=== PATIENT | female | born 1950 | race Caucasian/White ===

== ENCOUNTER 2019-03-11 10:42 | Outpatient (RCR) | payer MEDICARE, SELFPAY | END 2019-04-22 15:10 | disposition home or self-care (01) | LOC: CHSSENLIFE 10:42 | PROVIDERS: PCP Family Medicine; Visit Provider Psychiatry & Neurology Psychiatry | DX: F33.41 Major depressive disorder, recurrent, in partial remission (principal) | CPT/HCPCS: 90792; 90853; 99213; G0463 ==

== ENCOUNTER 2019-06-23 15:44 | Outpatient (RCR) | payer MEDICARE, SELFPAY | END 2019-09-21 23:59 | disposition home or self-care (01) | LOC: CHSSENLIFE 15:44 | PROVIDERS: Visit Provider Psychiatry & Neurology Psychiatry | DX: F33.1 Major depressive disorder, recurrent, moderate (principal); F01.50 Vascular dementia, unspecified severity, without behavioral disturbance, psychotic disturbance, mood disturbance, and anxiety | CPT/HCPCS: 90792; 90834; 90837; 90853; 99213; G0463 ==

== ENCOUNTER 2019-07-04 21:21 | Emergency (ER) | payer MEDICARE, SELFPAY ==
--- NOTE | ~2019-07-04 | CT_ITS ---
EXAMINATION: CT brain wo con DATE: 07/04/2019 22:44 INDICATION: Slurred speech, dizziness, paresis. History of cerebrovascular accident. TECHNIQUE: Computed tomography (CT) of the head was performed without intravenous contrast. The mA wa s adjusted according to patient size. Iterative reconstruction technique was employed. Exam dose: 60 5.33 mGy-cm total exam DLP. COMPARISON: 02/27/2019 CT brain FINDINGS: Again noted is an old cerebrovascular accident with involvement of the right frontal, tempo ral and parietal lobes and right basal ganglia in the middle cerebral artery distribution. CT is not sensitive for detection of hyperacute ischemic infarct. Otherwise no intracranial mass lesi on or hemorrhage or cerebrovascular accident, midline shift or mass effect is detected. There are bilateral vertebral artery and carotid siphon internal carotid artery calcifications. There is nonspecific diminished attenuation cerebral white matter, likely related to chronic small vessel ischemic changes. No subdural or epidural hematoma is evident. No mastoid effusions are noted. The included paranasal sinuses are unremarkable. No fracture or bone destruction of the cranial vault. IMPRESSION: Chronic right-sided cerebrovascular infarct in right middle cerebral artery territory; n o acute intracranial finding Cerebral atherosclerosis and chronic small vessel ischemic changes of the cerebral white matter Reviewed, dictated and finalized at [facility]. Reviewed, dictated and finalized at [facility]. IMPRESSION: Chronic right-sided cerebrovascular infarct in right middle cerebr al artery territory; no acute intracranial finding Cerebral atherosclerosis and chronic small vessel ischemic changes of the cereb ral white matter
--- NOTE | ~2019-07-04 | CT_ITS ---
EXAMINATION: CTA chest PE protocol DATE: 07/04/2019 23:24 INDICATION: Chest pain. Positive d-dimer. TECHNIQUE: Computed tomography angiography (CTA) of the chest was performed with 100 mL Omnipaque-350 intravenous contrast timed to evaluate the pulmonary arteries. Coronal maximum intensity projection 3D-reconstructions were created by the technologist. Automated exposure control and iterative reconst ruction technique were employed. Exam dose: 694.50 mGy-cm total exam DLP. COMPARISON: 07/06/2018 CT chest abdomen pelvis 09/16/2017 CT pulmonary scan FINDINGS: There is technically fair contrast opacification of the pulmonary arteries. Examination is limited by motion. There is no apparent pulmonary embolus to the larger segmental pulmonary arterial level. The peripheral vasculature is not optimally evaluated for pulmonary embolism. There is aortic, great vessel and coronary artery calcification. No thoracic or proximal abdominal ao rtic aneurysm or dissection. No hilar or mediastinal mass lesion or lymphadenopathy. Thyroid goiter is noted. There is a small sliding hiatal hernia. Respiratory motion compromises evaluation of the lungs but no infiltrate or consolidation is evident. Included skeletal structures are unremarkable. IMPRESSION: No evidence of pulmonary embolism to these larger segmental pulmonary arterial level Reviewed, dictated and finalized at [facility]. Reviewed, dictated and finalized at [facility]. IMPRESSION: No evidence of pulmonary embolism to these larger segmental pulmon daphne arterial level
--- NOTE | ~2019-07-04 | XR_ITS ---
EXAMINATION: XR chest 2V DATE: 07/04/2019 22:45 INDICATION: Chest pain and weakness TECHNIQUE: frontal and lateral views of the chest were obtained. COMPARISON: Chest radiograph and CT dated 07/06/2018 FINDINGS: The lungs remain clear with no focal airspace opacities, pulmonary edema, pleural effusion or pneumot horax. The cardiomediastinal silhouette is normal. Mild thoracic spondylosis. IMPRESSION: 1. No acute cardiopulmonary disease. Reviewed, dictated and finalized at [facility].
[2019-07-04 21:30] VITALS: BP 127/83; PULSE 70; RESP 24; TEMP 37.1; O2SAT 97
--- NOTE | 2019-07-04 21:34 | ECG_ITS ---
Measurements Intervals [place] Rate: 63 P: 31 [place]: 221 QRS: -38 QRSD: 109 T: 66 QT: 417 QTc: 428 Interpretive Statements SINUS RHYTHM WITH FIRST DEGREE AV BLOCK VENTRICULAR PREMATURE COMPLEX LEFT AXIS DEVIATION BASELINE ARTIFACT- I, II, III, AVR, AVL, AVF ABNORMAL ECG Electronically Signed On 07-05-2019 7:29:55 CDT by Ha Lerner D.O.
--- NOTE | 2019-07-04 21:39 | ED.CHESTPAIN ---
HPI - Chest Pain General Chief Complaint: Neuro Symptoms/Deficit Stated Complaint: ambulance Time Seen by Provider: 07/04/19 21:24 Source: patient Mode of arrival: ambulatory Limitations: no limitations History of Present Illness HPI narrative: 68-year-old woman with a history of CVA, COPD, and smoking comes in today complaining of an episode of chest pain, weakness, and feeling hot while sitting on the toilet this evening. She states her symptoms have resolved. Daughter states that she was having slurred speech at the time and sort of fell to her left without losing consciousness or falling to the floor. She denies previous similar symptoms except to say that she did have a stroke 4 years ago that affected her left side. Only remaining deficit is some numbness in her left pinky and ring fingers. She has had no recent chest pain, shortness of breath, cough, cold symptoms, fever, travel or sick exposures. She states she took a regular size aspirin today like she does every day. MD complaint: chest pain Onset (ago): hour(s) (1) Timing of current episode: episodic and now resolved Prior episodes: No Onset: other (While on the toilet having BM) Pain location: substernal Pain radiation: none Severity: moderate Quality: other (pressure) Relieving factors: nothing Exacerbating factors: nothing Treatment prior to arrival: none Risk Factors Coronary artery disease risk factors: smoking history, hyperlipidemia and hypertension Related Data On Oral Contraceptives: No Home Medications Medication Instructions Recorded Confirmed furosemide 20 mg PO DAILY 02/27/19 07/04/19 meloxicam 7.5 mg PO HS 02/27/19 07/04/19 oxybutynin chloride 10 mg PO DAILY 02/27/19 07/04/19 paroxetine HCl 10 mg PO HS 02/27/19 07/04/19 aspirin [Michael Aspirin] 325 mg PO DAILY 07/04/19 07/04/19 atorvastatin 40 mg PO HS 07/04/19 07/04/19 calcium citrate-vitamin D3 1 tablet PO DAILY 07/04/19 07/04/19 [Calcium Citrate + D] cyanocobalamin (vitamin B-12) 1,000 mcg PO DAILY 07/04/19 07/04/19 [Vitamin B-12] duloxetine 60 mg PO DAILY 07/04/19 07/04/19 garlic extract 600 mg PO ONCE 07/04/19 07/04/19 lisinopril 20 mg PO DAILY 07/04/19 07/04/19 metoprolol succinate 25 mg PO DAILY 07/04/19 07/04/19 omeprazole 20 mg PO DAILY 07/04/19 07/04/19 oxcarbazepine 900 mg PO BID 07/04/19 07/04/19 Allergies Allergy/AdvReac Type Severity Reaction Status Date / Time adhesive Allergy Intermediate BLISTERS Verified 11/15/18 12:35 ON SKIN diazepam Allergy Unknown Verified 01/27/15 10:38 Review of Systems Constitutional: Constitutional: Denies chills, Denies fatigue, Denies fever(s) and Reports weakness Eyes: Eyes: Denies change in vision and Denies photophobia ENT: Denies dysphagia, Denies nasal congestion and Denies sore throat Cardiovascular: Cardiovascular: Reports as per HPI, Reports chest pain and Denies radiating jaw, neck or arm pain Respiratory: Respiratory: Denies cough, Denies dyspnea and Denies wheezing Gastrointestinal: Gastrointestinal: Denies abdominal pain, Denies diarrhea, Denies nausea and Denies vomiting Genitourinary: Genitourinary: Denies hematuria, Denies nocturia and Denies dysuria Integumentary/Breasts: Skin/Breast: Denies pruritus, Denies erythema and Denies rash Neurologic: Denies vertigo, Denies dizziness and Denies syncope Psychiatric: Psychiatric: Denies anxiety and Denies depression Endocrine: Endocrine: Denies polydipsia and Denies polyuria Hematologic/Lymphatic: Hematologic/Lymphatic: Denies easy bleeding and Denies easy bruising Allergic/Immunologic: Allergic/Immunologic: Denies lip swelling and Denies wheezing [facility] Past Medical History Medical History (Updated 07/04/19 @ 23:56 by Hayden Cooper MD) COPD (chronic obstructive pulmonary disease) Dyslipidemia GERD (gastroesophageal reflux disease) H/O: CVA (cerebrovascular accident) Surgical History Surgical History
[2019-07-04 22:06] LABS: Basophils Absolute Auto 0.04 K/mm3 (0.00-0.10); Basophils Percent Auto 0.5 % (0.0-1.0); Eosinophils Absolute Auto 0.12 K/mm3 (0.02-0.50); Eosinophils Percent Auto 1.6 % (1.0-6.0); Hematocrit 35.4 % (35.0-42.0); Hemoglobin 11.2 g/dL (11.7-13.8); Immature Granulocyte Absolute 0.03 K/mm3 (0.00-0.00); Immature Granulocyte Percent A 0.4 % (0.0-0.0); Lymphocytes Absolute Auto 2.15 K/mm3 (1.10-4.50); Lymphocytes Percent Auto 28.6 % (18.0-42.0); Mean Corpuscular HGB Conc 31.6 g/dL (32.0-36.0); Mean Corpuscular Hemoglobin 27.1 pg (27.0-31.0); Mean Corpuscular Volume 85.5 fL (78.0-102.0); Mean Platelet Volume 9.3 fl (9.2-11.8); Monocytes Absolute Auto 0.48 K/mm3 (0.10-0.90); Monocytes Percent Auto 6.4 % (2.0-11.0); Neutrophils Absolute Auto 4.7 K/mm3 (1.7-7.2); Neutrophils Percent Auto 62.5 % (50.0-70.0); Platelet Count Result 273 K/mm3 (150-420); Red Blood Count 4.14 M/mm3 (4.20-5.40); Red Cell Distribution Width 15.4 % (11.6-14.4); White Blood Count 7.5 K/mm3 (4.8-10.8)
[2019-07-04 22:11] LABS: Add Urine Microscopic? YES; Appearance Urine Sl Cloudy (Clear); Bilirubin Urine Negative (Negative); Blood Urine Negative (Negative); Color Urine Yellow (Yellow); Glucose Urine UA Negative (Negative); Ketones Urine Trace (Negative); Leukocyte Esterase Ur Negative LEU/UL (Negative); Nitrate Urine Positive (Negative); Protein Urine Trace (Negative); Specific Grav Ur >= 1.030 (1.010-1.020); Urobilinogen Urine 0.2 mg/dL (0.2-1.0); pH Urine 5.5 (5.0-8.0)
[2019-07-04 22:16] LABS: CRP 0.4 mg/dL (0.0-0.9)
[2019-07-04 22:18] LABS: Occult Blood Negative (Negative)
--- NOTE | 2019-07-04 22:18 | PC.NURSE ---
PT UP TO USE COMMODE AGAIN, PT STATES SHE HAS PASSED A LOT OF STOOL SINCE THIS EVENT.
[2019-07-04 22:19] LABS: Bacteria Urine 3+ /hpf; Mucus Urine None seen /lpf; RBC Urine None seen /hpf (0-2); Squamous Epithelial Cell Urine Moderate /hpf (Few); WBC Urine None seen /hpf (0-3)
[2019-07-04 22:20] LABS: Alanine Aminotransferase 15 U/L (14-59); Albumin Level 3.2 g/dL (3.4-5.0); Alkaline Phosphatase 125 U/L (46-116); Anion Gap 14.2 mmol/L (7-16); Aspartate Amino Transferase 14 U/L (15-37); Bilirubin,Total 0.1 mg/dL (0.00-1.00); Blood Urea Nitrogen 23 mg/dL (7-18); Carbon Dioxide 28 mmol/L (21-32); Chloride 101 mmol/L (98-108); Estimated Glomerular Filt Rate 41; Glucose 136 mg/dL (70-99); Osmolality Calculated 295 mOsm/kg (285-295); Potassium 3.2 mmol/L (3.5-5.1); Sodium 140 mmol/L (136-145); Total Protein 6.6 g/dL (6.4-8.2)
[2019-07-04 22:23] LABS: Partial Thromboplastin Time 22.6 SEC (22.3-31.6)
[2019-07-04 22:25] LABS: Lactic Acid 1.7 mmol/L (0.4-2.0); Troponin I 0.03 ng/mL (0.00-0.056)
[2019-07-04 22:33] LABS: D Dimer 12.88 mg/L (0.19-0.50)
[2019-07-04 23:37] VITALS: BP 178/72; PULSE 73; O2SAT 99
[2019-07-05] MEDS: POTASSIUM CHLORIDE 20 MEQ PACKET (FOR LIQUID) PO (00:02)
--- NOTE | 2019-07-05 00:25 | PC.NURSE ---
no complaint of chest pain per patient, im ready to go home .
[2019-07-05 00:30] VITALS: BP 180/77; PULSE 73; RESP 18; TEMP 36.6; O2SAT 97
== END 2019-07-05 00:51 | disposition home or self-care (01) ==
PROVIDERS: Emergency Provider Emergency Medicine
DX: N39.0 Urinary tract infection, site not specified (principal); R07.9 Chest pain, unspecified; J44.9 Chronic obstructive pulmonary disease, unspecified; E78.5 Hyperlipidemia, unspecified; K21.9 Gastro-esophageal reflux disease without esophagitis; Z86.73 Personal history of transient ischemic attack (TIA), and cerebral infarction without residual deficits
CPT/HCPCS: 36415; 70450; 71046; 71275; 80053; 81001; 82272; 83605; 84484; 85025; 85380; 85610; 85730; 86140; 87040; 87077; 87086; 87088; 87186; 93005; 96365; 99284; A9270; J0696; Q9965

== ENCOUNTER 2019-09-16 13:48 | Outpatient (RCR) | payer MEDICARE, SELFPAY | END 2019-10-28 14:09 | disposition home or self-care (01) | LOC: CHSSENLIFE 13:48 | PROVIDERS: PCP Family Medicine; Visit Provider Psychiatry & Neurology Psychiatry | DX: F33.1 Major depressive disorder, recurrent, moderate (principal); F01.50 Vascular dementia, unspecified severity, without behavioral disturbance, psychotic disturbance, mood disturbance, and anxiety | CPT/HCPCS: 90853; 99213; G0463 ==

== ENCOUNTER 2019-11-15 23:18 | Emergency (ER) | payer MEDICARE, SELFPAY ==
--- NOTE | ~2019-11-15 | XR_ITS ---
EXAMINATION: XR chest 1V portable EXAM DATE: 11/16/2019 00:49 INDICATION: Syncope, vomiting. TECHNIQUE: Portable AP frontal chest x-ray was obtained. Comparison is made to prior examination from 07/04/2019. FINDINGS: The lungs are clear. There are no pleural effusions. Cardiac silhouette is prominent but magnified on this AP technique. There is no pneumothorax suspected. The bones and soft tissues are unremarkable. IMPRESSION: No acute cardiopulmonary findings. Reviewed, dictated and finalized at [facility].
--- NOTE | ~2019-11-15 | CT_ITS ---
EXAMINATION: CT brain & sinus wo con DATE: 11/15/2019 23:35 INDICATION: Syncopal episode TECHNIQUE: Computed tomography (CT) of the head was performed without intravenous contrast. Sagittal and coronal reconstructions were performed. The mA was adjusted according to patient size. Iterative reconstruction technique was employed. The dose-length product was 681.00 mGy-cm. COMPARISON: head CT dated 07/04/2019 FINDINGS: Again seen are old infarcts in the right frontal, parietal and occipital lobes, also involving the ri ght basal ganglia. No acute intracranial hemorrhage, acute infarction or abnormal extra axial fluid c ollection. No interval change in mild expected dilation of the anterior body of the right lateral marguerite tricle. No mass/mass effect. The orbits, paranasal sinuses and mastoid air cells are normal. Intracra nial calcified cerebral atherosclerosis is noted. IMPRESSION: 1. No acute intracranial process. 2. Old infarcts involving the right frontal, parietal and occipital lobes and right basal ganglia. Reviewed, dictated and finalized at [facility]. IMPRESSION: 1. No acute intracranial process. 2. Old infarcts involving the right frontal, parietal and occipital lobes and r ight basal ganglia.
[2019-11-15 23:18] VITALS: BP 72/36; PULSE 76; RESP 20; TEMP 36.8; O2SAT 96
[2019-11-15 23:30] VITALS: BP 86/54; PULSE 75; RESP 20; O2SAT 98
--- NOTE | 2019-11-15 23:33 | ED.NEUROSD ---
HPI - Neuro Symptoms/Deficit General Chief Complaint: Suspected CVA Stated Complaint: Syncope episode Time Seen by Provider: 11/15/19 23:34 History of Present Illness HPI Narrative: 68-year-old female patient is brought to the emergency department by EMS from her residence with complaints of a syncopal episode. According to the daughter the patient had been doing fine until she went into the bathroom because she felt like she was going to have a bowel movement. The patient called the doctor in [place] to help her to get up and had 1-2 small emesis and was very lightheaded and was in and out of consciousness. There was no injury sustained at the time. The EMS was called. EMS noted some facial drooping as well as placed distally on the left side. The patient was taken straight to the CT scan for CVA protocol. The patient is fully awake and is able to provide the history states that she felt lightheaded as she was sitting on the toilet. She denies having had any headache or chest pain. She denies having abdominal pain. She does remember the paramedics picking her up. The patient has had a similar episode in the past according to her daughter and has had history of TIAs. in the past. Per daughter the patient has had frequent falls at home in the recent past. Related Data Home Medications Medication Instructions Recorded Confirmed furosemide 20 mg PO DAILY 02/27/19 07/04/19 meloxicam 7.5 mg PO HS 02/27/19 07/04/19 oxybutynin chloride 10 mg PO DAILY 02/27/19 07/04/19 paroxetine HCl 10 mg PO HS 02/27/19 07/04/19 aspirin [Michael Aspirin] 325 mg PO DAILY 07/04/19 07/04/19 atorvastatin 40 mg PO HS 07/04/19 07/04/19 calcium citrate-vitamin D3 1 tablet PO DAILY 07/04/19 07/04/19 [Calcium Citrate + D] cyanocobalamin (vitamin B-12) 1,000 mcg PO DAILY 07/04/19 07/04/19 [Vitamin B-12] duloxetine 60 mg PO DAILY 07/04/19 07/04/19 garlic extract 600 mg PO ONCE 07/04/19 07/04/19 lisinopril 20 mg PO DAILY 07/04/19 07/04/19 metoprolol succinate 25 mg PO DAILY 07/04/19 07/04/19 omeprazole 20 mg PO DAILY 07/04/19 07/04/19 oxcarbazepine 900 mg PO BID 07/04/19 07/04/19 Allergies Allergy/AdvReac Type Severity Reaction Status Date / Time adhesive Allergy Intermediate BLISTERS Verified 11/15/18 12:35 ON SKIN diazepam Allergy Unknown Verified 01/27/15 10:38 Review of Systems Review of Systems: All systems reviewed & are unremarkable except as noted in HPI and below Constitutional: Constitutional: Reports no additional constitutional complaints, Denies chills, Denies fatigue, Denies fever(s) and Denies weakness Eyes: Eyes: Reports no additional eye complaints ENT: Denies dysphagia, Reports dizziness, Denies nasal congestion and Denies sore throat Cardiovascular: Cardiovascular: Denies chest pain, Denies rapid heart rate and Denies slow heart rate Respiratory: Respiratory: Reports no additional respiratory complaints, Denies cough and Denies dyspnea Gastrointestinal: Gastrointestinal: Denies abdominal pain, Denies nausea and Reports vomiting Genitourinary: Genitourinary: Reports no additional female genitourinary complaints Musculoskeletal: Musculoskeletal: Reports no additional musculoskeletal complaints Integumentary/Breasts: Skin/Breast: Reports system reviewed and no additional complaints, except as docu Neurologic: Reports system reviewed and no additional complaints, except as documented, Reports dizziness and Reports syncope PMFSH Past Medical History Medical History COPD (chronic obstructive pulmonary disease) Dyslipidemia GERD (gastroesophageal reflux disease) H/O: CVA (cerebrovascular accident) Surgical History Surgical History H/O arthroscopic knee surgery H/O partial nephrectomy left H/O: hysterectomy Hx of tonsillectomy Hx of ventral hernia repair Lipoma of back Family History Family History (Reviewed
--- NOTE | 2019-11-15 23:41 | ECG_ITS ---
Measurements Intervals [place] Rate: 68 P: 38 [place]: 191 QRS: -50 QRSD: 102 T: 56 QT: 410 QTc: 437 Interpretive Statements SINUS RHYTHM LEFT AXIS DEVIATION INCOMPLETE RIGHT BUNDLE BRANCH BLOCK BORDERLINE ST ABNORMALITY- HIGH LATERAL LEADS BASELINE ARTIFACT- I, II, III, AVR, AVL, AVF, V1 BORDERLINE ECG Electronically Signed On 11-16-2019 6:55:05 CDT by Ha Lerner D.O.
[2019-11-15 23:47] VITALS: BP 86/54; PULSE 76; RESP 20; TEMP 36.4; O2SAT 97
[2019-11-15 23:55] LABS: Basophils Absolute Auto 0.05 K/mm3 (0.00-0.10); Basophils Percent Auto 0.5 % (0.0-1.0); Eosinophils Absolute Auto 0.14 K/mm3 (0.02-0.50); Eosinophils Percent Auto 1.3 % (1.0-6.0); Hematocrit 40.4 % (35.0-42.0); Hemoglobin 12.8 g/dL (11.7-13.8); Immature Granulocyte Absolute 0.05 K/mm3 (0.00-0.00); Immature Granulocyte Percent A 0.5 % (0.0-0.0); Lymphocytes Absolute Auto 2.47 K/mm3 (1.10-4.50); Lymphocytes Percent Auto 22.8 % (18.0-42.0); Mean Corpuscular HGB Conc 31.7 g/dL (32.0-36.0); Mean Corpuscular Hemoglobin 26.4 pg (27.0-31.0); Mean Corpuscular Volume 83.3 fL (78.0-102.0); Monocytes Absolute Auto 0.58 K/mm3 (0.10-0.90); Monocytes Percent Auto 5.4 % (2.0-11.0); Neutrophils Absolute Auto 7.5 K/mm3 (1.7-7.2); Neutrophils Percent Auto 69.5 % (50.0-70.0); Platelet Count Result 339 K/mm3 (150-420); Red Blood Count 4.85 M/mm3 (4.20-5.40); Red Cell Distribution Width 15.7 % (11.6-14.4); White Blood Count 10.8 K/mm3 (4.8-10.8)
[2019-11-16] VITALS (7 sets, daily range): BP systolic 90–162; BP diastolic 54–90; PULSE 68–80; RESP 20–24; TEMP 36–37.7; O2SAT 94–97
[2019-11-16 00:08] LABS: Prothrombin Time 10.5 Seconds (9.64-11.0)
[2019-11-16 00:19] LABS: Alanine Aminotransferase 19 U/L (14-59); Albumin Level 3.6 g/dL (3.4-5.0); Alkaline Phosphatase 129 U/L (46-116); Anion Gap 12 mmol/L (8-16); Aspartate Amino Transferase 13 U/L (15-37); Bilirubin,Total 0.3 mg/dL (0.00-1.00); Blood Urea Nitrogen 20 mg/dL (7-18); Calcium 9.1 mg/dL (8.5-10.1); Carbon Dioxide 27 mmol/L (21-32); Chloride 97 mmol/L (98-108); Creatine Kinase 57 U/L (26-192); Estimated Glomerular Filt Rate 36; Glucose 159 mg/dL (70-99); Magnesium 1.9 mg/dL (1.8-2.4); Osmolality Calculated 287 mOsm/kg (285-295); Potassium 3.1 mmol/L (3.5-5.1); Sodium 136 mmol/L (136-145); Total Protein 7.2 g/dL (6.4-8.2)
[2019-11-16 00:21] LABS: Troponin I < 0.02 ng/mL (0.00-0.056)
[2019-11-16 00:40] LABS: Add Urine Microscopic? YES; Appearance Urine Clear (Clear); Bilirubin Urine 1+ (Negative); Blood Urine Negative (Negative); Color Urine Yellow (Yellow); Glucose Urine UA Negative (Negative); Ketones Urine 1+ (Negative); Leukocyte Esterase Ur Negative (Negative); Nitrate Urine Positive (Negative); Protein Urine Trace (Negative); Specific Grav Ur 1.025 (1.010-1.020); Urobilinogen Urine 0.2 mg/dL (0.2-1.0); pH Urine 5.5 (5.0-8.0)
--- NOTE | 2019-11-16 00:45 | PC.NURSE ---
IV in left wrist and right AC both infiltrated. New IV started on right upper chest
[2019-11-16] MEDS: SODIUM CHLORIDE 0.9% IV 1,000 ML 1000 ML (00:48)
[2019-11-16 00:49] LABS: Bacteria Urine 3+ /hpf; RBC Urine 0-2 /hpf (0-2); Squamous Epithelial Cell Urine Rare /hpf (Few); WBC Urine 0-3 /hpf (0-3)
--- NOTE | 2019-11-16 01:35 | PC.NURSE ---
LISA hernandez from [facility] speaking with dr mack awaiting return call.
--- NOTE | 2019-11-16 02:20 | ED.NEUROSD ---
HPI - Neuro Symptoms/Deficit General Chief Complaint: Suspected CVA Stated Complaint: Syncope episode Time Seen by Provider: 11/15/19 23:34 Related Data Home Medications Medication Instructions Recorded Confirmed furosemide 20 mg PO DAILY 02/27/19 07/04/19 meloxicam 7.5 mg PO HS 02/27/19 07/04/19 oxybutynin chloride 10 mg PO DAILY 02/27/19 07/04/19 paroxetine HCl 10 mg PO HS 02/27/19 07/04/19 aspirin [Michael Aspirin] 325 mg PO DAILY 07/04/19 07/04/19 atorvastatin 40 mg PO HS 07/04/19 07/04/19 calcium citrate-vitamin D3 1 tablet PO DAILY 07/04/19 07/04/19 [Calcium Citrate + D] cyanocobalamin (vitamin B-12) 1,000 mcg PO DAILY 07/04/19 07/04/19 [Vitamin B-12] duloxetine 60 mg PO DAILY 07/04/19 07/04/19 garlic extract 600 mg PO ONCE 07/04/19 07/04/19 lisinopril 20 mg PO DAILY 07/04/19 07/04/19 metoprolol succinate 25 mg PO DAILY 07/04/19 07/04/19 omeprazole 20 mg PO DAILY 07/04/19 07/04/19 oxcarbazepine 900 mg PO BID 07/04/19 07/04/19 Allergies Allergy/AdvReac Type Severity Reaction Status Date / Time adhesive Allergy Intermediate BLISTERS Verified 11/15/18 12:35 ON SKIN diazepam Allergy Unknown Verified 01/27/15 10:38 [facility] Past Medical History Medical History COPD (chronic obstructive pulmonary disease) Dyslipidemia GERD (gastroesophageal reflux disease) H/O: CVA (cerebrovascular accident) Surgical History Surgical History H/O arthroscopic knee surgery H/O partial nephrectomy left H/O: hysterectomy Hx of tonsillectomy Hx of ventral hernia repair Lipoma of back Family History Family History Father Family history of malignant neoplasm Family history of coronary artery disease Family history of renal failure Sibling Family history of kidney stones Family history of diabetes mellitus in first degree relative Family history of coronary artery disease Family history of lupus erythematosus Mother Patient's mother is Acute myocardial infarction Social History Social History Smoking status: Smoker, status unknown Alcohol intake: current Course Vital Signs Vital signs: Vital Signs Temperature 36.8 C 11/15/19 23:18 Pulse Rate 76 11/15/19 23:18 Respiratory Rate 20 11/15/19 23:18 Blood Pressure 72/36 L 11/15/19 23:18 Pulse Oximetry 96 11/15/19 23:18 Temperature 36.8 C 11/15/19 23:18 Pulse Rate 76 11/15/19 23:18 Respiratory Rate 20 11/15/19 23:18 Blood Pressure 72/36 L 11/15/19 23:18 Pulse Oximetry 96 11/15/19 23:18 MDM - Neuro Symptoms/Deficit Lab Data Result diagrams: 11/15/19 23:51 11/15/19 23:51 Labs: Lab Results 11/15/19 11/15/19 11/15/19 Range/Units 23:41 23:51 23:51 WBC 10.8 (4.8-10.8) K/mm3 RBC 4.85 (4.20-5.40) M/mm3 Hgb 12.8 (11.7-13.8) g/dL Hct 40.4 (35.0-42.0) % MCV 83.3 (78.0-102.0) fL MCH 26.4 L (27.0-31.0) pg MCHC 31.7 L (32.0-36.0) g/dL RDW 15.7 H (11.6-14.4) % Plt Count 339 (150-420) K/mm3 MPV 9.0 L (9.2-11.8) fl Immature Gran % (Auto) 0.5 H (0.0-0.0) % Neut % (Auto) 69.5 (50.0-70.0) % Lymph % (Auto) 22.8 (18.0-42.0) % [place] % (Auto) 5.4 (2.0-11.0) % Eos % (Auto) 1.3 (1.0-6.0) % Baso % (Auto) 0.5 (0.0-1.0) % Lymph # (Auto) 2.47 (1.10-4.50) K/mm3 [place] # (Auto) 0.58 (0.10-0.90) K/mm3 Eos # (Auto) 0.14 (0.02-0.50) K/mm3 Baso # (Auto) 0.05 (0.00-0.10) K/mm3 Abs Immat Gran (auto) 0.05 H (0.00-0.00) K/mm3 Absolute Neuts (auto) 7.5 H (1.7-7.2) K/mm3 Absolute Nucleated RBC 0.00 (0.00-0.00) K/mm3 Nucleated RBC % 0.0 (0-0.0) % PT 10.5 (9.64-11.0) Seconds INR 1.0 Sodium (136-145) mmol/L Potassium (3.5-5.1) mmol/L Chloride (98-108) mmol/L
--- NOTE | 2019-11-16 02:38 | PC.NURSE ---
Jigar arrived from ER and placed in room 206.
[2019-11-16] MEDS: SODIUM CHLORIDE 0.9% IV 1,000 ML 150 ML IV CONT (02:59)
--- NOTE | 2019-11-16 03:00 | PC.NURSE ---
Patient to room 206 as ER hold. Patient's daughter accompanied patient. A&Ox3. Patient color pink. Skin w/d. Respirations even and unlabored. #20 IV in right upper chest. Patient's bowles catheter patent and draining small amount of straw colored urine. Patient denies pain/SOB/complaints @ this time. Encouraged daughter to go home and rest and explained that nurse would be done with admission process shortly and then patient would be encouraged to rest also. Call light in reach.
--- NOTE | 2019-11-16 03:30 | PC.NURSE ---
0140 multiple episodes of incontinent stool. skin care given and brief applied. ortho static blood pressures obtained per staff at [facility]. standing 63/27 hr 56 became nauseous, lethargic, pale ,diaphortic,dizzy and had stool on the floor. pt stated i need to sit down now sitting 90/56 64 starting to feel better lying 111/54 64 sapo2 97% room air reported to dr mack,, skin care given.
--- NOTE | 2019-11-16 03:41 | PC.NURSE ---
0205 pt accepted to [facility] [place] daughters request. pt has neuro doctors at that facility. no beds available at this time. pt to go to room 206 for er hold services until bed availability. report to raghav ryder.
--- NOTE | 2019-11-16 04:00 | PC.NURSE ---
Patient appears to be sleeping by the rise and fall of her chest. Respirations even and unlabored. No distress noted. IV fluids infusing without difficulty to site in right upper chest. Sawant catheter patent and draining straw colored urine. Call light in reach.
--- NOTE | 2019-11-16 05:00 | PC.NURSE ---
Patient appears to be sleeping by the rise and fall of her chest. Respirations even and unlabored. No distress noted. IV fluids infusing without difficulty to site in right upper chest. Sawant catheter patent and emptied of straw colored urine. Call light in reach.
--- NOTE | 2019-11-16 07:26 | ED.NEUROSD ---
HPI - Neuro Symptoms/Deficit General Chief Complaint: Suspected CVA Stated Complaint: Syncope episode Time Seen by Provider: 11/15/19 23:34 Related Data Home Medications Medication Instructions Recorded Confirmed furosemide 20 mg PO DAILY 02/27/19 11/16/19 meloxicam 7.5 mg PO HS 02/27/19 11/16/19 oxybutynin chloride 10 mg PO DAILY 02/27/19 11/16/19 paroxetine HCl 10 mg PO HS 02/27/19 11/16/19 aspirin [Michael Aspirin] 325 mg PO DAILY 07/04/19 11/16/19 atorvastatin 40 mg PO HS 07/04/19 11/16/19 calcium citrate-vitamin D3 1 tablet PO DAILY 07/04/19 11/16/19 [Calcium Citrate + D] cyanocobalamin (vitamin B-12) 1,000 mcg PO DAILY 07/04/19 11/16/19 [Vitamin B-12] duloxetine 60 mg PO DAILY 07/04/19 11/16/19 garlic extract 600 mg PO ONCE 07/04/19 11/16/19 lisinopril 20 mg PO DAILY 07/04/19 11/16/19 metoprolol succinate 25 mg PO DAILY 07/04/19 11/16/19 omeprazole 20 mg PO DAILY 07/04/19 11/16/19 oxcarbazepine 900 mg PO BID 07/04/19 11/16/19 Allergies Allergy/AdvReac Type Severity Reaction Status Date / Time adhesive Allergy Intermediate BLISTERS Verified 11/15/18 12:35 ON SKIN diazepam Allergy Unknown Verified 01/27/15 10:38 [facility] Past Medical History Medical History COPD (chronic obstructive pulmonary disease) Dyslipidemia GERD (gastroesophageal reflux disease) H/O: CVA (cerebrovascular accident) Surgical History Surgical History H/O arthroscopic knee surgery H/O partial nephrectomy left H/O: hysterectomy Hx of tonsillectomy Hx of ventral hernia repair Lipoma of back Family History Family History Father Family history of malignant neoplasm Family history of coronary artery disease Family history of renal failure Sibling Family history of kidney stones Family history of diabetes mellitus in first degree relative Family history of coronary artery disease Family history of lupus erythematosus Mother Patient's mother is Acute myocardial infarction Social History Social History Smoking status: Smoker, status unknown Alcohol intake: current Course Vital Signs Vital signs: Vital Signs Temperature 36.8 C 11/15/19 23:18 Pulse Rate 76 11/15/19 23:18 Respiratory Rate 20 11/15/19 23:18 Blood Pressure 72/36 L 11/15/19 23:18 Pulse Oximetry 96 11/15/19 23:18 Temperature 36.0 C L 11/16/19 02:45 Pulse Rate 70 11/16/19 02:45 Respiratory Rate 20 11/16/19 02:45 Blood Pressure 141/68 H 11/16/19 02:45 Pulse Oximetry 94 11/16/19 02:45 MDM - Neuro Symptoms/Deficit Lab Data Result diagrams: 11/15/19 23:51 11/15/19 23:51 Labs: Lab Results 11/15/19 11/15/19 11/15/19 Range/Units 23:41 23:51 23:51 WBC 10.8 (4.8-10.8) K/mm3 RBC 4.85 (4.20-5.40) M/mm3 Hgb 12.8 (11.7-13.8) g/dL Hct 40.4 (35.0-42.0) % MCV 83.3 (78.0-102.0) fL MCH 26.4 L (27.0-31.0) pg MCHC 31.7 L (32.0-36.0) g/dL RDW 15.7 H (11.6-14.4) % Plt Count 339 (150-420) K/mm3 MPV 9.0 L (9.2-11.8) fl Immature Gran % (Auto) 0.5 H (0.0-0.0) % Neut % (Auto) 69.5 (50.0-70.0) % Lymph % (Auto) 22.8 (18.0-42.0) % [place] % (Auto) 5.4 (2.0-11.0) % Eos % (Auto) 1.3 (1.0-6.0) % Baso % (Auto) 0.5 (0.0-1.0) % Lymph # (Auto) 2.47 (1.10-4.50) K/mm3 [place] # (Auto) 0.58 (0.10-0.90) K/mm3 Eos # (Auto) 0.14 (0.02-0.50) K/mm3 Baso # (Auto) 0.05 (0.00-0.10) K/mm3 Abs Immat Gran (auto) 0.05 H (0.00-0.00) K/mm3 Absolute Neuts (auto) 7.5 H (1.7-7.2) K/mm3 Absolute Nucleated RBC 0.00 (0.00-0.00) K/mm3 Nucleated RBC % 0.0 (0-0.0) % PT 10.5 (9.64-11.0) Seconds INR 1.0 Sodium (136-145) mmol/L Potassium (3.5-5.1) mmol/L Chloride (98-108) mmol
[2019-11-16] MEDS: CYANOCOBALAMIN 1,000 MCG TABLET 1000 MCG PO (10:29)
[2019-11-16] MEDS: ASPIRIN 325 MG ENTERIC TABLET PO (10:29)
[2019-11-16] MEDS: DULoxetine HCL 20 MG CAPSULE.DR 60 MG PO (10:29)
[2019-11-16] MEDS: CALCIUM/VITAMIN D 250 MG TABLET 1 TABLET PO (10:30)
[2019-11-16] MEDS: PANTOPRAZOLE 40 MG TABLET PO (10:30)
[2019-11-16] MEDS: OXcarbazepine 300 MG TABLET 900 MG PO (10:30)
--- NOTE | 2019-11-16 10:33 | PC.NURSE ---
called [facility] in [place] to check on bed status. Spoke with Eli. No beds at this time. Will call back again this afternoon.
--- NOTE | 2019-11-16 10:48 | PC.NURSE ---
Sawant catheter removed, fluids stopped per Dr. Lamb. Patient's ortho static vitals neg this AM. Patient up to commode and recliner with gait belt, wheeled walker. Call light in reach.
--- NOTE | 2019-11-16 10:51 | PC.NURSE ---
Naheed MOORE RN and Dr. Lamb updated on bed status at [facility]
[2019-11-16] MEDS: ACETAMINOPHEN 325 MG TABLET 650 MG PO (11:28)
--- NOTE | 2019-11-16 13:40 | PC.NURSE ---
Patient ambulated from recliner to bed. Call light in reach
--- NOTE | 2019-11-16 17:47 | PC.NURSE ---
Report called to Carol carpenter [facility]
--- NOTE | 2019-11-16 19:43 | PC.NURSE ---
Patient left for transfer to [facility] with [facility] ambulance. Patient belongings taken home by daughter.
== END 2019-11-16 19:39 | disposition short-term general hospital (02) ==
LOC: CHSED 11-16 07:35 → CHS2ND 11-16 07:39
PROVIDERS: Emergency Provider Emergency Medicine
DX: I95.1 Orthostatic hypotension (principal); G45.9 Transient cerebral ischemic attack, unspecified; J44.9 Chronic obstructive pulmonary disease, unspecified; E78.5 Hyperlipidemia, unspecified; K21.9 Gastro-esophageal reflux disease without esophagitis
CPT/HCPCS: 36415; 70450; 70486; 71045; 80053; 81001; 82550; 82553; 83735; 84484; 85025; 85610; 93005; 96361; 96365; 99285; A9270; J0696; J7030

== ENCOUNTER 2019-12-04 21:28 | Emergency (ER) | payer MEDICARE, SELFPAY ==
[2019-12-04 21:43] VITALS: BP 141/75; PULSE 80; RESP 20; TEMP 36.3; O2SAT 97
--- NOTE | 2019-12-04 21:56 | ED.GENADULT ---
HPI - General Adult General Chief complaint: Fall Stated complaint: fell out of bed hit left side cut behind ear Related Data Home Medications Medication Instructions Recorded Confirmed furosemide 20 mg PO DAILY 02/27/19 11/16/19 meloxicam 7.5 mg PO HS 02/27/19 11/16/19 oxybutynin chloride 10 mg PO DAILY 02/27/19 11/16/19 paroxetine HCl 10 mg PO HS 02/27/19 11/16/19 aspirin [Michael Aspirin] 325 mg PO DAILY 07/04/19 11/16/19 atorvastatin 40 mg PO HS 07/04/19 11/16/19 calcium citrate-vitamin D3 1 tablet PO DAILY 07/04/19 11/16/19 [Calcium Citrate + D] cyanocobalamin (vitamin B-12) 1,000 mcg PO DAILY 07/04/19 11/16/19 [Vitamin B-12] duloxetine 60 mg PO DAILY 07/04/19 11/16/19 garlic extract 600 mg PO ONCE 07/04/19 11/16/19 lisinopril 20 mg PO DAILY 07/04/19 11/16/19 metoprolol succinate 25 mg PO DAILY 07/04/19 11/16/19 omeprazole 20 mg PO DAILY 07/04/19 11/16/19 oxcarbazepine 900 mg PO BID 07/04/19 11/16/19 Allergies Allergy/AdvReac Type Severity Reaction Status Date / Time adhesive Allergy Intermediate BLISTERS Verified 11/15/18 12:35 ON SKIN diazepam Allergy Unknown Verified 01/27/15 10:38 [facility] Past Medical History Medical History (Updated 12/04/19 @ 21:58 by Jacobo Rodriguez DO) COPD (chronic obstructive pulmonary disease) Dyslipidemia GERD (gastroesophageal reflux disease) H/O: CVA (cerebrovascular accident) Surgical History Surgical History H/O arthroscopic knee surgery H/O partial nephrectomy left H/O: hysterectomy Hx of tonsillectomy Hx of ventral hernia repair Lipoma of back Family History Family History Father Family history of malignant neoplasm Family history of coronary artery disease Family history of renal failure Sibling Family history of kidney stones Family history of diabetes mellitus in first degree relative Family history of coronary artery disease Family history of lupus erythematosus Mother Patient's mother is Acute myocardial infarction Social History Social History Smoking status: Smoker, status unknown Alcohol intake: current Gender identity (if verbalized by the patient): Male Course Vital Signs Vital signs: Vital Signs Temperature 97.3 F L 12/04/19 21:43 Pulse Rate 80 12/04/19 21:43 Respiratory Rate 20 12/04/19 21:43 Blood Pressure 141/75 H 12/04/19 21:43 Pulse Oximetry 97 12/04/19 21:43 Temperature 97.3 F L 12/04/19 21:43 Pulse Rate 80 12/04/19 21:43 Respiratory Rate 20 12/04/19 21:43 Blood Pressure 141/75 H 12/04/19 21:43 Pulse Oximetry 97 12/04/19 21:43 Medical Decision Making Vital Signs Vital Signs: Vital Signs Temperature 97.3 F L 12/04/19 21:43 Pulse Rate 80 12/04/19 21:43 Respiratory Rate 20 12/04/19 21:43 Blood Pressure 141/75 H 12/04/19 21:43 Pulse Oximetry 97 12/04/19 21:43 Temperature 97.3 F L 12/04/19 21:43 Pulse Rate 80 12/04/19 21:43 Respiratory Rate 20 12/04/19 21:43 Blood Pressure 141/75 H 12/04/19 21:43 Pulse Oximetry 97 12/04/19 21:43 Discharge Plan Discharge Clinical Impression: Laceration Patient Disposition: Home, Self-Care Condition: Stable Instructions: Skin Adhesive Care (ED) Additional Instructions: Please return for any new, concerning, or worsening symptoms. Prescriptions: No Action meloxicam 7.5 mg tablet 7.5 mg PO HS RF: 0 paroxetine HCl 20 mg tablet 10 mg PO HS RF: 0 furosemide 20 mg tablet 20 mg PO DAILY RF: 0 oxybutynin chloride 5 mg tablet 10 mg PO DAILY RF: 0 atorvastatin 40 mg Tablet 40 mg PO HS RF: 0 aspirin [Michael Aspirin] 325 mg Tablet 325 mg PO DAILY RF: 0 lisinopril 20 mg Tablet 20 mg PO DAILY RF: 0 cyanocobalamin (vitamin B-12) [Vitamin B-12] 1,000 mcg Tablet 1,000 mcg PO TRINI
[2019-12-04 22:07] VITALS: RESP 16
--- NOTE | 2019-12-04 23:17 | ED.GENADULT ---
HPI - General Adult General Chief complaint: Fall Stated complaint: fell out of bed hit left side cut behind ear Source: patient and family Mode of arrival: ambulatory Limitations: no limitations History of Present Illness HPI narrative: Rachel is a 69 year old woman with a PMH of COPD, dyslipidemia, GERD and previous CVA that presented to the ED with a laceration behind her left ear. She was rolling out of bed when she hit the side of her head on her night stand. No LOC, headache or loss of consciousness. Related Data Home Medications Medication Instructions Recorded Confirmed furosemide 20 mg PO DAILY 02/27/19 11/16/19 meloxicam 7.5 mg PO HS 02/27/19 11/16/19 oxybutynin chloride 10 mg PO DAILY 02/27/19 11/16/19 paroxetine HCl 10 mg PO HS 02/27/19 11/16/19 aspirin [Michael Aspirin] 325 mg PO DAILY 07/04/19 11/16/19 atorvastatin 40 mg PO HS 07/04/19 11/16/19 calcium citrate-vitamin D3 1 tablet PO DAILY 07/04/19 11/16/19 [Calcium Citrate + D] cyanocobalamin (vitamin B-12) 1,000 mcg PO DAILY 07/04/19 11/16/19 [Vitamin B-12] duloxetine 60 mg PO DAILY 07/04/19 11/16/19 garlic extract 600 mg PO ONCE 07/04/19 11/16/19 lisinopril 20 mg PO DAILY 07/04/19 11/16/19 metoprolol succinate 25 mg PO DAILY 07/04/19 11/16/19 omeprazole 20 mg PO DAILY 07/04/19 11/16/19 oxcarbazepine 900 mg PO BID 07/04/19 11/16/19 Allergies Allergy/AdvReac Type Severity Reaction Status Date / Time adhesive Allergy Intermediate BLISTERS Verified 11/15/18 12:35 ON SKIN diazepam Allergy Unknown Verified 01/27/15 10:38 Review of Systems Constitutional: Constitutional: Reports no additional constitutional complaints Eyes: Eyes: Reports no additional eye complaints ENT: Reports system reviewed and no additional complaints, except as documented Cardiovascular: Cardiovascular: Reports no additional cardiovascular complaints Respiratory: Respiratory: Reports no additional respiratory complaints Gastrointestinal: Gastrointestinal: Reports no additional gastrointestinal complaints Genitourinary: Genitourinary: Reports no additional female genitourinary complaints Musculoskeletal: Musculoskeletal: Reports no additional musculoskeletal complaints Integumentary/Breasts: Skin/Breast: Reports as per HPI Neurologic: Reports system reviewed and no additional complaints, except as documented Psychiatric: Psychiatric: Reports no additional psychiatric complaints Endocrine: Endocrine: Reports no additional endocrine complaints Hematologic/Lymphatic: Hematologic/Lymphatic: Reports no additional hematologic/lymphatic complaints Allergic/Immunologic: Allergic/Immunologic: Reports no additional allergic/immunologic complaints PMFSH Past Medical History Medical History COPD (chronic obstructive pulmonary disease) Dyslipidemia GERD (gastroesophageal reflux disease) H/O: CVA (cerebrovascular accident) Surgical History Surgical History H/O arthroscopic knee surgery H/O partial nephrectomy left H/O: hysterectomy Hx of tonsillectomy Hx of ventral hernia repair Lipoma of back Family History Family History Father Family history of malignant neoplasm Family history of coronary artery disease Family history of renal failure Sibling Family history of kidney stones Family history of diabetes mellitus in first degree relative Family history of coronary artery disease Family history of lupus erythematosus Mother Patient's mother is Acute myocardial infarction Social History Social History Smoking status: Smoker, status unknown Alcohol intake: current Gender identity (if verbalized by the patient): Male Exam Const: General: no acute distress and alert Orientation/consciousness: patient nae
== END 2019-12-04 22:08 | disposition home or self-care (01) ==
PROVIDERS: Emergency Provider Family Medicine; PCP Family Medicine
DX: S01.81XA Laceration without foreign body of other part of head, initial encounter (principal); W06.XXXA Fall from bed, initial encounter
CPT/HCPCS: 12011; 99282

== ENCOUNTER 2020-01-05 12:52 | Outpatient (RCR) | payer MEDICARE, SELFPAY ==
--- NOTE | 2020-01-05 13:40 | PTOPEVAL ---
Thank you for referring Rachel Cook to [facility].? The patient is scheduled to be seen for therapy? ___3_x/week for 12 visits. Please review, sign, date and return this plan of care KESHIA. I agree with and certify that the following plan of care is medically necessary. Referring Physician Date Admitting Provider: Attending Provider: PHYSICIAN NOT ON STAFF Referring Provider: *PT Outpatient Evaluation Start: 01/05/20 13:00 Freq: Status: Active Protocol: Document 01/05/20 13:00 JAG (Rec: 01/05/20 13:39 JAG [id number]) Therapy Assessment Status Assessment Status Assessment Status Evaluation Outpatient Past Medical History Neurological History Hx Cerebrovascular Accident (CVA) Yes Hx Seizures Yes Hx Transient Ischemic Attacks (TIA) Yes Cardiovascular History Hx Congestive Heart Failure Yes Hx Hypercholesterolemia Yes Hx Hypertension Yes Respiratory History Hx Bronchitis Yes Gastrointestinal History Hx Gastroesophageal Reflux Disease Yes Musculoskeletal History Hx Orthopedic Surgery Yes: KNEE, WRIST Hx Other Musculoskeletal Disorders Yes HEENT History Hx Tonsillectomy Yes Reproductive History Hx Post Menopausal Yes Psychosocial History Hx Anxiety Yes Hx Depression Yes Evaluation Information Problem Diagnosis frequent falls Onset 12/22/19 Subjective Information Pt. reports that she fell Query Text:As Reported By Patient/ about 2 weeks ago last. She Family reports that she has had numerous falls over the past 6 months. She states that she does use a cane. She states that most falls occur in the home. She is uncertain as to why she falls. She reports that she does have episodes of leg weakness and has trouble getting to a standing position . She reports that her daughter and son-in-law are currently living with her, but she is home alone for most of the day. She reports she remains sedentary for the most part when home alone. She reports that she continues to drive locally, but has family help with tasks such as grocery shopping. She reports
--- NOTE | 2020-01-12 14:12 | PCPTNOTE ---
patient called and cancelled appt for today. ALISA
== END 2020-02-08 23:59 | disposition home or self-care (01) ==
LOC: CHSPT 12:52
DX: R26.81 Unsteadiness on feet (principal); W19.XXXA Unspecified fall, initial encounter
CPT/HCPCS: 97110; 97112; 97116; 97161; 97530

== ENCOUNTER 2020-10-01 18:31 | Inpatient (IN) | payer MEDICARE, SELFPAY ==
--- NOTE | ~2020-10-01 | CT_ITS ---
EXAMINATION: CT abdomen pelvis wo con DATE: 10/01/2020 20:14 INDICATION: Nausea and vomiting TECHNIQUE: Computed tomography (CT) of the abdomen and pelvis was performed without intravenous contr ast. Automated exposure control and iterative reconstruction technique were employed. The dose-length product was 1271.41 mGy-cm. COMPARISON: 11/15/2018 FINDINGS: Lung bases are clear. Heart size is normal. Atherosclerotic coronary artery calcification. No pericar dial or pleural effusion. Small sliding-type hiatal hernia. Mild wall thickening in the distal esopha traci with mild haziness to the immediately surrounding fat suggestive of esophagitis which could be re lated to reflux/recurrent vomiting. Unchanged 2 cm hypodense lesion in the right hepatic lobe most li sultana a cyst or hemangioma. Gallbladder, spleen, pancreas, bilateral adrenal glands and right kidney a re normal. Postoperative changes at the lower pole of the left kidney likely related to prior partial nephrectomy for reported renal cell carcinoma. Again seen is diffuse wall thickening of the colon wh ich in the proximal colon appears related exclusively due to fatty infiltration but which in the more distal colon beginning at the splenic flexure appears to represent a combination of fat and edema wi th mild haziness to the pericolonic fat consistent with likely acute on chronic colitis. No pneumatos is. Small bowel is normal. No obstruction. Sawant catheter in the decompressed bladder. The uterus is not identified and has likely been surgically resected. Very small amount of ascites and the liver and in the deep pelvis. No abscess or free intraperitoneal gas. No pathologically enlarged abdomina l or pelvic lymphadenopathy. Mild thoracic and moderate lumbar spondylosis. Chondrocalcinosis and mil d to moderate osteoarthritis at the bilateral hips. IMPRESSION: 1. Likely acute on chronic distal colitis which could be infectious, inflammatory or ischemic in etio logy. 2. Small sliding-type hiatal hernia and mild wall thickening and surrounding inflammatory stranding a t the distal esophagus suggesting esophagitis related to reflux or recurrent vomiting. 3. Very small amount of likely reactive ascites. Reviewed, dictated and finalized at location A. IMPRESSION: 1. Likely acute on chronic distal colitis which could be infectious, inflammato ry or ischemic in etiology. 2. Small sliding-type hiatal hernia and mild wall thickening and surrounding in flammatory stranding at the distal esophagus suggesting esophagitis related to reflux or recurrent vomiting. 3. Very small amount of likely reactive ascites.
--- NOTE | ~2020-10-01 | CT_ITS ---
EXAMINATION: CT brain wo con DATE: 10/01/2020 20:13 INDICATION: Altered mental status TECHNIQUE: Computed tomography (CT) of the head was performed without intravenous contrast. Sagittal and coronal reconstructions were performed. The mA was adjusted according to patient size. Iterative reconstruction technique was employed. The dose-length product was 605.33 mGy-cm. COMPARISON: head CT dated 11/15/2019 FINDINGS: Again seen are old infarcts in the right frontal, parietal and occipital lobes, also involving the ri ght basal ganglia. No acute intracranial hemorrhage, acute infarction or abnormal extra axial fluid c ollection. No interval change in mild ex vacuo dilation of the anterior body of the right lateral marguerite tricle. No mass/mass effect. The orbits, paranasal sinuses and left mastoid air cells are normal. Hyp opneumatized right mastoid. Intracranial calcified cerebral atherosclerosis is noted. IMPRESSION: 1. No acute intracranial process. 2. Old infarcts involving the right frontal, parietal and occipital lobes and right basal ganglia. Reviewed, dictated and finalized at location A. IMPRESSION: 1. No acute intracranial process. 2. Old infarcts involving the right frontal, parietal and occipital lobes and r ight basal ganglia.
--- NOTE | ~2020-10-01 | XR_ITS ---
EXAMINATION: XR chest 1V portable DATE: 10/01/2020 20:13 INDICATION: Altered mental status TECHNIQUE: frontal view of the chest was obtained. COMPARISON: Chest radiograph dated 11/16/2019 FINDINGS: The lungs remain clear with no focal airspace opacities, pulmonary edema, pleural effusion or pneumot horax. The cardiomediastinal silhouette is normal. Visualized bones and soft tissues are unremarkable . IMPRESSION: 1. No acute cardiopulmonary disease. Reviewed, dictated and finalized at location A.
[2020-10-01 18:30] VITALS: BP 77/48; PULSE 65; RESP 17; TEMP 36.9; O2SAT 99
--- NOTE | 2020-10-01 18:45 | ECG_ITS ---
Measurements Intervals [place] Rate: 59 P: -73 WI: 152 QRS: -67 QRSD: 88 T: 79 QT: 429 QTc: 427 Interpretive Statements SINUS BRADYCARDIA LEFT AXIS DEVIATION LEFT ATRIAL ENLARGEMENT POOR R WAVE PROGRESSION, ANTERIOR LEADS BORDERLINE ECG Electronically Signed On 10-02-2020 6:23:24 CDT by Ha Lerner D.O.
[2020-10-01 19:11] VITALS: BP 70/58
[2020-10-01] MEDS: SODIUM CHLORIDE 0.9% IV 1,000 ML 999 ML IV CONT (19:11)
[2020-10-01 19:17] LABS: Hematocrit 49.2 % (35.0-42.0); Hemoglobin 15.5 g/dL (11.7-13.8); Mean Corpuscular HGB Conc 31.5 g/dL (32.0-36.0); Mean Corpuscular Hemoglobin 26.3 pg (27.0-31.0); Mean Corpuscular Volume 83.4 fL (78.0-102.0); Mean Platelet Volume 9.3 fl (9.2-11.8); Platelet Count Result 476 K/mm3 (150-420); Red Cell Distribution Width 17.2 % (11.6-14.4)
[2020-10-01 19:18] VITALS: BP 92/27; PULSE 65
[2020-10-01] MEDS: NOREPINEPHRINE 8 MG/D5W 250 ML 8 MG/250 ML BAG 9.38 MG IV CONT (19:18)
[2020-10-01 19:22] LABS: White Blood Count 20.9 K/mm3 (4.8-10.8)
[2020-10-01 19:34] LABS: Alanine Aminotransferase 29 U/L (14-59); Albumin Level 3.7 g/dL (3.4-5.0); Alkaline Phosphatase 127 U/L (46-116); Anion Gap 18 mmol/L (8-16); Aspartate Amino Transferase 21 U/L (15-37); Bilirubin,Total 0.4 mg/dL (0.00-1.00); Blood Urea Nitrogen 19 mg/dL (7-18); Calcium 9.4 mg/dL (8.5-10.1); Carbon Dioxide 23 mmol/L (21-32); Chloride 97 mmol/L (98-108); Estimated Glomerular Filt Rate 26; Glucose 171 mg/dL (70-99); Osmolality Calculated 292 mOsm/kg (285-295); SARS-CoV-2 Ag Negative (Negative); Sodium 138 mmol/L (136-145); Total Protein 7.8 g/dL (6.4-8.2); Troponin I 24.3 ng/L (0.00-60.4)
[2020-10-01 19:36] LABS: Lactic Acid Reflex 4.3 mmol/L (0.4-2.0)
[2020-10-01 20:30] VITALS: BP 151/60; PULSE 70
[2020-10-01] MEDS: SODIUM CHLORIDE 0.9% IV 500 ML 999 ML IV CONT (20:32)
--- NOTE | 2020-10-01 21:00 | ED.WEAKNESS ---
HPI - Weakness General Chief complaint: Weakness Stated complaint: ambulance Time Seen by Provider: 10/01/20 18:33 Source: patient, EMS and RN notes reviewed Mode of arrival: EMS Limitations: no limitations History of Present Illness HPI Narrative: Also nausea, vomiting and loose stools. MD Complaint: generalized weakness and lack of energy Onset (ago): hour(s) (6) Duration: progressively worsening Severity: moderate Severity scale (1-10): 6 Relieving factors: none Exacerbating factors: none Associated symptoms: loss of appetite and nausea/vomiting Related Data Home Medications Medication Instructions Recorded Confirmed furosemide 20 mg PO DAILY 02/27/19 10/01/20 oxybutynin chloride 10 mg PO HS 02/27/19 10/01/20 paroxetine HCl 10 mg PO HS 02/27/19 10/01/20 aspirin [Michael Aspirin] 325 mg PO DAILY 07/04/19 10/01/20 atorvastatin 40 mg PO HS 07/04/19 10/01/20 calcium citrate-vitamin D3 1 tablet PO DAILY 07/04/19 10/01/20 [Calcium Citrate + D] cyanocobalamin (vitamin B-12) 1,000 mcg PO DAILY 07/04/19 10/01/20 [Vitamin B-12] duloxetine 60 mg PO DAILY 07/04/19 10/01/20 garlic extract 600 mg PO ONCE 07/04/19 10/01/20 lisinopril 20 mg PO DAILY 07/04/19 10/01/20 metoprolol succinate 25 mg PO DAILY 07/04/19 10/01/20 oxcarbazepine 900 mg PO BID 07/04/19 10/01/20 clopidogrel 75 mg PO DAILY 10/01/20 10/01/20 magnesium oxide 500 mg PO DAILY 10/01/20 10/01/20 tramadol 50 mg PO HS PRN 10/01/20 10/01/20 Allergies Allergy/AdvReac Type Severity Reaction Status Date / Time adhesive Allergy Intermediate BLISTERS Verified 11/15/18 12:35 ON SKIN diazepam Allergy Unknown Verified 01/27/15 10:38 Review of Systems Review of Systems: All systems reviewed & are unremarkable except as noted in HPI and below Constitutional: Constitutional: Reports as per HPI and Reports no additional constitutional complaints Eyes: Eyes: Reports as per HPI and Reports no additional eye complaints ENT: Reports system reviewed and no additional complaints, except as documented and Reports as per HPI Cardiovascular: Cardiovascular: Reports as per HPI and Reports no additional cardiovascular complaints Respiratory: Respiratory: Reports as per HPI and Reports no additional respiratory complaints Gastrointestinal: Gastrointestinal: Reports as per HPI and Reports no additional gastrointestinal complaints Genitourinary: Genitourinary: Reports no additional female genitourinary complaints and Reports as per HPI Musculoskeletal: Musculoskeletal: Reports no additional musculoskeletal complaints and Reports as per HPI Integumentary/Breasts: Skin/Breast: Reports system reviewed and no additional complaints, except as docu and Reports as per HPI Neurologic: Reports system reviewed and no additional complaints, except as documented and Reports as per HPI Psychiatric: Psychiatric: Reports no additional psychiatric complaints and Reports as per HPI Endocrine: Endocrine: Reports no additional endocrine complaints and Reports as per HPI Hematologic/Lymphatic: Hematologic/Lymphatic: Reports no additional hematologic/lymphatic complaints and Reports as per HPI Allergic/Immunologic: Allergic/Immunologic: Reports no additional allergic/immunologic complaints and Reports as per HPI PMFSH Past Medical History Medical History (Updated 10/01/20 @ 21:39 by Lillian Church MD) COPD (chronic obstructive pulmonary disease) Dyslipidemia GERD (gastroesophageal reflux disease) H/O: CVA (cerebrovascular accident) Surgical History Surgical History H/O arthroscopic knee surgery H/O partial nephrectomy left H/O: hysterectomy Hx of tonsillectomy Hx of ventral hernia repair Lipoma of back Family History Family History Father Family history of malignant neoplasm Family history of coronary artery disease Family history of renal failure Sibling Famil
[2020-10-01] MEDS: POTASSIUM CHLORIDE 20 MEQ TABLET 40 MEQ PO (21:24)
[2020-10-01 21:58] LABS: Basophils Absolute Manual 0.41 K/mm3 (0-0.1); Basophils Percent Manual 2 % (0-1); Eosinophils Absolute Manual 0.41 K/mm3 (0.02-0.5); Eosinophils Percent Manual 2 % (1-6); Lymphocytes Percent Manual 12 % (18-44); Monocytes Absolute Manual 1.04 K/mm3 (0.1-0.90); Monocytes Percent Manual 5 % (3-9); Neutrophils Percent Manual 79 % (46-73); Platelet Estimate Adequate (Adequate); Total Cells Counted 100
[2020-10-01 22:01] LABS: Creatine Kinase 56 U/L (26-192)
[2020-10-01 22:11] LABS: Reflex Lactic Acid Yes or No Add Lactic
[2020-10-01] MEDS: MORPHINE SULFATE (*CRX) 2 MG/ML INJ IV PUSH (22:54)
[2020-10-01 23:19] LABS: Lactic Acid 2.6 mmol/L (0.4-2.0)
[2020-10-01 23:39] VITALS: BP 156/86; PULSE 77; RESP 20; TEMP 36.8; O2SAT 96
[2020-10-02] VITALS (9 sets, daily range): BP systolic 120–148; BP diastolic 46–60; PULSE 68–95; RESP 16–20; TEMP 37–37.9; O2SAT 95–98; BMI 37.7
[2020-10-02] MEDS: OXYBUTYNIN CHLORIDE 5 MG TABLET 10 MG PO ×2 (00:08→21:10)
[2020-10-02] MEDS: SODIUM CHLORIDE 0.9% IV 1,000 ML 125 ML IV CONT (00:11)
--- NOTE | 2020-10-02 00:56 | PC.NURSE ---
Pt presented to ER this evening. Pt stated she felt like she needed to have a BM.Pt went into her BR Vomited a little bit, felt weak. Pt called her daughter & son in law. They put pt back into bed. Pt stated she thenBM had a very lg incontinent. Pt stated when family attempted to get pt out of bed, she passed out.
[2020-10-02] MEDS: ONDANSETRON INJ 4 MG/2 ML VIAL IV PUSH (03:25)
--- NOTE | 2020-10-02 04:59 | PC.NURSE ---
150ml dk tara urine obtained for urinary catheter.
--- NOTE | 2020-10-02 05:19 | PC.NURSE ---
Pt insisted to be put up in a chair. Safety explained. Up with gait belt, assist of two. Needed objects in reach. Dr tom,
[2020-10-02] MEDS: ACETAMINOPHEN 325 MG TABLET 650 MG PO (05:45)
--- NOTE | 2020-10-02 05:58 | PC.NURSE ---
Back into bed, gait belt, assist of two. t did very poorly. Layed back in center of bed. Pt encouraged to sit up in bed, assisted with legs back into bed. Bed alarm on.
[2020-10-02 08:14] LABS: Glucose Point of Care 140 mg/dl (65-105)
[2020-10-02 09:00] LABS: Hematocrit 33.9 % (35.0-42.0); Hemoglobin 10.8 g/dL (11.7-13.8); Mean Corpuscular HGB Conc 31.9 g/dL (32.0-36.0); Mean Corpuscular Hemoglobin 26.3 pg (27.0-31.0); Mean Corpuscular Volume 82.5 fL (78.0-102.0); Mean Platelet Volume 9.4 fl (9.2-11.8); Platelet Count Result 304 K/mm3 (150-420); Red Blood Count 4.11 M/mm3 (4.20-5.40); Red Cell Distribution Width 17.2 % (11.6-14.4); White Blood Count 13.1 K/mm3 (4.8-10.8)
[2020-10-02 09:19] LABS: Alanine Aminotransferase 10 U/L (14-59); Albumin Level 2.8 g/dL (3.4-5.0); Alkaline Phosphatase 77 U/L (46-116); Anion Gap 14 mmol/L (8-16); Aspartate Amino Transferase 12 U/L (15-37); Bilirubin,Total 0.3 mg/dL (0.00-1.00); Blood Urea Nitrogen 29 mg/dL (7-18); Calcium 8.3 mg/dL (8.5-10.1); Carbon Dioxide 22 mmol/L (21-32); Chloride 104 mmol/L (98-108); Estimated CRCL calculation 29 ml/min; Estimated Glomerular Filt Rate 24; Glucose 129 mg/dL (70-99); Osmolality Calculated 297 mOsm/kg (285-295); Potassium 3.9 mmol/L (3.5-5.1); Sodium 140 mmol/L (136-145); Total Protein 5.9 g/dL (6.4-8.2)
[2020-10-02] MEDS: MAGNESIUM OXIDE 400 MG TABLET PO (09:30)
[2020-10-02] MEDS: CLOPIDOGREL BISULFATE 75 MG TABLET PO (09:30)
[2020-10-02] MEDS: METOPROLOL SUCCINATE EXT REL 25 MG TABCR PO (09:31)
[2020-10-02] MEDS: lisinopriL 20 MG TABLET PO (09:31)
[2020-10-02 09:37] LABS: Lactic Acid Reflex 1.4 mmol/L (0.4-2.0)
[2020-10-02] MEDS: metroNIDAZOLE 500 MG/ISO 100ML 500 MG/100 ML BAG 100 MG IVPB ×2 (11:39→19:40)
--- NOTE | 2020-10-02 11:52 | PM.IMHP ---
H&P: HPI History of Present Illness Date/Time: 10/02/20 11:52 this is a 69-year-old female that presented to emergency department status post abdominal pain and syncopal episode. Patient has a past medical history of COPD dyslipidemia, GERD, and history of CVA. According to patient she was at a picnic with her family yesterday when she started experiencing abdominal cramping she then proceeded to the restroom to have a bowel movement and became dizzy afterwards she asked her family to put her in the bed while in the bed she had a bowel movement that she describes as liquid. Her daughter then attempted to clean her up and put her in a wheelchair patient notes that while being transported to the restroom to get a shower she had a syncopal episode. Per patient had gotten placement for in case she needed to do CPR only thing she remembers afterwards is being on the floor. She was then transported to our ED department. On admission patient is blood pressure 77/48, 99%, 77, 65, 98.4, WBCs 20.9, hemoglobin 15.5, hematocrit 49.2, platelets 476, sodium 138, potassium 3.0, anion gap 18, BUN 19, creatinine 1.89, blood sugar 140, lactic acid 4.3, liver function test within normal limit, CK 56, troponin, Covid negative, chest x-ray unremarkable, CT of the abdomen indicates likely acute or chronic distal colitis which may be infectious or inflammatory, blood culture pending, EKG sinus bradycardia with a heart rate of 59 patient being admitted for sepsis, colitis, [place], hypokalemia and colitis. The patient denies SOB, CP, palpitation, extremity numbness, lightheadedness, dizziness, constipation, chills, or fever. Patient continues to have diarrhea with left-sided abdominal pain she denies any hematemesis melena or hematochezia. Chief Complaint: Nausea vomiting diarrhea, abdominal pain, syncopal episode Review of Systems Review of Systems: A 14 organ system Review of Systems was performed and pertinent positives included in the HPI, otherwise remaining ROS is negative. [facility] Past Medical History Medical History (Updated 10/02/20 @ 13:07 by JENNIFER Weiss) COPD (chronic obstructive pulmonary disease) Dyslipidemia GERD (gastroesophageal reflux disease) H/O: CVA (cerebrovascular accident) Surgical History Surgical History H/O arthroscopic knee surgery H/O partial nephrectomy left H/O: hysterectomy Hx of tonsillectomy Hx of ventral hernia repair Lipoma of back Family History Family History Father Family history of malignant neoplasm Family history of coronary artery disease Family history of renal failure Sibling Family history of kidney stones Family history of diabetes mellitus in first degree relative Family history of coronary artery disease Family history of lupus erythematosus Mother Patient's mother is Acute myocardial infarction Social History Social History Smoking packs per day: 1 Smoking cigarettes per day: 20.0 Smoking status: Current every day smoker Tobacco type: cigarettes Second hand tobacco smoke exposure: Yes Alcohol intake: former Substance use: never Substance use type: does not use Gender identity (if verbalized by the patient): Female Spiritual care concerns: No Meds Home Medications and Allergies Home Medications Medication Instructions Recorded Confirmed Type furosemide 20 mg PO DAILY 02/27/19 10/01/20 History oxybutynin chloride 10 mg PO HS 02/27/19 10/01/20 History paroxetine HCl 10 mg PO HS 02/27/19 10/01/20 History aspirin [Michael Aspirin] 325 mg PO DAILY 07/04/19 10/01/20 History atorvastatin 40 mg PO HS 07/04/19 10/01/20 History calcium citrate-vitamin D3 1 tablet PO DAILY 07/04/19 10/01/20 History [Calcium Citrate + D] cyanocobalamin (vitamin B-12) 1,000 mcg PO DAILY 07/04/19 10/01/20
[2020-10-02] MEDS: HYDROcodone/acetaminophen (*CRX) 7.5-325 MG TABLET 1 TAB PO ×2 (14:20→18:51)
[2020-10-02 15:04] LABS: Occult Blood Positive (Negative)
[2020-10-02 17:31] LABS: Hematocrit 32.1 % (35.0-42.0); Hemoglobin 10.1 g/dL (11.7-13.8)
[2020-10-02] MEDS: PANTOPRAZOLE SODIUM IV 40 MG VIAL IV PUSH (18:11)
[2020-10-02] MEDS: traZODone HCL 50 MG TABLET PO (21:10)
[2020-10-03] VITALS (7 sets, daily range): BP systolic 149–181; BP diastolic 56–71; PULSE 58–95; RESP 14–20; TEMP 36.2–37.6; O2SAT 96–98
[2020-10-03] MEDS: metroNIDAZOLE 500 MG/ISO 100ML 500 MG/100 ML BAG 100 MG IVPB ×3 (02:05→18:10)
--- NOTE | 2020-10-03 02:11 | PC.NURSE ---
Patient informed development writer that her right leg was itching around the stat lock for the catheter. No redness noted. Project Assistant removed stat lock. explosive ordnance disposal manager notified.
[2020-10-03] MEDS: HYDROcodone/acetaminophen (*CRX) 7.5-325 MG TABLET 1 TAB PO ×4 (02:48→20:56)
--- NOTE | 2020-10-03 03:20 | PC.NURSE ---
Patient asked for a razor and washcloth. Stated she was unable to sleep because her leg hairs were bothering her. Given supplies and patient able to sit up in bed and bring legs up and shave own legs. Patient unable to complete own iveth-care.
[2020-10-03 05:20] LABS: Hematocrit 29.4 % (35.0-42.0); Hemoglobin 9.3 g/dL (11.7-13.8); Mean Corpuscular HGB Conc 31.6 g/dL (32.0-36.0); Mean Corpuscular Hemoglobin 26.3 pg (27.0-31.0); Mean Corpuscular Volume 83.1 fL (78.0-102.0); Mean Platelet Volume 9.5 fl (9.2-11.8); Platelet Count Result 247 K/mm3 (150-420); Red Blood Count 3.54 M/mm3 (4.20-5.40); Red Cell Distribution Width 17.4 % (11.6-14.4); White Blood Count 8.4 K/mm3 (4.8-10.8)
[2020-10-03 05:36] LABS: Alanine Aminotransferase 21 U/L (14-59); Albumin Level 2.6 g/dL (3.4-5.0); Alkaline Phosphatase 66 U/L (46-116); Anion Gap 13 mmol/L (8-16); Aspartate Amino Transferase 20 U/L (15-37); Bilirubin,Total 0.2 mg/dL (0.00-1.00); Blood Urea Nitrogen 20 mg/dL (7-18); Calcium 8.2 mg/dL (8.5-10.1); Carbon Dioxide 23 mmol/L (21-32); Chloride 106 mmol/L (98-108); Estimated CRCL calculation 43 ml/min; Estimated Glomerular Filt Rate 40; Glucose 110 mg/dL (70-99); Magnesium 1.3 mg/dL (1.8-2.4); Osmolality Calculated 297 mOsm/kg (285-295); Potassium 3.3 mmol/L (3.5-5.1); Sodium 142 mmol/L (136-145); Total Protein 5.8 g/dL (6.4-8.2)
[2020-10-03] MEDS: PANTOPRAZOLE SODIUM IV 40 MG VIAL IV PUSH ×2 (08:34→17:26)
[2020-10-03] MEDS: lisinopriL 20 MG TABLET PO (08:34)
[2020-10-03] MEDS: MAGNESIUM OXIDE 400 MG TABLET PO (08:34)
[2020-10-03] MEDS: CLOPIDOGREL BISULFATE 75 MG TABLET PO (08:35)
[2020-10-03] MEDS: METOPROLOL SUCCINATE EXT REL 25 MG TABCR PO (08:35)
[2020-10-03] MEDS: SODIUM CHLORIDE 0.9% IV 1,000 ML 125 ML IV CONT ×2 (08:37→09:00)
--- NOTE | 2020-10-03 09:41 | P.PNIM_ITS ---
Progress Note: A&P Assessment and Plan (1) Sepsis: Qualifiers: Sepsis acute organ dysfunction status: without acute organ dysfunction Sepsis type: sepsis due to unspecified organism Qualified Code(s): A41.9 - Sepsis, unspecified organism <Mulugeta Rutherford FIRE CONTROL OFFICER-C - Last Filed: 10/03/20 12:24> Code(s): A41.9 - Sepsis, unspecified organism <Mulugeta Rutherford, FIRE CONTROL OFFICER-C - Last Filed: 10/03/20 12:24> Status: Acute <Mulugeta Rutherford, FIRE CONTROL OFFICER-C - Last Filed: 10/03/20 12:24> Assessment and Plan: * As evidence of febrile, hypotensive, leukocytosis and elevated lactic acid * Possibly secondary to colitis * Continue IV hydration * Patient received Norepinephrine in the ED * Continue Zosyn and Flagyl * WBCs 20.9>13.1 * Lactic acid 4.3>2.6>1.4 * Imaging indicate colitis * Hemoglobin on admission 15.5 [id number] will monitor for hemorrhage every 6 hours H&H 10/13/2020 SBC 8.4, H/H 9.3/29.4, Afebrile, continue Zosyn and Flagyl, VSS <Mulugeta Rutherford, FIRE CONTROL OFFICER-C - Last Filed: 10/03/20 12:24> (2) Dehydration: Code(s): E86.0 - Dehydration <Mulugeta Rutherford, FIRE CONTROL OFFICER-C - Last Filed: 10/03/20 12:24> Status: Acute <Mulugeta Rutherford FIRE CONTROL OFFICER-C - Last Filed: 10/03/20 12:24> Assessment and Plan: * Continue IV hydration 10/13/2020 overall I&O positive 3600 ml, taking PO fluids well. <Mulugeta Rutherford, FIRE CONTROL OFFICER-C - Last Filed: 10/03/20 12:24> (3) Colitis: Code(s): K52.9 - Noninfective gastroenteritis and colitis, unspecified <Mulugeta Rutherford, FIRE CONTROL OFFICER-C - Last Filed: 10/03/20 12:24> Status: Acute <Mulugeta Rutherford, FIRE CONTROL OFFICER-C - Last Filed: 10/03/20 12:24> Assessment and Plan: * Continue Zosyn and Flagyl * WBCs 20.9>13.1 * Lactic acid 4.3>2.6>1.4 * Imaging indicate colitis * Stool panel pending 10/13/2020 still has LLQ and RLQ pain and tenderness, continue Ab, WBC 8.4 <Mulugeta Cabreramaria g, FIRE CONTROL OFFICER-C - Last Filed: 10/03/20 12:24> (4) Dyslipidemia: Code(s): E78.5 - Hyperlipidemia, unspecified <Mulugeta Cabreramaria g FIRE CONTROL OFFICER-C - Last Filed: 10/03/20 12:24> Status: Acute <Mulugeta Cabreramaria g, FIRE CONTROL OFFICER-C - Last Filed: 10/03/20 12:24> Assessment and Plan: * Continue statins <Mulugeta Cabreramaria g FIRE CONTROL OFFICER-C - Last Filed: 10/03/20 12:24> (5) GERD (gastroesophageal reflux disease): Code(s): K21.9 - Gastro-esophageal reflux disease without esophagitis <Uzair HernandezSiddharth Rutherford FIRE CONTROL OFFICER-C - Last Filed: 10/03/20 12:24> Status: Acute <Mulugeta Cabreramaria g FIRE CONTROL OFFICER-C - Last Filed: 10/03/20 12:24> Assessment and Plan: * Continue pantoprazole <Mulugeta Cabreramaria g FIRE CONTROL OFFICER-C - Last Filed: 12:24> (6) COPD (chronic obstructive pulmonary disease): Code(s): J44.9 - Chronic obstructive pulmonary disease, unspecified <Mulugeta Rousseau Sangeeta FIRE CONTROL OFFICER-C - Last Filed: 10/03/20 12:24> Status: Acute <Mulugeta Cabreramaria g FIRE CONTROL OFFICER-C - Last Filed: 10/03/20 12:24> Assessment and Plan: * Stable * Started as needed albuterol <Mulugeta HernandezSiddharth Rutherford FIRE CONTROL OFFICER-C - Last Filed: 10/03/20 12:24> (7) H/O: CVA (cerebrovascular accident): Code(s): Z86.73 - Personal history of transient ischemic attack (TIA), and cerebral infarction without residual deficits <Mulugeta HernandezSiddharth Rutherford FIRE CONTROL OFFICER-C - Last Filed: 10/03/20 12:24> Status: Acute <AMAN Esquivel - Last Filed: 10/03/20 12:24> Assessment and Plan: * Patient sees a neurologist at [facility] she will need to follow-up with <AMAN Esquivel - Last Filed: 10/03/20 12:24> (8) Syncopal episodes: Code(s): R55 - Syncop
--- NOTE | 2020-10-03 09:41 | PM.IMPN ---
Progress Note: A&P Assessment and Plan (1) Sepsis: Qualifiers: Sepsis acute organ dysfunction status: without acute organ dysfunction Sepsis type: sepsis due to unspecified organism Qualified Code(s): A41.9 - Sepsis, unspecified organism <Mulugeta Rutherford TOOLROOM CLERK-C - Last Filed: 10/03/20 12:24> Code(s): A41.9 - Sepsis, unspecified organism <Mulugeta Rutherford TOOLROOM CLERK-C - Last Filed: 10/03/20 12:24> Status: Acute <Mulugeta Rutherford, TOOLROOM CLERK-C - Last Filed: 10/03/20 12:24> Assessment and Plan: As evidence of febrile, hypotensive, leukocytosis and elevated lactic acid Possibly secondary to colitis Continue IV hydration Patient received Norepinephrine in the ED Continue Zosyn and Flagyl WBCs 20.9>13.1 Lactic acid 4.3>2.6>1.4 Imaging indicate colitis Hemoglobin on admission 15.5 [id number] will monitor for hemorrhage every 6 hours H&H 10/13/2020 SBC 8.4, H/H 9.3/29.4, Afebrile, continue Zosyn and Flagyl, VSS <Mulugeta Rutherford, TOOLROOM CLERK-C - Last Filed: 10/03/20 12:24> (2) Dehydration: Code(s): E86.0 - Dehydration <Mulugeta Rutherford, TOOLROOM CLERK-C - Last Filed: 10/03/20 12:24> Status: Acute <Mulugeta Rutherford TOOLROOM CLERK-C - Last Filed: 10/03/20 12:24> Assessment and Plan: Continue IV hydration 10/13/2020 overall I&O positive 3600 ml, taking PO fluids well. <Mulugeta Rutherford, TOOLROOM CLERK-C - Last Filed: 10/03/20 12:24> (3) Colitis: Code(s): K52.9 - Noninfective gastroenteritis and colitis, unspecified <Mulugeta Rutherford, TOOLROOM CLERK-C - Last Filed: 10/03/20 12:24> Status: Acute <Mulugeta Rutherford, TOOLROOM CLERK-C - Last Filed: 10/03/20 12:24> Assessment and Plan: Continue Zosyn and Flagyl WBCs 20.9>13.1 Lactic acid 4.3>2.6>1.4 Imaging indicate colitis Stool panel pending 10/13/2020 still has LLQ and RLQ pain and tenderness, continue Ab, WBC 8.4 <Mulugeta Rutherford TOOLROOM CLERK-C - Last Filed: 10/03/20 12:24> (4) Dyslipidemia: Code(s): E78.5 - Hyperlipidemia, unspecified <Mulugeta Rutherford TOOLROOM CLERK-C - Last Filed: 10/03/20 12:24> Status: Acute <Mulugeta Rutherford TOOLROOM CLERK-C - Last Filed: 10/03/20 12:24> Assessment and Plan: Continue statins <Mulugeta Rutherford TOOLROOM CLERK-C - Last Filed: 10/03/20 12:24> (5) GERD (gastroesophageal reflux disease): Code(s): K21.9 - Gastro-esophageal reflux disease without esophagitis <Mulugeta Rutherford TOOLROOM CLERK-C - Last Filed: 10/03/20 12:24> Status: Acute <Mulugeta Rutherford TOOLROOM CLERK-C - Last Filed: 10/03/20 12:24> Assessment and Plan: Continue pantoprazole <Mulugeta Rutherford TOOLROOM CLERK-C - Last Filed: 10/03/20 12:24> (6) COPD (chronic obstructive pulmonary disease): Code(s): J44.9 - Chronic obstructive pulmonary disease, unspecified <Mulugeta Rutherford TOOLROOM CLERK-C - Last Filed: 10/03/20 12:24> Status: Acute <Mulugeta Rutherford TOOLROOM CLERK-C - Last Filed: 10/03/20 12:24> Assessment and Plan: Stable Started as needed albuterol <Mulugeta Rutherford TOOLROOM CLERK-C - Last Filed: 10/03/20 12:24> (7) H/O: CVA (cerebrovascular accident): Code(s): Z86.73 - Personal history of transient ischemic attack (TIA), and cerebral infarction without residual deficits <Mulugeta Rutherford TOOLROOM CLERK-C - Last Filed: 10/03/20 12:24> Status: Acute <Mulugeta Rutherford TOOLROOM CLERK-C - Last Filed: 10/03/20 12:24> Assessment and Plan: Patient sees a neurologist at [facility] she will need to follow-up with <AMAN Esquivel - Last Filed: 10/03/20 12:24> (8) Syncopal episodes: Code(s): R55 - Syncope and collapse <AMAN Esquivel - Last Filed: 10/03/20 12:24> Status: Acute <AMAN Esquivel - Last Filed: 10/03/20 12:24> Assessment and Plan: One-time episode Patient does see a neurologist at [facility] for her history of CVA Possibly secondary to dehydration 10/13/2020 no report of dizziness, syncopal episodes, VSS <Mulugeta Hernandez
[2020-10-03] MEDS: POTASSIUM CHLORIDE 20 MEQ TABLET 40 MEQ PO (11:01)
[2020-10-03] MEDS: MAGNESIUM SULF 4 GM/WATER100ML 4 GM/100 ML BAG IVPB (11:02)
[2020-10-03 16:32] LABS: Glucose Point of Care 128 mg/dl (65-105)
[2020-10-03] MEDS: OXYBUTYNIN CHLORIDE 5 MG TABLET 10 MG PO (20:57)
[2020-10-04] VITALS: BP 160/58; PULSE 73; PULSE 75; RESP 20; TEMP 36.9; O2SAT 97
[2020-10-04] MEDS: metroNIDAZOLE 500 MG/ISO 100ML 500 MG/100 ML BAG 100 MG IVPB (02:28)
[2020-10-04 04:00] VITALS: PULSE 88
[2020-10-04 05:13] LABS: Hematocrit 30.1 % (35.0-42.0); Hemoglobin 9.6 g/dL (11.7-13.8); Mean Corpuscular HGB Conc 31.9 g/dL (32.0-36.0); Mean Corpuscular Volume 84.8 fL (78.0-102.0); Mean Platelet Volume 8.8 fl (9.2-11.8); Platelet Count Result 255 K/mm3 (150-420); Red Blood Count 3.55 M/mm3 (4.20-5.40); Red Cell Distribution Width 17.6 % (11.6-14.4); White Blood Count 8.5 K/mm3 (4.8-10.8)
[2020-10-04 05:25] LABS: Anion Gap 9 mmol/L (8-16); Blood Urea Nitrogen 10 mg/dL (7-18); Calcium 8.6 mg/dL (8.5-10.1); Carbon Dioxide 28 mmol/L (21-32); Chloride 107 mmol/L (98-108); Estimated CRCL calculation 57 ml/min; Estimated Glomerular Filt Rate 55; Glucose 105 mg/dL (70-99); Magnesium 1.6 mg/dL (1.8-2.4); Osmolality Calculated 297 mOsm/kg (285-295); Potassium 3.8 mmol/L (3.5-5.1); Sodium 144 mmol/L (136-145)
[2020-10-04 08:00] VITALS: BP 173/69; PULSE 77; RESP 16; TEMP 37.1; O2SAT 98
[2020-10-04] MEDS: PANTOPRAZOLE SODIUM IV 40 MG VIAL IV PUSH (08:46)
[2020-10-04] MEDS: MAGNESIUM SULF 2 GM/WATER 50ML 2 GM/50 ML BAG IVPB (08:46)
[2020-10-04 08:54] VITALS: PULSE 90
[2020-10-04] MEDS: METOPROLOL SUCCINATE EXT REL 25 MG TABCR PO (08:54)
[2020-10-04] MEDS: lisinopriL 20 MG TABLET PO (08:55)
[2020-10-04] MEDS: CLOPIDOGREL BISULFATE 75 MG TABLET PO (08:55)
[2020-10-04] MEDS: MAGNESIUM OXIDE 400 MG TABLET PO (08:55)
--- NOTE | 2020-10-04 10:47 | P.DS_ITS ---
DS: Admitting Diagnosis Admitting Diagnosis Colitis, [place], Hypokalemia, Syncope <Mulugeta CabreraMACI cummins-C - Last Filed: 10/04/20 10:58> DS: Discharge Diagnosis Discharge Diagnosis (1) Sepsis: Qualifiers: Sepsis acute organ dysfunction status: without acute organ dysfunction Sepsis type: sepsis due to unspecified organism Qualified Code(s): A41.9 - Sepsis, unspecified organism <Mulugeta CabreraMACI cummins-C - Last Filed: 10/04/20 10:58> Code(s): A41.9 - Sepsis, unspecified organism <Mulugeta CabreraMACI cummins-C - Last Filed: 10/04/20 10:58> Status: Acute <Mulugeta RutherfordMACI-C - Last Filed: 10/04/20 10:58> Assessment and Plan: * As evidence of febrile, hypotensive, leukocytosis and elevated lactic acid * Possibly secondary to colitis * Continue IV hydration * Patient received Norepinephrine in the ED * Continue Zosyn and Flagyl * WBCs 20.9>13.1 * Lactic acid 4.3>2.6>1.4 * Imaging indicate colitis * Hemoglobin on admission 15.5 [id number] will monitor for hemorrhage every 6 hours H&H 10/03/2020 WBC 8.4, H/H 9.3/29.4, Afebrile, continue Zosyn and Flagyl, VSS 10/04/2020 WBC 8.5, H/H 9.6/30.1, Afebrile, will DC home with Augmentin and Flagyl, VSS <Mulugeta HernandezSiddharth RickMACI cummins-C - Last Filed: 10/04/20 10:58> (2) Dehydration: Code(s): E86.0 - Dehydration <Mulugeta HernandezSiddharth Rutherford APN-C - Last Filed: 10/04/20 10:58> Status: Acute <Mulugeta CabreraMACI cummins-C - Last Filed: 10/04/20 10:58> Assessment and Plan: * Continue IV hydration 10/03/2020 overall I&O positive 3600 ml, taking PO fluids well. 10/04/2020 Taking PO fluids well, no abdominal issues <Mulugeta HernandezSiddharth Rutherford APN-C - Last Filed: 10/04/20 10:58> (3) Colitis: Code(s): K52.9 - Noninfective gastroenteritis and colitis, unspecified <Mulugeta Rutherford, GRADALL OPERATOR-C - Last Filed: 10/04/20 10:58> Status: Acute <Mulugeta Rutherford GRADALL OPERATOR-C - Last Filed: 10/04/20 10:58> Assessment and Plan: * Continue Zosyn and Flagyl * WBCs 20.9>13.1 * Lactic acid 4.3>2.6>1.4 * Imaging indicate colitis * Stool panel pending 10/03/2020 still has LLQ and RLQ pain and tenderness, continue Ab, WBC 8.4 10/04/2020 no abdominal pain today, tolerating food and fluids well. <Mulugeta Rutherford, GRADALL OPERATOR-C - Last Filed: 10/04/20 10:58> (4) Dyslipidemia: Code(s): E78.5 - Hyperlipidemia, unspecified <Mulugeta Rutherford, GRADALL OPERATOR-C - Last Filed: 10/04/20 10:58> Status: Acute <Mulugeta Rutherford, GRADALL OPERATOR-C - Last Filed: 10/04/20 10:58> Assessment and Plan: * Continue statins <Mulugeta Rutherford, GRADALL OPERATOR-C - Last Filed: 10/04/20 10:58> (5) GERD (gastroesophageal reflux disease): Code(s): K21.9 - Gastro-esophageal reflux disease without esophagitis <Mulugeta Rutherford, GRADALL OPERATOR-C - Last Filed: 10/04/20 10:58> Status: Acute <Mulugeta Rutherford, GRADALL OPERATOR-C - Last Filed: 10/04/20 10:58> Assessment and Plan: * Continue pantoprazole <Mulugeta Rutherford, GRADALL OPERATOR-C - Last Filed: 10/04/20 10:58> (6) COPD (chronic obstructive pulmonary disease): Code(s): J44.9 - Chronic obstructive pulmonary disease, unspecified <Mulugeta Rutherford, GRADALL OPERATOR-C - Last Filed: 10/04/20 10:58> Status: Acute <Mulugeta Rutherford, GRADALL OPERATOR-C - Last Filed: 10/04/20 10:58> Assessment and Plan: * Stable * Started as needed albuterol <Mulugeta Rutherford APN-Cruzito - Last Filed: 10/04/20 10:58> (7) H/O: CVA (cerebrovascular accident): Code(s): Z86.73 - Personal history of transient ischemic attack (TIA), and cerebral infarction without residual deficits <Ronnie
--- NOTE | 2020-10-04 10:47 | PM.DS ---
DS: Admitting Diagnosis Admitting Diagnosis Colitis, [place], Hypokalemia, Syncope <Mulugeta HernandezSiddharth Rutherford APN-C - Last Filed: 10/04/20 10:58> DS: Discharge Diagnosis Discharge Diagnosis (1) Sepsis: Qualifiers: Sepsis acute organ dysfunction status: without acute organ dysfunction Sepsis type: sepsis due to unspecified organism Qualified Code(s): A41.9 - Sepsis, unspecified organism <Mulugeta HernandezSiddharth Rutherford APN-C - Last Filed: 10/04/20 10:58> Code(s): A41.9 - Sepsis, unspecified organism <Mulugeta HernandezSiddharth Rutherford APN-C - Last Filed: 10/04/20 10:58> Status: Acute <Mulugeta HernandezSiddharth Rutherford APN-C - Last Filed: 10/04/20 10:58> Assessment and Plan: As evidence of febrile, hypotensive, leukocytosis and elevated lactic acid Possibly secondary to colitis Continue IV hydration Patient received Norepinephrine in the ED Continue Zosyn and Flagyl WBCs 20.9>13.1 Lactic acid 4.3>2.6>1.4 Imaging indicate colitis Hemoglobin on admission 15.5 [id number] will monitor for hemorrhage every 6 hours H&H 10/03/2020 WBC 8.4, H/H 9.3/29.4, Afebrile, continue Zosyn and Flagyl, VSS 10/04/2020 WBC 8.5, H/H 9.6/30.1, Afebrile, will DC home with Augmentin and Flagyl, VSS <Mulugeta HernandezSiddharth Rutherford APN-C - Last Filed: 10/04/20 10:58> (2) Dehydration: Code(s): E86.0 - Dehydration <Mulugeta HernandezSiddharth Rutherford APN-C - Last Filed: 10/04/20 10:58> Status: Acute <Mulugeta HernandezSiddharth Rutherford APN-C - Last Filed: 10/04/20 10:58> Assessment and Plan: Continue IV hydration 10/03/2020 overall I&O positive 3600 ml, taking PO fluids well. 10/04/2020 Taking PO fluids well, no abdominal issues <Mulugeta MarySiddharth Rutherford APN-C - Last Filed: 10/04/20 10:58> (3) Colitis: Code(s): K52.9 - Noninfective gastroenteritis and colitis, unspecified <Mulugeta Rutherford PRODUCTION CLERK-C - Last Filed: 10/04/20 10:58> Status: Acute <Mulugeta Rutherford PRODUCTION CLERK-C - Last Filed: 10/04/20 10:58> Assessment and Plan: Continue Zosyn and Flagyl WBCs 20.9>13.1 Lactic acid 4.3>2.6>1.4 Imaging indicate colitis Stool panel pending 10/03/2020 still has LLQ and RLQ pain and tenderness, continue Ab, WBC 8.4 10/04/2020 no abdominal pain today, tolerating food and fluids well. <Mulugeta Rutherford PRODUCTION CLERK-C - Last Filed: 10/04/20 10:58> (4) Dyslipidemia: Code(s): E78.5 - Hyperlipidemia, unspecified <Mulugeta Rutherford PRODUCTION CLERK-C - Last Filed: 10/04/20 10:58> Status: Acute <Mulugeta Rutherford PRODUCTION CLERK-C - Last Filed: 10/04/20 10:58> Assessment and Plan: Continue statins <Mulugeta Rutherford PRODUCTION CLERK-C - Last Filed: 10/04/20 10:58> (5) GERD (gastroesophageal reflux disease): Code(s): K21.9 - Gastro-esophageal reflux disease without esophagitis <Mulugeta Rutherford PRODUCTION CLERK-C - Last Filed: 10/04/20 10:58> Status: Acute <Mulugeta Rutherford PRODUCTION CLERK-C - Last Filed: 10/04/20 10:58> Assessment and Plan: Continue pantoprazole <Mulugeta Rutherford PRODUCTION CLERK-C - Last Filed: 10/04/20 10:58> (6) COPD (chronic obstructive pulmonary disease): Code(s): J44.9 - Chronic obstructive pulmonary disease, unspecified <Mulugeta Rutherford PRODUCTION CLERK-C - Last Filed: 10/04/20 10:58> Status: Acute <Mulugeta Rutherford PRODUCTION CLERK-C - Last Filed: 10/04/20 10:58> Assessment and Plan: Stable Started as needed albuterol <Mulugeta Hernandez. Vogt, PRODUCTION CLERK-C - Last Filed: 10/04/20 10:58> (7) H/O: CVA (cerebrovascular accident): Code(s): Z86.73 - Personal history of transient ischemic attack (TIA), and cerebral infarction without residual deficits <AMAN Esquivel - Last Filed: 10/04/20 10:58> Status: Acute <AMAN Esquivel - Last Filed: 10/04/20 10:58> Assessment and Plan: Patient sees a neurologist at [facility] she will need to follow-up with <AMAN Esquivel - Last Filed: 10/04/20 10:58> (8) Syncopal episodes: Code(s): R55 - Syncope and collapse <Mulugeta Hernandez
--- NOTE | 2020-10-04 11:39 | PC.NURSE ---
Pt discharged home instable condition. Discharge instructions given to pt. Pt verbalized understanding. Clothing and personal items returned. RN assisted pt to family car via .
[2020-10-12 11:54] LABS: Glucose Point of Care 161 mg/dl (65-105)
== END 2020-10-04 11:25 | disposition home or self-care (01) | DRG 872 ==
LOC: CHSED 18:50 → CHS2ND 21:39
PROVIDERS: Nurse Practitioner; Nurse Practitioner Family; Admitting Provider Emergency Medicine; Emergency Provider Emergency Medicine; PCP Family Medicine; Visit Provider Emergency Medicine
DX: A41.9 Sepsis, unspecified organism (principal); N17.9 Acute kidney failure, unspecified; K52.9 Noninfective gastroenteritis and colitis, unspecified; E86.0 Dehydration; E87.6 Hypokalemia; J44.9 Chronic obstructive pulmonary disease, unspecified; E78.5 Hyperlipidemia, unspecified; R55 Syncope and collapse; Z79.82 Long term (current) use of aspirin; K21.9 Gastro-esophageal reflux disease without esophagitis; Z86.73 Personal history of transient ischemic attack (TIA), and cerebral infarction without residual deficits; Z90.710 Acquired absence of both cervix and uterus; Z20.822 Contact with and (suspected) exposure to COVID-19
CPT/HCPCS: 36415; 70450; 71045; 74176; 80048; 80053; 82550; 82948; 83605; 83735; 84484; 85014; 85018; 85025; 85027; 87040; 87045; 87046; 87177; 87209; 87269; 87272; 87324; 87426; 87427; 89055; 93005; 96361; 96365; 96368; 97161; 97530; 99285; A9270; C9113; C9803; J0696; J2270; J2405; J2543; J3475; J7030; J7040; J7060

== ENCOUNTER 2021-08-30 12:32 | Outpatient (CLI) | payer MEDICARE, SELFPAY ==
--- NOTE | ~2021-08-30 | CT_ITS ---
EXAMINATION: CT abdomen pelvis wo con DATE: 08/30/2021 13:04 INDICATION: Microhematuria. Status post partial nephrectomy. TECHNIQUE: Computed tomography (CT) of the abdomen and pelvis was performed without intravenous contr ast. The dose-length product was 561.53 mGy-cm. Automated exposure control and iterative reconstructi on technique were employed. COMPARISON: CT dated 10/01/2020. FINDINGS: Heart size is normal. No significant pleural or pericardial effusion no significant vascula r abnormality. There is atherosclerosis. Status post partial left nephrectomy. The liver, spleen, sanchez creas, adrenal glands and right kidney are unremarkable. No stones or hydronephrosis. Gallbladder is present. Nonobstructive bowel gas pattern. Small fat-containing umbilical hernia. No abnormal pelvic masses or fluid collections. Status post hysterectomy. There is osteoarthritis of the hips. Moderate lumbar spondylosis. No free air or free fluid. IMPRESSION: 1. No acute abdominal abnormality. Reviewed, dictated and finalized at location A.
== END 2021-08-30 12:33 | disposition home or self-care (01) ==
LOC: CHSIMG 12:33
PROVIDERS: PCP Internal Medicine; Visit Provider Internal Medicine
DX: D50.9 Iron deficiency anemia, unspecified (principal); R31.9 Hematuria, unspecified
CPT/HCPCS: 74176

== ENCOUNTER 2021-09-07 11:22 | Outpatient (CLI) | payer MEDICARE, SELFPAY ==
[2021-09-07 11:44] LABS: Immature Reticulocyte Fraction 17.5 % (2.0-16.52); Reticulocyte Hemoglobin Conten 29.4 pg (28.0-35.0); Reticulocyte Percent 1.15 % (0.50-1.50); Reticulocytes Absolute 0.05 M/mm3 (0.02-0.1)
[2021-09-07 12:26] LABS: Basophils Absolute Auto 0.03 K/mm3 (0.00-0.10); Basophils Percent Auto 0.4 % (0.0-1.0); Eosinophils Percent Auto 1.4 % (1.0-6.0); Ferritin 14 ng/mL (8-252); Hematocrit 35.7 % (35.0-42.0); Hemoglobin 11.6 g/dL (11.7-13.8); Immature Granulocyte Absolute 0.03 K/mm3 (0.00-0.00); Immature Granulocyte Percent A 0.4 % (0.0-0.0); Iron 47 ug/dL (50-170); Lymphocytes Absolute Auto 2.02 K/mm3 (1.10-4.50); Lymphocytes Percent Auto 27.8 % (18.0-42.0); Mean Corpuscular HGB Conc 32.5 g/dL (32.0-36.0); Mean Corpuscular Hemoglobin 26.4 pg (27.0-31.0); Mean Corpuscular Volume 81.3 fL (78.0-102.0); Mean Platelet Volume 9.3 fl (9.2-11.8); Monocytes Absolute Auto 0.47 K/mm3 (0.10-0.90); Monocytes Percent Auto 6.5 % (2.0-11.0); Neutrophils Absolute Auto 4.6 K/mm3 (1.7-7.2); Neutrophils Percent Auto 63.5 % (50.0-70.0); Percent Iron Saturation 13 % (12-57); Platelet Count Result 362 K/mm3 (150-420); Red Blood Count 4.39 M/mm3 (4.20-5.40); Red Cell Distribution Width 17.6 % (11.6-14.4); White Blood Count 7.3 K/mm3 (4.8-10.8)
== END 2021-09-07 11:23 | disposition home or self-care (01) ==
LOC: CHSLAB 11:25
PROVIDERS: PCP Internal Medicine; Visit Provider Internal Medicine
DX: D50.9 Iron deficiency anemia, unspecified (principal); R31.9 Hematuria, unspecified
CPT/HCPCS: 36415; 82728; 83540; 83550; 85025; 85046

== ENCOUNTER 2022-01-16 01:16 | Day surgery (SDC) | payer MEDICARE, SELFPAY ==
[2022-01-02 10:47] VITALS: BMI 34.8
[2022-01-16 11:57] VITALS: BP 132/83; PULSE 70; RESP 18; TEMP 36.1; O2SAT 99
--- NOTE | 2022-01-16 12:08 | WPDANESEPPF ---
Anes - Initial Pre Proc Eval Procedure: Operation Date: 01/16/22 13:45 Proposed Procedures p Colonoscopy - Félix Frank MD Date/Time: 01/16/22 12:08 Surgeon: Félix Frank MD Pre Op Diagnosis: lower GI bleed Patient Data Age: 71 Gender: F Height: 1.65 m Weight: 97 kg Last Vital Signs Temp 36.1 C L 01/16/22 11:57 Pulse 70 01/16/22 11:57 Resp 18 01/16/22 11:57 BP 132/83 01/16/22 11:57 Pulse Ox 99 01/16/22 11:57 O2 Del Method Room Air 01/16/22 11:57 Allergies Allergy/AdvReac Type Severity Reaction Status Date / Time adhesive Allergy Intermediate BLISTERS Verified 01/16/22 11:56 ON SKIN diazepam Allergy Unknown Other Verified 01/16/22 11:56 Home Medications Medication Instructions Recorded Confirmed Type furosemide 20 mg tablet 20 mg PO DAILY PRN Edema 02/27/19 01/02/22 History oxybutynin chloride 5 mg tablet 10 mg PO HS 02/27/19 01/02/22 History cyanocobalamin (vitamin B-12) 1,000 mcg PO DAILY 07/04/19 01/02/22 History 1,000 mcg tablet (Vitamin B-12) duloxetine 60 mg capsule,delayed 60 mg PO DAILY 07/04/19 01/02/22 History release sprinkle garlic extract 600 mg tablet 600 mg PO ONCE 07/04/19 01/02/22 History lisinopril 20 mg tablet 20 mg PO DAILY 07/04/19 01/02/22 History metoprolol succinate 25 mg 25 mg PO DAILY 07/04/19 01/02/22 History tablet,extended release 24 hr oxcarbazepine 600 mg tablet 900 mg PO BID 07/04/19 01/02/22 History clopidogrel 75 mg tablet 75 mg PO DAILY 10/01/20 01/02/22 History acetaminophen 500 mg tablet 1,000 mg PO Q6H PRN Pain 01/02/22 01/02/22 History atorvastatin 80 mg tablet 80 mg PO DAILY 01/02/22 01/02/22 History Patient hx anesthesia problems: none Family hx anesthesia problems: none Results Review: All pre-operative results and documents have been reviewed as part of the pre-operative evaluation. [facility] Past Medical History Medical History (Updated 10/02/20 @ 13:07 by JENNIFER Weiss) COPD (chronic obstructive pulmonary disease) Dyslipidemia GERD (gastroesophageal reflux disease) H/O: CVA (cerebrovascular accident) Surgical History Surgical History H/O arthroscopic knee surgery H/O partial nephrectomy left H/O: hysterectomy Hx of tonsillectomy Hx of ventral hernia repair Lipoma of back Family History Family History Father Family history of malignant neoplasm Family history of coronary artery disease Family history of renal failure Sibling Family history of kidney stones Family history of diabetes mellitus in first degree relative Family history of coronary artery disease Family history of lupus erythematosus Mother Patient's mother is Acute myocardial infarction Social History Social History Smoking packs per day: 1 Smoking cigarettes per day: 20.0 Years smoked: 43 Smoking pack-years: 43.00 Smoking status: Current every day smoker Tobacco type: cigarettes Second hand tobacco smoke exposure: Yes Alcohol intake: current Alcohol use details: occasionally Substance use: never Substance use type: does not use Living arrangements: alone Gender identity (if verbalized by the patient): Female Spiritual care concerns: No Anes - Eval Final PreProcedure Day of Procedure 01/16/22 12:08 Patient weight: obese Heart: regular rate and rhythm Lungs: clear to auscultation and normal air movement Airway: Mallampati scale class II Neurological: alert and oriented Last oral intake: >/= 8 hours ASA classification: III Emergent: no Anesthetic plan: proceed Anesthesia type and monitoring: general GIVS Results Review: All pre-operative results and documents have been reviewed as part of the pre-operative evaluation. Informed Consent: The patient's anesthetic p
--- NOTE | 2022-01-16 12:11 | PM.HPGS ---
History of Present Illness History of Present Illness Consent: Risks, benefits, and alternatives have been discussed and questions answered. Patient agrees to proceed with procedure. Chief complaint: lower GI bleed Narrative: Rachel Cook is a 71 year old female with episode of cramping followed by diarrhea with blood, she almost passed out. She is back to her baseline but never had colonoscopy. Review of Systems Constitutional: Constitutional: Denies headache(s) and Denies weakness Eyes: Eyes: Denies blurry vision ENT: Reports Normal hearing present, Denies headache(s) and Denies neck pain Cardiovascular: Cardiovascular: Denies chest pain and Denies dyspnea Respiratory: Respiratory: Denies dyspnea Gastrointestinal: Gastrointestinal: Reports no additional gastrointestinal complaints Genitourinary: Genitourinary: Denies dysuria Musculoskeletal: Musculoskeletal: Denies neck pain Integumentary/Breasts: Skin/Breast: Denies dry skin Neurologic: Reports Normal hearing present, Denies headache(s) and Denies weakness Psychiatric: Psychiatric: Denies anxiety Endocrine: Endocrine: Denies change in body appearance Hematologic/Lymphatic: Hematologic/Lymphatic: Denies easy bleeding Allergic/Immunologic: Allergic/Immunologic: Denies urticaria PMFSH Past Medical History Medical History (Updated 10/02/20 @ 13:07 by BLAIR Weiss-C) COPD (chronic obstructive pulmonary disease) Dyslipidemia GERD (gastroesophageal reflux disease) H/O: CVA (cerebrovascular accident) Surgical History Surgical History H/O arthroscopic knee surgery H/O partial nephrectomy left H/O: hysterectomy Hx of tonsillectomy Hx of ventral hernia repair Lipoma of back Family History Family History Father Family history of malignant neoplasm Family history of coronary artery disease Family history of renal failure Sibling Family history of kidney stones Family history of diabetes mellitus in first degree relative Family history of coronary artery disease Family history of lupus erythematosus Mother Patient's mother is Acute myocardial infarction Social History Social History Smoking packs per day: 1 Smoking cigarettes per day: 20.0 Years smoked: 43 Smoking pack-years: 43.00 Smoking status: Current every day smoker Tobacco type: cigarettes Second hand tobacco smoke exposure: Yes Alcohol intake: current Alcohol use details: occasionally Substance use: never Substance use type: does not use Living arrangements: alone Gender identity (if verbalized by the patient): Female Spiritual care concerns: No Meds Home Medications and Allergies Home Medications Medication Instructions Recorded Confirmed Type furosemide 20 mg tablet 20 mg PO DAILY PRN Edema 02/27/19 01/02/22 History oxybutynin chloride 5 mg tablet 10 mg PO HS 02/27/19 01/02/22 History cyanocobalamin (vitamin B-12) 1,000 mcg PO DAILY 07/04/19 01/02/22 History 1,000 mcg tablet (Vitamin B-12) duloxetine 60 mg capsule,delayed 60 mg PO DAILY 07/04/19 01/02/22 History release sprinkle garlic extract 600 mg tablet 600 mg PO ONCE 07/04/19 01/02/22 History lisinopril 20 mg tablet 20 mg PO DAILY 07/04/19 01/02/22 History metoprolol succinate 25 mg 25 mg PO DAILY 07/04/19 01/02/22 History tablet,extended release 24 hr oxcarbazepine 600 mg tablet 900 mg PO BID 07/04/19 01/02/22 History clopidogrel 75 mg tablet 75 mg PO DAILY 10/01/20 01/02/22 History acetaminophen 500 mg tablet 1,000 mg PO Q6H PRN Pain 01/02/22 01/02/22 History atorvastatin 80 mg tablet 80 mg PO DAILY 01/02/22 01/02/22 History Allergies Allergy/AdvReac Type Severity Reaction Status Date / Time adhesive Allergy Intermediate BLISTERS Verified 01/16/22 11:56 ON SKIN diazepam
[2022-01-16] MEDS: LACTATED RINGERS 1,000 ML 150 ML IV CONT (12:28)
[2022-01-16 14:16] VITALS: BP 91/47; PULSE 55; RESP 19; O2SAT 98
[2022-01-16 14:26] VITALS: BP 113/52; PULSE 57; RESP 20; O2SAT 98
[2022-01-16 14:36] VITALS: BP 137/58; PULSE 52; RESP 21; O2SAT 100
== END 2022-01-16 14:46 | disposition home or self-care (01) ==
PROVIDERS: PCP Internal Medicine; Visit Provider Internal Medicine Gastroenterology
PROC: 0DJD8ZZ Inspection of Lower Intestinal Tract, Via Natural or Artificial Opening Endoscopic (ICD-10-PCS; CPT 45378; principal; 2022-01-16 13:45)
DX: Z12.11 Encounter for screening for malignant neoplasm of colon (principal); D12.3 Benign neoplasm of transverse colon; D12.5 Benign neoplasm of sigmoid colon; D12.8 Benign neoplasm of rectum; K64.8 Other hemorrhoids; K92.1 Melena; Z87.19 Personal history of other diseases of the digestive system; J44.9 Chronic obstructive pulmonary disease, unspecified; E78.5 Hyperlipidemia, unspecified; K21.9 Gastro-esophageal reflux disease without esophagitis; Z86.73 Personal history of transient ischemic attack (TIA), and cerebral infarction without residual deficits; Z79.02 Long term (current) use of antithrombotics/antiplatelets; Z90.5 Acquired absence of kidney; F17.210 Nicotine dependence, cigarettes, uncomplicated; E66.9 Obesity, unspecified; Z68.35 Body mass index [BMI] 35.0-35.9, adult
CPT/HCPCS: 45385; 88305; J2704; J7120

== ENCOUNTER 2022-01-31 22:31 | Emergency (ER) | payer MEDICARE, SELFPAY ==
--- NOTE | ~2022-01-31 | CT_ITS ---
CT head without contrast Indication: Head injury COMPARISON: 10/01/2020 Technique: Serial scans were obtained through the brain without the administration of contrast. Dose reduction technique was used on this scan by utilizing automated exposure control and iterative recon struction technique. The dose-length product (DLP) was 439.50 mGy-cm. Findings: There is no evidence of intracranial hemorrhage, mass lesion, or acute infarct. 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 The v entricles and subarachnoid spaces are dilated, consistent with mild atrophy. Low attenuation regions are seen within the periventricular white matter bilaterally, likely representing changes from chron ic microvascular ischemic disease. There is no evidence of edema, mass effect or midline shift. The visualized paranasal sinuses and mastoid air cells are clear. Impression: No intracranial hemorrhage, mass, or acute infarct. Stable chronic infarcts in the right frontoparietal regions and right occipital lobe. Atrophy and chronic white matter changes, as above. Reviewed, dictated and finalized at location [] [employer]ICATION[employer] PROJECT LEAD Impression: No intracranial hemorrhage, mass, or acute infarct. Stable chronic infarcts in the right frontoparietal regions and right occipital lobe. Atrophy and chronic white matter changes, as above.
--- NOTE | ~2022-01-31 | CT_ITS ---
CT Facial Bones and Cervical Spine Clinical Indication: Injury Technique: Contiguous axial scans were obtained through the facial bones followed by coronal and sagi ttal reconstructions. Contiguous axial [address] images of the cervical spine were obtained and r econstructed in 2D sagittal and coronal planes on the acquisition scanner. Dose reduction technique w as used on this scan by utilizing automated exposure control and iterative reconstruction technique. The dose-length product (DLP) was 439.50 mGy-cm. Findings: CT facial bones: No acute fracture identified. Probable chronic fracture deformity of the left nasal bone. The visualized paranasal sinuses are clear. Retro-orbital soft tissues appear normal. CT cervical spine: No fracture or subluxation. There is reversal of the normal cervical lordosis. The intervertebral disc spaces are preserved. No prevertebral soft tissue swelling. Partially calcified right thyroid lobe nodules noted. Impression: No definite acute fracture in the facial bones. Probable chronic fracture deformity of left nasal bon e. No fracture or subluxation of the cervical spine. Reviewed, dictated and finalized at location [] MOTIVE PRODUCT SPECIALIST Impression: No definite acute fracture in the facial bones. Probable chronic fracture defor mity of left nasal bone. No fracture or subluxation of the cervical spine.
--- NOTE | 2022-01-31 22:50 | ED.FALL ---
HPI - Fall General Chief Complaint: Fall Stated Complaint: ambulance Source: patient and EMS Mode of arrival: EMS Limitations: no limitations History of Present Illness HPI Narrative: This is a 71-year-old female patient is a DNR that had a fall earlier this evening while going to the bathroom the patient uses a walker has a history of CVA and is on blood thinners currently, patient fell hit her head and the base of her [place] causing a hematoma does have some pain in the neck region and the chin and headache with no blurry vision no loss of consciousness no nausea or vomiting no chest pain no shortness of breath does have a contusion on the left forearm. Otherwise moves all her extremities no neurological deficits. MD complaint: fall Onset (ago): hour(s) Fall from: standing Fall witnessed: no Place fall occurred: home Loss of consciousness: none Severity: moderate Related Data Home Medications Medication Instructions Recorded Confirmed furosemide 20 mg tablet 20 mg PO DAILY PRN Edema 02/27/19 01/31/22 oxybutynin chloride 5 mg tablet 10 mg PO HS 02/27/19 01/31/22 cyanocobalamin (vitamin B-12) 1,000 mcg PO DAILY 07/04/19 01/31/22 1,000 mcg tablet (Vitamin B-12) duloxetine 60 mg capsule,delayed 60 mg PO DAILY 07/04/19 01/31/22 release sprinkle garlic extract 600 mg tablet 600 mg PO ONCE 07/04/19 01/31/22 lisinopril 20 mg tablet 20 mg PO DAILY 07/04/19 01/31/22 metoprolol succinate 25 mg 25 mg PO DAILY 07/04/19 01/31/22 tablet,extended release 24 hr oxcarbazepine 600 mg tablet 900 mg PO BID 07/04/19 01/31/22 clopidogrel 75 mg tablet 75 mg PO DAILY 10/01/20 01/31/22 acetaminophen 500 mg tablet 1,000 mg PO Q6H PRN Pain 01/02/22 01/31/22 atorvastatin 80 mg tablet 80 mg PO DAILY 01/02/22 01/31/22 Allergies Allergy/AdvReac Type Severity Reaction Status Date / Time adhesive Allergy Intermediate BLISTERS Verified 01/16/22 11:56 ON SKIN diazepam Allergy Unknown Other Verified 01/16/22 11:56 Review of Systems Review of Systems: All systems reviewed & are unremarkable except as noted in HPI and below PMFSH Past Medical History Medical History (Updated 02/28/22 @ 16:33 by Jay Elder MD) COPD (chronic obstructive pulmonary disease) Dyslipidemia GERD (gastroesophageal reflux disease) H/O: CVA (cerebrovascular accident) Surgical History Surgical History H/O arthroscopic knee surgery H/O partial nephrectomy left H/O: hysterectomy Hx of tonsillectomy Hx of ventral hernia repair Lipoma of back Family History Family History Father Family history of malignant neoplasm Family history of coronary artery disease Family history of renal failure Sibling Family history of kidney stones Family history of diabetes mellitus in first degree relative Family history of coronary artery disease Family history of lupus erythematosus Mother Patient's mother is Acute myocardial infarction Social History Social History Smoking packs per day: 1 Smoking cigarettes per day: 20.0 Years smoked: 43 Smoking pack-years: 43.00 Smoking status: Current every day smoker Tobacco type: cigarettes Second hand tobacco smoke exposure: Yes Alcohol intake: current Alcohol use details: occasionally Substance use: never Substance use type: does not use Gender identity (if verbalized by the patient): Female Spiritual care concerns: No Exam Const: General: healthy appearing Nutritional Appearance: well nourished Orientation/consciousness: patient oriented x3 Limitations: no limitations HENMT: Head: normal to inspection Ears: external ears normal Face/Nose/Sinus: Normal external nose present Mouth: Yes Normal oral and palatal mucosa present Teeth and gingiva: dentition normal Other: Bruising under her c
[2022-01-31 23:00] VITALS: BP 119/61; PULSE 61; RESP 18; TEMP 37; O2SAT 100
--- NOTE | 2022-01-31 23:15 | PC.NURSE ---
Pt resting c daughter/POA in room at side. Ice chips given on arrival and assessment done when this RN received report. Pt is A&O x3, hx reviewed c pt and daughter. Awaitng CT results/report at this time.
[2022-01-31] MEDS: KETOROLAC 30 MG/ML VIAL (*BKC) IM (23:29)
[2022-01-31 23:51] VITALS: BP 141/65; PULSE 65; RESP 10; O2SAT 100
--- NOTE | 2022-02-01 00:39 | PC.NURSE ---
Pt resting, sleeping on her side, VSS, daughter at bedside, awaiting reports from CT scans.
== END 2022-02-01 01:22 | disposition home or self-care (01) ==
PROVIDERS: Emergency Provider Emergency Medicine; PCP Internal Medicine
DX: S00.93XA Contusion of unspecified part of head, initial encounter (principal); W19.XXXA Unspecified fall, initial encounter; J44.9 Chronic obstructive pulmonary disease, unspecified; E78.5 Hyperlipidemia, unspecified; K21.9 Gastro-esophageal reflux disease without esophagitis; Z86.73 Personal history of transient ischemic attack (TIA), and cerebral infarction without residual deficits; F17.210 Nicotine dependence, cigarettes, uncomplicated; Z79.02 Long term (current) use of antithrombotics/antiplatelets
CPT/HCPCS: 70450; 70486; 72125; 96372; 99284; J1885

== ENCOUNTER 2022-02-21 11:35 | Outpatient (NON) | payer MEDICARE, SELFPAY ==
[2022-02-25 06:03] LABS: Oxcarbazepine 37.4 mcg/mL (8.0-35.0)
== END 2022-02-21 11:36 | disposition home or self-care (01) ==
LOC: CHSLAB 11:38
PROVIDERS: Visit Provider Internal Medicine
DX: D64.9 Anemia, unspecified (principal)
CPT/HCPCS: 36415; 80183

== ENCOUNTER 2022-07-18 15:00 | Outpatient (CLI) | payer MEDICARE, SELFPAY ==
--- NOTE | ~2022-07-18 | XR_ITS ---
EXAMINATION: XR hip RT min 2V DATE: 07/18/2022 15:22 INDICATION: Right hip pain. TECHNIQUE: 2 views of right hip were obtained. COMPARISON: Pelvis radiograph 08/19/2014 FINDINGS: Bone alignment is normal. No fracture. There is moderate right hip osteoarthritis. There is a vascular stent in right thigh. IMPRESSION: 1. Moderate right hip osteoarthritis. Reviewed, dictated and finalized at location A.
--- NOTE | ~2022-07-18 | XR_ITS ---
EXAMINATION: XR lumbar spine 2-3V DATE: 07/18/2022 15:22 INDICATION: Low back pain. TECHNIQUE: 3 views of lumbar spine were obtained. COMPARISON: Lumbar spine radiographs 12/27/2017 FINDINGS: There is 5 degrees dextrocurvature of thoracolumbar spine. There is 4 mm retrolisthesis of L2 on L3 and L3 on L4. Vertebral body heights are normal. There is mildly decreased disc height at L1 -L2 and moderately decreased disc height at L2-L3, L3-L4, L4-L5, and L5-S1. There is multilevel sever e facet joint osteoarthritis. IMPRESSION: 1. Moderate lumbar spondylosis. Reviewed, dictated and finalized at location A.
== END 2022-07-18 15:01 | disposition home or self-care (01) ==
LOC: CHSIMG 15:05
PROVIDERS: PCP Internal Medicine; Visit Provider Nurse Practitioner Family
DX: M54.50 Low back pain, unspecified (principal); M25.551 Pain in right hip; M43.06 Spondylolysis, lumbar region; M16.11 Unilateral primary osteoarthritis, right hip
CPT/HCPCS: 72100; 73502

== ENCOUNTER 2022-07-22 13:53 | Outpatient (RCR) | payer MEDICARE, SELFPAY ==
--- NOTE | 2022-07-22 14:52 | OPREHPOC ---
Outpatient Therapy Plan of Care This is a Multidisciplinary Plan of Care that may contain components documented by all disciplines (PT, OT, and ST.) PT Problem 1 PT Problem #1 Knowledge Deficit PT Goal 1 Goal Patient to demonstrate independence with HEP Target Visit 12 PT Problem 2 PT Problem #2 Pain PT Goal 1 Goal 1. Patient to report highest pain at 2/10 2. Patient to report no sleep disturbance due to pain Target Visit 12 PT Problem 3 PT Problem #3 Impaired Strength PT Goal 1 Goal Patient to demonstrate 4+/5 strength of B LE to improve ability to ambulate prolonged periods Target Visit 12 PT Problem 4 PT Problem #4 Impaired Functional Mobil PT Goal 1 Goal 1. Patient to demonstrate mild restriction of R piriformis and report ability to sit for >30 minutes with no increase in pain 2. Patient to report ability to stand for >30 minutes of time with no increase in pain Target Visit 12
--- NOTE | 2022-07-22 14:53 | PTOPEVAL1 ---
Assessment and note entered by Carly Ortega DPT Evaluation Information Diagnosis low back pain, R hip pain Onset 07/16/22 Subjective Information Patient reports she woke up one morning with R sided low back pain radiates to the R leg with pain. She reports she has been using a cane and walker and reports she was using one prior to onset of pain due to balance. She reports she has difficulty with walking, sitting for long periods time, and difficulty sleeping. 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 Reported Pain Level Pain Score 6,9: Self Report Assessment PT Clinical Summary Patient is a 71 year old female who presents to PT with R lower back and leg pain. She demonstrates decreased R LE strength, decreased flexibility of R piriformis and impaired gait mechanics limiting her ability to sit for long periods of time, sleep without disturbance and ambulate prolonged distances. She would benefit from skilled PT to address impairments and return to PLOF. Plan of Care Interventions Electrical Stimulation,Gait Training,Hot Pack/Cold Pack,Manual Therapy,Neuro Re-education,Patient/ Caregiver Educati,Therapeutic Activities, Therapeutic Exercise PT Services Indicated Yes Treatment Frequency and 2x weekly for 12 visits Duration These treatments will address the objective and functional deficits as defined above. The patient will be advanced safely and appropriately in order for the patient to progress towards his/her prior level of function. Additional exercises will be introduced and as well as a comprehensive home exercise program upon discharge, if needed, ?to ensure carryover of functional gains achieved in the clinic. This treatment plan has been reviewed and agreement upon by the patient.
--- NOTE | 2022-08-21 14:09 | PTOPPROG ---
Assessment and note entered by JT File, PT Evaluation Information Assessment Status Progress Diagnosis low back pain, R hip pain Onset 07/16/22 Subjective Information patient reports she feels alright today. she reports she does have pain still in the lower back , and she is running late today. Assessment PT Clinical Summary mrs. alaniz presents to skilled PT for her 10th skilled therapy visit. today, she presents with moderate pain still in the lower back and R LE. however, she displays improved strength and independence with HEP. she would benefit from continued skilled PT to achieve remainded of goals , and progress towards return to full prior level functional activity performance/quality of life. Plan of Care Interventions Electrical Stimulation,Gait Training,Hot Pack/Cold Pack,Manual Therapy,Neuro Re-education,Patient/ Caregiver Educati,Therapeutic Activities, Therapeutic Exercise PT Services Indicated Yes Treatment Frequency and continue skilled PT for 2 more visits per her Duration initial POC These treatments will address the objective and functional deficits as defined above. The patient will be advanced safely and appropriately in order for the patient to progress towards his/her prior level of function. Additional exercises will be introduced and as well as a comprehensive home exercise program upon discharge, if needed, ?to ensure carryover of functional gains achieved in the clinic. This treatment plan has been reviewed and agreement upon by the patient.
--- NOTE | 2022-08-21 14:09 | OPREHPOC ---
Outpatient Therapy Plan of Care This is a Multidisciplinary Plan of Care that may contain components documented by all disciplines (PT, OT, and ST.) PT Problem 1 PT Problem #1 Knowledge Deficit PT Goal 1 Goal Patient to demonstrate independence with HEP Target Visit 12 Progress Met PT Problem 2 PT Problem #2 Pain PT Goal 1 Goal 1. Patient to report highest pain at 2/10 2. Patient to report no sleep disturbance due to pain Target Visit 12 PT Problem 3 PT Problem #3 Impaired Strength PT Goal 1 Goal Patient to demonstrate 4+/5 strength of B LE to improve ability to ambulate prolonged periods Target Visit 12 Progress Met PT Problem 4 PT Problem #4 Impaired Functional Mobil PT Goal 1 Goal 1. Patient to demonstrate mild restriction of R piriformis and report ability to sit for >30 minutes with no increase in pain 2. Patient to report ability to stand for >30 minutes of time with no increase in pain Target Visit 12 Progress Partially Met
--- NOTE | 2022-08-28 14:25 | PTOPDC ---
Assessment and note entered by Lashaun Golden, PT Evaluation Information Assessment Status Discharge Diagnosis LBP, R hip pain Onset 07/16/22 Subjective Information Rachel reports that her low back and right hip pain has improved. She feels she is not limited with daily activities due to her hip and back and she is ready for discharge. She did have an onset of left knee pain on 08/27/22 for unknown reasons. She states she woke up with the pain. She was diagnosed with bone on bone deformity in the left knee several years ago. Reported Pain Level Pain Score 0: Self Report Assessment PT Clinical Summary Rachel Cook has completed 12 skilled PT visits for low back and right hip pain. She reports her right hip and low back pain have resolved and she is not limited with daily activities. She objectively demonstrates improved ROM, improved strength, and improved functional abilities. She does continue to have deficits in strength, gait, and balance however, she is functioning at baseline and has resolved pain so she will be discharged to an independent [facility]. Plan of Care PT Services Indicated No
== END 2022-08-28 16:08 | disposition home or self-care (01) ==
LOC: CHSPT 13:53
PROVIDERS: PCP Internal Medicine; Visit Provider Nurse Practitioner Family
DX: M54.50 Low back pain, unspecified (principal)
CPT/HCPCS: 97110; 97140; 97161; 97530; 97750

== ENCOUNTER 2022-12-12 11:49 | Outpatient (CLI) | payer MEDICARE, SELFPAY ==
--- NOTE | ~2022-12-12 | DEXA_ITS ---
Bone Density Report Name: TANESHA ANGELA Age: 72 Sex: Female Ethnicity: White Date of : 1950 Indication: postmenopausal; screening for osteoporosis; height loss; prior fracture; cancer; seizure disorder; end stage renal disease; hysterectomy; Referring Provider: Mitch James Study: Bone densitometry was performed. Exam Date: December 12, 2022 Accession number: [id number] Bone Density: Region BMD T-score Z-score Classification AP Spine(L1-L4) 1.200 1.4 3.6 Normal Femoral Neck (Left) 0.739 -1.0 0.9 Normal Total Hip (Left) 0.933 -0.1 1.5 Normal Femoral Neck (Right) 0.776 -0.7 1.2 Normal Total Hip (Right) 0.958 0.1 1.7 Normal Femoral Neck Mean 0.758 -0.8 1.0 Normal Total Hip Mean 0.945 0.0 1.6 Normal World Health Organization criteria for BMD impression classify patients as: Normal (T-score at or above -1.0), Osteopenia (T-score between -1.0 and -2.5), or Osteoporosis (T-score at or below -2.5). 10-year Fracture Risk: FRAX not reported because: All T-scores for Spine Total, Hip Total, Femoral Neck at or above -1.0 Clinical Information Provided by Patient: Has had a low trauma fracture Smokes Has the following medical conditions: Any Seizure Disorders, Cancer, End stage renal disease, Hysterectomy Patient maximum height was 66 Menopause Age: 36 No regular weight bearing exercise Does not regularly consume dairy products Drinks caffeinated beverages Onset of menses at age 14 Number of children 3 Impression: The patient has normal bone mass. The patient has risk factors, including: smoking, previous fracture. Discussion: BONE DENSITY IS ABOVE THE MINIMUM DESIRABLE LEVEL AT ALL SKELETAL SITES TESTED. This patient?s bone mineral density is above the minimum desirable level (T-score -1.0 or better) at all sites measured. The patient should follow a healthful lifestyle (good nutrition with adequate calcium and vitamin D, and appropriate weight-bearing exercise). Follow-Up: Consider repeating this study in 5 years or sooner if there is some new clinical indication. Reported by: Dr. Jethro Carson on 12/12/2022 12:34:00 PM. Reviewed, dictated and finalized at location ASiddharth CHICAS
--- NOTE | ~2022-12-12 | MM_ITS ---
EXAMINATION: MM screening lisa BI w roxanna HISTORY: Screening mammogram TECHNIQUE: Craniocaudal and mediolateral oblique 3-D tomosynthesis images were obtained and synthetic 2-D images were generated. CAD analysis was submitted and interpreted. COMPARISON: 03/10/2014 bilateral screening mammogram BREAST PARENCHYMAL COMPOSITION: The breasts are almost entirely fatty. FINDINGS: There are scattered bilateral benign calcifications. Benign-appearing axillary tail and axi llary lymph nodes. There is no evidence of suspicious mass, calcification, or architectural distortio n to suggest malignancy in either breast. There has been no suspicious interval change. IMPRESSION: 1. No mammographic evidence of malignancy. 2. Recommend routine screening mammography in one year. BI-RADS Category 2: Benign finding(s). Reviewed, dictated and finalized at location A.
== END 2022-12-12 11:50 | disposition home or self-care (01) ==
LOC: CHSIMG 11:50
PROVIDERS: PCP Internal Medicine; Visit Provider Internal Medicine
DX: Z12.31 Encounter for screening mammogram for malignant neoplasm of breast (principal); Z78.0 Asymptomatic menopausal state
CPT/HCPCS: 77063; 77067; 77080

== ENCOUNTER 2023-04-25 14:04 | Outpatient (CLI) | payer MEDICARE, SELFPAY ==
--- NOTE | ~2023-04-25 | XR_ITS ---
EXAMINATION: XR chest 2V DATE: 04/25/2023 14:32 INDICATION: Chest congestion. TECHNIQUE: Frontal and lateral views of the chest were obtained. COMPARISON: Chest single view 10/01/2020, lumbar spine radiograph 07/18/2022 FINDINGS: There is no pneumonia, pleural effusion, or pneumothorax. The heart size is normal. There i s mild chronic anterior wedging of T11 and T12 vertebral bodies. IMPRESSION: 1. No acute cardiopulmonary disease. Reviewed, dictated and finalized at location E. [employer]
[2023-04-25 14:32] LABS: Basophils Absolute Auto 0.04 K/mm3 (0.00-0.10); Basophils Percent Auto 0.5 % (0.0-1.0); Eosinophils Absolute Auto 0.14 K/mm3 (0.02-0.50); Eosinophils Percent Auto 1.8 % (1.0-6.0); Hematocrit 40.6 % (35.0-42.0); Hemoglobin 13.1 g/dL (11.7-13.8); Immature Granulocyte Absolute 0.04 K/mm3 (0.00-0.00); Immature Granulocyte Percent A 0.5 % (0.0-0.0); Lymphocytes Absolute Auto 2.48 K/mm3 (1.10-4.50); Lymphocytes Percent Auto 31.8 % (18.0-42.0); Mean Corpuscular HGB Conc 32.3 g/dL (32.0-36.0); Mean Platelet Volume 9.1 fl (9.2-11.8); Monocytes Absolute Auto 0.47 K/mm3 (0.10-0.90); Neutrophils Absolute Auto 4.6 K/mm3 (1.7-7.2); Neutrophils Percent Auto 59.4 % (50.0-70.0); Platelet Count Result 353 K/mm3 (150-420); Red Blood Count 4.23 M/mm3 (4.20-5.40); Red Cell Distribution Width 12.9 % (11.6-14.4); White Blood Count 7.8 K/mm3 (4.8-10.8)
[2023-04-25 15:16] LABS: Alanine Aminotransferase 18 U/L (14-59); Albumin Level 3.2 g/dL (3.4-5.0); Alkaline Phosphatase 94 U/L (46-116); Anion Gap 8 mmol/L (8-16); Aspartate Amino Transferase 12 U/L (15-37); Bilirubin,Total 0.2 mg/dL (0.00-1.00); Blood Urea Nitrogen 11 mg/dL (7-18); Calcium 8.3 mg/dL (8.5-10.1); Carbon Dioxide 32 mmol/L (21-32); Chloride 101 mmol/L (98-108); Cholesterol 206 mg/dL (0-200); Estimated Glomerular Filt Rate > 60; Glucose 115 mg/dL (70-99); HDL Direct 51 mg/dL (40-60); LDL Cholesterol Calculated 82 mg/dL (<130); Osmolality Calculated 292 mOsm/kg (285-295); Potassium 3.5 mmol/L (3.5-5.1); Sodium 141 mmol/L (136-145); Total Protein 6.3 g/dL (6.4-8.2); Triglycerides 364 mg/dL (0-150)
[2023-04-28 16:18] LABS: Oxcarbazepine 20.8 mcg/mL (8.0-35.0)
== END 2023-04-25 14:05 | disposition home or self-care (01) ==
LOC: CHSLAB 14:10
PROVIDERS: PCP Internal Medicine; Visit Provider Internal Medicine
DX: G40.909 Epilepsy, unspecified, not intractable, without status epilepticus (principal); J44.9 Chronic obstructive pulmonary disease, unspecified; E78.5 Hyperlipidemia, unspecified
CPT/HCPCS: 36415; 71046; 80053; 80061; 80183; 85025

== ENCOUNTER 2023-04-30 13:17 | Outpatient (CLI) | payer MEDICARE, SELFPAY ==
--- NOTE | ~2023-04-30 | CT_ITS ---
EXAMINATION:CT lung screening DATE: 04/30/2023 13:47 INDICATION: Personal history of tobacco dependence. Smoker who quit 10 years ago with 30 pack year hi story. TECHNIQUE: Computed tomography (CT) of the chest was performed without intravenous contrast. Automate d exposure control and iterative reconstruction technique were employed. The dose-length product (DLP ) was 152.59 mGy-cm. COMPARISON: Chest CT 07/04/2019 FINDINGS: The lungs demonstrate minimal atelectasis. No pleural effusion. Right thyroid lobe is enlar ged. There is calcified atherosclerosis of the aorta and many of the other arteries. The heart size i s normal. There are coronary artery calcifications. No pericardial effusion. There is severe thoracic spondylosis. IMPRESSION: 1. Lung-RADS category 1: Negative. Continue annual screening with noncontrast low-dose chest CT in 12 months. Reviewed, dictated and finalized at location A. IMPRESSION: 1. Lung-RADS category 1: Negative. Continue annual screening with noncontrast l ow-dose chest CT in 12 months.
== END 2023-04-30 13:18 | disposition home or self-care (01) ==
LOC: CHSIMG 13:18
PROVIDERS: PCP Internal Medicine; Visit Provider Internal Medicine
DX: Z12.2 Encounter for screening for malignant neoplasm of respiratory organs (principal); Z87.891 Personal history of nicotine dependence
CPT/HCPCS: 71271

== ENCOUNTER 2023-05-14 12:54 | Outpatient (CLI) | payer MEDICARE, SELFPAY ==
--- NOTE | ~2023-05-14 | XR_ITS ---
EXAM: XR knee LT min 4V DATE: 05/14/2023 13:17 HISTORY: left knee pain . COMPARISON: 10/18/2015. FINDINGS: Decreased mineralization. No fracture or dislocation. No lytic or blastic lesion. Femoral artery stent. Moderate medial and lateral joint space narrowing. Tricompartmental osteophytosis, mode rate in the medial compartment. Quadriceps enthesopathy. Chondrocalcinosis. Scattered vascular calcif ications. No erosion or periosteal change. Soft tissues within normal limits. IMPRESSION: Moderate tricompartmental left knee arthritis, with chondrocalcinosis. Interval progressi on noted since the comparison study. Reviewed, dictated and finalized at location K. IMPRESSION: Moderate tricompartmental left knee arthritis, with chondrocalcinos is. Interval progression noted since the comparison study.
== END 2023-05-14 12:55 | disposition home or self-care (01) ==
LOC: CHSIMG 12:56
PROVIDERS: PCP Internal Medicine; Visit Provider Internal Medicine
DX: M25.562 Pain in left knee (principal); M17.12 Unilateral primary osteoarthritis, left knee; M11.262 Other chondrocalcinosis, left knee
CPT/HCPCS: 73564

== ENCOUNTER 2023-06-17 13:04 | Outpatient (CLI) | payer MEDICARE, SELFPAY ==
--- NOTE | ~2023-06-17 | XR_ITS ---
XR sinus min 3V 06/17/2023 14:18 Indication: Sinus disease Procedure: 5 views of the sinuses Comparison: No prior studies for comparison. Findings: There is pneumatization of the paranasal sinuses without significant opacification or air-f luid level. No significant nasal septal deviation. Impression: 1: No significant abnormality of the paranasal sinuses. Reviewed, dictated and finalized at location B. Impression: 1: No significant abnormality of the paranasal sinuses.
== END 2023-06-17 13:05 | disposition home or self-care (01) ==
LOC: CHSCARD 13:05
PROVIDERS: PCP Internal Medicine; Visit Provider Internal Medicine
DX: G40.909 Epilepsy, unspecified, not intractable, without status epilepticus (principal); J44.9 Chronic obstructive pulmonary disease, unspecified; E78.5 Hyperlipidemia, unspecified; J32.9 Chronic sinusitis, unspecified
CPT/HCPCS: 70220; 94060

== ENCOUNTER 2023-10-17 13:56 | Outpatient (CLI) | payer MEDICARE, SELFPAY ==
--- NOTE | ~2023-10-17 | US_ITS ---
EXAMINATION: US arterial ankle brachial ind DATE: 10/17/2023 15:07 INDICATION: Peripheral arterial occlusive disease TECHNIQUE: Segmental pressures and plethysmographic and Doppler waveforms of the brachial and lower e xtremity arteries were obtained. COMPARISON: None. FINDINGS: Right and left brachial artery pressures of 160 mm Hg and 157 mm Hg, respectively, are concordant (no rmal difference <= 30 mmHg). The right ankle-brachial index (DARREL) is 0.58 (normal >= 0.9-1.0). The right great toe-brachial index (TBI) is 0.39 (normal >= 0.65). Arterial Doppler waveforms are monophasic with normal systolic upstro kes at the right dorsalis pedis artery and with reversed waveform with delayed upstroke at the right posterior tibial artery. The left DARREL is 0.36. The left TBI is unable to be obtained due to no discernible Doppler flow at the left great toe. Arterial Doppler waveforms are monophasic with delayed upstrokes at both the left do rsalis pedis and posterior tibial arteries. IMPRESSION: 1. Moderate to severe arterial occlusive disease to bilateral lower limbs with moderately decreased r ight DARREL and TBI with reversed flow in the right posterior tibial artery and severely decreased left DARREL with no dopplerable flow at the left great toe. Reviewed, dictated and finalized at location A. IMPRESSION: 1. Moderate to severe arterial occlusive disease to bilateral lower limbs with moderately decreased right DARREL and TBI with reversed flow in the right posterio r tibial artery and severely decreased left DARREL with no dopplerable flow at the left great toe.
== END 2023-10-17 13:57 | disposition home or self-care (01) ==
LOC: CHSIMG 13:58
PROVIDERS: PCP Internal Medicine; Visit Provider Internal Medicine
DX: I73.9 Peripheral vascular disease, unspecified (principal); M48.062 Spinal stenosis, lumbar region with neurogenic claudication
CPT/HCPCS: 93922

== ENCOUNTER 2023-11-15 09:47 | Outpatient (CLI) | payer MEDICARE, SELFPAY ==
--- NOTE | ~2023-11-15 | MR_ITS ---
MRI of the lumbar spine Clinical History: Back pain radiating to lower extremities Technique: Axial T2-weighted images, and sagittal T1-weighted, T2-weighted, and T2 fat-sat images wer e acquired. Findings: No fracture identified. There is minimal grade 1 retrolisthesis of L2 over L3, and of L3 ov er L4. No suspicious bone marrow signal abnormality seen. At L1-L2, there is no significant disc bulge or herniation. There is moderate facet arthropathy. No c entral canal stenosis or neural foraminal narrowing. At L2-L3, there is diffuse disc bulge/protrusion, with moderate facet arthropathy. There is moderate spinal canal stenosis/thecal sac compression. There is mild bilateral neural foraminal narrowing. At L3-L4, there is mild to moderate degenerative disc change. There is diffuse disc bulge with advanc ed facet arthropathy. There is mild to moderate central canal stenosis. There is moderate left neural foraminal narrowing, and severe right neural foraminal compromise. At L4-L5, there is diffuse disc bulge and severe facet arthropathy, resulting in moderate spinal lorenza l stenosis. There is moderate right neural foraminal narrowing, and mild left neural foraminal narrow ing. At L5-S1, there is diffuse disc bulge/protrusion with advanced facet arthropathy. No central canal st enosis. There is severe bilateral neural foraminal compromise, right worse than left. Paravertebral soft tissues are unremarkable. Impression: Severe degenerative spondylosis, as above. Minimal grade 1 retrolisthesis of L2 over L3, and of L3 over L4. Reviewed, dictated and finalized at [facility]. Impression: Severe degenerative spondylosis, as above. Minimal grade 1 retrolisthesis of L2 over L3, and of L3 over L4.
== END 2023-11-15 09:48 | disposition home or self-care (01) ==
LOC: CHSIMG 09:52
PROVIDERS: PCP Internal Medicine; Visit Provider Internal Medicine
DX: I73.9 Peripheral vascular disease, unspecified (principal); M48.062 Spinal stenosis, lumbar region with neurogenic claudication; M43.06 Spondylolysis, lumbar region
CPT/HCPCS: 72148

== ENCOUNTER 2023-12-16 13:51 | Outpatient (CLI) | payer MEDICARE, SELFPAY ==
--- NOTE | ~2023-12-16 | XR_ITS ---
3 VIEWS LUMBAR SPINE Ordering provider: Fran Calixto History: . Retrolisthesis of vertebrae - MRI 11/14, procedure on 12/21 . Comparison: None. FINDINGS: VERTEBRAL BODIES:Loss of height anteriorly is seen in the patella L2, L3 and L4 most likely chronic. No visible acute fracture or subluxation. Degenerative changes of the spine. Minimal retrolisthesis at the level of L3-L4. DISK SPACES: Narrowing of the disc T12-L1, L1-L2, L2-L3, L3-L4, L4-L5 and L5-S1. SOFT TISSUES: Atherosclerotic changes of the aorta. IMPRESSION: No acute osseous abnormality lumbar spine. Multilevel degenerative disc disease. Reviewed, dictated and finalized at location [facility].
== END 2023-12-16 13:52 | disposition home or self-care (01) ==
PROVIDERS: PCP Internal Medicine
DX: M43.10 Spondylolisthesis, site unspecified (principal); M51.369 Other intervertebral disc degeneration, lumbar region without mention of lumbar back pain or lower extremity pain
CPT/HCPCS: 72110

== ENCOUNTER 2024-03-25 13:22 | Outpatient (CLI) | payer MEDICARE, SELFPAY ==
--- NOTE | ~2024-03-25 | MM_ITS ---
EXAMINATION: MM screening lisa BI w roxanna HISTORY: Screening TECHNIQUE: Craniocaudal and mediolateral oblique 3-D tomosynthesis images were obtained and synthetic 2-D images were generated. CAD analysis was submitted and interpreted. COMPARISON: Comparison to multiple prior studies sequentially, with oldest reviewed study dated 03/10. BREAST PARENCHYMAL COMPOSITION: Not dense: There are scattered areas of fibroglandular density. FINDINGS: There is no evidence of suspicious mass, calcification, or architectural distortion to sugg est malignancy in either breast. There has been no suspicious interval change. IMPRESSION: 1. No mammographic evidence of malignancy. 2. Recommend routine screening mammography in one year. BI-RADS Category 1: Negative Reviewed, dictated and finalized at location B. DIGGER
--- OUTSIDE RECORDS SUMMARY | 2024-03-25 13:32 | XMS_ITS | Encounter Summary ---
Author Organization [facility] Facility Care Team Providers Care Stock Plan Administrator Name Role Phone Unknown, Notinfile Primary Care Provider Unavail able Fady Noble Primary Care Provide r Leo Maya MD Primary Care Provid er Mj Marquis MD Unavailable [phone] Sarthak, Berna Unavailable [phone] Zayda Bauman LPN Unavailable [phone] Sarthak, Berna Unavailable [phone] Mitch James MD Primary Care Provider [phone] Encounter Details Date Type Department Care Team (Latest Contact Info) Description 01/21/2017 Orders Only [facility] CLINCONV ProviderHarjinder MD [address] [place] [address] Social History Tobacco Use Types Packs/Day Years Used Date Smoking Tobacco: Former Comments Unknown Sex and Gender Information Value Date Recorded Sex Assigned at Not on file Legal Sex Female 1:20 AM RISK MANAGEMENT MANAGER Gender Identity Not on file Sexual Orientation Not on file documented as of this encounter Plan of Treatment Not on file documented as of this encounter Procedures Procedure Name Priority Date/Time Associated Diagnosis Comments SCAN - LABS 01/21/2017 12:00 AM RISK MANAGEMENT MANAGER CARDIOLOGY REPORT 01/21/2017 12: 00 AM RISK MANAGEMENT MANAGER documented in this encounter Results * SCAN - LABS (01/21/2017 12:00 AM RISK MANAGEMENT MANAGER) Narrative 01/21/2017 12:00 AM RISK MANAGEMENT MANAGER Ordered by an unspecified provider. us Historical Provider Final Res ult * CARDIOLOGY REPORT (01/21/2017 12:00 AM RISK MANAGEMENT MANAGER) Anatomical Region Laterality Modality Other Narrative 01/21/2017 12:00 AM RISK MANAGEMENT MANAGER Ordered by an unspecified provider. Historical Provider CV CARDIAC SERVICES PROCE JOLLY Final Result documented in this encounter Visit Diagnoses Not on filedocumented in this encounter Care Teams Stock Plan Administrator Relationship Specialty Start Date End Date Unknown, Notinfile PCP - General 01/21/17 01/26/17 Fady Noble PA [address] [place] [address] PCP - General 01/27/17 06/03/18 Leo Maya MD [address] [place] [address] PCP - General Family Medicine 06/04/18 02/28/22 Mitch James MD [address] [place] [address] [address] [place] [address] PCP - General Internal Medicine 03/01/22 Mj Marquis MD [address] [facility] [facility] [address] [address] [place] [address] Surgeon Surgery 09/04/20 Berna De León [address] [place] [address] [address] [place] [address] ACO Care Guide 09/05/20 09/05/20 Zayda Bauman LPN [address] [place] [address] Custom Shoemaker 09/07/20 09/07/20 Berna De León [address] [place] [address] ACO Care Guide 09/07/20 09/14/20 documented as of this encounter
--- OUTSIDE RECORDS SUMMARY | 2024-03-25 13:32 | XMS_ITS | Referral Summary ---
Author Organization [facility] Address [address] [address] Care Team Providers Care Financial Consultant Name Role Phone Mitch James MD Primary Care Provider [phone] Source Comments [facility],non-owned Affiliates and Associated Physician Practices is amultiple site organization consisting of ambulatory clinics and hospital sitesin [place], [place], [place] and [place]. This disclosure is being madepursuant to the Care Everywhere program and may not contain all information available regarding this patient. Last updated 17.[facility] Allergies Active Allergy Reactions Criticality Noted Date Comments Adhesive Sensitivity Itching,Rash Medium 08/13/2015 Diazepam Other High 10/27/2014 Medications * Be aware that medications may not be up to date on this document. Alwaysverify current medications with the patient. Medication Sig Dispensed Refills Start Date End Date Status acetaminophen (TYLENOL) 500 MG capsule 500 mg every 6 hours Active Garlic 1000 MG 1,000 mg Active aspirin EC (ECOTRIN) 325 MG tablet Take 325 mg by mouth once daily 08/15/2015 Active atorvastatin (LIPITOR) 40 MG tablet 40 mg once daily 02/24/2017 Active Cholecalciferol (VITAMIN D-[address]) 1000 units 1,000 Units once daily Active DULoxetine (CYMBALTA) 60 MG capsule Take 60 mg by mouth once daily 01/29/2017 Active folic acid (FOLVITE) 1 MG tablet 1 mg once daily Active lisinopril (PRINIVIL; ZESTRIL) 20 MG tablet 05/31/2018 Act curtis metoprolol succinate XL 24hr (TOPROL XL) 25 MG tablet 25 mg once daily Active omeprazole (PRILOSEC) 20 MG capsule 20 mg once daily Activ e OXcarbazepine (TRILEPTAL) 600 MG tablet TAKE 1 AND 1/2 TABLETS BY MOUTH TWICE DAILY 04/16/2017 Active oxybutynin (DITROPAN) 5 MG tablet TAKE 1 TABLET BY MOUTH AT BEDTIME 11/11/2018 Active PARoxetine (PAXIL) 20 MG tablet Take 20 mg by mouth once daily 07/20/2018 Active tiZANidine (ZANAFLEX) 4 MG tablet Take 4 mg by mouth 10/14/2018 Activ e Active Problems No known active problems Immunizations Name Administration Dates Next Due Pneumococcal Pcv13 Conj 07/18/2010 TDAP (7yrs+) 05/16/2017 Social History Tobacco Use Types Packs/Day Years Used Date Smoking Tobacco: Every Day Cigarettes Smokeless Tobacco: Never Tobacco Cessation:Ready to Q uit: No; Counseling Given: Yes Sex and Gender Information Value Date Recorded Sex Assigned at Not on file Gender Identity Not on file Sexual Orientation Not on file Last Filed Vital Signs Vital Sign Reading Time Taken Comments Blood Pressure 130/70 11/12/2018 1:52 PM CDT Pulse 61 11/12/2018 1:52 PM CDT Temperature 36.7 C (98 F) 11/12/2018 1:52 PM CDT Respiratory Rate - - Oxygen Saturation - - Inhaled Oxygen Concentration - - Weight 112.5 kg (248 lb) 11/12/2018 1:52 PM CDT Height 165.1 cm (5' 5 ) 11/12/2018 1:52 PM CDT Body Mass Index 41.27 11/12/2018 1:52 PM CDT Plan of Treatment Not on file Procedures Procedure Name Priority Date/Time Associated Diagnosis Comments RENAL FUNCTION PANEL Routine 11/19/2018 6:00 PM CDT Hyponatremia from Last 3 Months or Most Recently Relevant to Health Maintenance Results * (ABNORMAL) RENAL FUNCTION PANEL (11/19/2018 6:00 PM CDT) Glucose 138(H) 65 - 99 mg/dL [facility] Comment: Fasting reference interval For someone without known diabetes, a glucose value >125 mg/dL indicates that they may have diabetes and this should be confirmed with a follow-up test. BUN 15 7 - 25 mg/dL [facility] Creatinine 0.95 0.50 - 0.99 mg/dL [facility] Comment: For patients >49 years of age, the reference limit for Creatinine is approximately 13% higher for people identified as -Vincentian. eGFR by MDRD 62 > OR = 60 mL/min/1 .73m2 [facility] eGFR by MDRD 72 > OR = 60 mL/min/1 .73m2 [facility] BUN/Creatinine Ratio NOT APPLICABLE 6 - 22 (calc) [facility] Sodium 137 135 - 146 mmol/L [facility] Potassium 3.7 3.5 - 5.3 mmol/L [facility] Chloride 99 98 - 110 mmol/L [facility] CO2 27 20 - 32 mmol/L [facility] Calcium 8.8 8.6 - 10.4 mg/dL [facility] Phosphorus 3.1 2.1 - 4.3 mg/dL [facility] Albumin 3.7 3.6 - 5.1 g/dL [facility] Comment: Test Performed at: [facility] [address] [place] [address] MARIA M FORD DO,MPH Blood BLOOD SPECIMEN / Unknown 11/19/2018 3:01 AM CDT Presley Chakraborty MD LAB - CHEMISTRY CLEMENTE CESAR [facility] Organization Address City/State/ZIP Co de Phone Number [facility] [address] [place] [address] from Last 3 Months or Most Recently Relevant to Health Maintenance Care Teams Financial Consultant Relationship Specialty Start Date End Date Mitch James MD [address] [place] [address] PCP - General 01/25/22
--- OUTSIDE RECORDS SUMMARY | 2024-03-25 13:32 | XMS_ITS | Clinical Summary ---
Author Organization [facility] Address [address] [place] [address] Care Team Providers Care Bulk Pallet Builder Name Role Phone Mitch James MD Primary Care Provider [phone] Source Comments [facility],non-owned Affiliates and Associated Physician Practices is amultiple site organization consisting of ambulatory clinics and hospital sitesin [place], [place], [place] and [place]. This disclosure is being madepursuant to the Care Everywhere program and may not contain all information available regarding this patient. Last updated 17.[facility] Allergies Active Allergy Reactions Criticality Noted Date [...] Pneumococcal Pcv13 Conj 07/18/2010 TDAP (7yrs+) 05/16/2017 Family History Medical History Relation Name Comments Asthma Daughter Autoimmune Disease Daughter Thyroid Disease Daughter Hypertension Father Cancer - Other Maternal Grandfather Hypertension Mother Autoimmune Disease Sister Cancer - Breast Sister Relation Name Status Comments Daughter Father Maternal Grandfather Mother Sister Social History Tobacco Use Types Packs/Day Years [...] 11/12/2018 1:52 PM CDT Plan of Treatment Health Maintenance Due Date Last Done Comments BONE DENSITY TESTING 1950 COLOGUARD (AGES 45-75) - COL ON CA SCREENING 1950 COLON MONITORING 1950 COLONOSCOPY - COLON CA SCREENING 1950 CT COLONOGRAPHY - COLON CA SCREENING 1950 Colorectal Cancer Screening 1950 FIT - COLON CA SCREENING 1950 FLEX SIG - COLON CA SCREENING 1950 MAMMOGRAM 1950 HEPATITIS C SCREENING 11/27/1969 ZOSTER VACCINE (1 of 2) 12/01/2001 PNEUMOCOCCAL VACCINE 50+ (2 of 2 - PPSV23) 09/12/2010 07/18/2010 Respiratory Syncytial Virus (RSV) Vaccine Pt: or over 60 yrs (1 - Risk 60-74 years 1-dose series) 2011 SCREENING FOR DIABETES 11/19/2021 11/19/2018 COVID-19 VACCINE (1 - 2023-2 5 season) 2023 INFLUENZA VACCINE (#1) 2023 DEPRESSION SCREENING 02/18/2024 DTAP/TDAP/TD VACCINES (2 - T d or Tdap) 05/17/2027 05/16/2017 HEPATITIS B VACCINE Aged Out No longe r eligible based on patient's age to complete this topic HIB VACCINE Aged Out No longer eligi ble based on patient's age to complete this topic HPV VACCINE Aged Out No longer eligi ble based on patient's age to complete this topic MENINGOCOCCAL (Group B) VACCINE Aged Out No longer eligible based on patient's age to complete this topic MENINGOCOCCAL VACCINE Aged Out No avani delphine eligible based on patient's age to complete this topic Procedures Procedure Name Priority Date/Time Associated Diagnosis [...] approximately 13% higher for people identified as -Kittitian. eGFR by MDRD 62 > OR = 60 mL/min/1 .73m2 [facility] eGFR by MDRD 72 > OR = 60 mL/min/1 .73m2 [facility] BUN/Creatinine Ratio NOT APPLICABLE (calc) [facility] Sodium 137 135 - 146 mmol/L [facility] Potassium 3.7 3.5 - 5.3 mmol/L [facility] Chloride 99 98 - 110 mmol/L [facility] CO2 27 20 - 32 mmol/L [facility] Calcium 8.8 8.6 - 10.4 mg/dL [facility] Phosphorus 3.1 2.1 - 4.3 mg/dL [facility] Albumin 3.7 3.6 - 5.1 g/dL [facility] Comment: Test Performed at: [facility] [address] [place] [address] MARIA M FORD DO,MPH Blood BLOOD SPECIMEN / Unknown 11/19/2018 3:01 AM CDT Presley Chakraborty MD LAB - CHEMISTRY CLEMENTE CESAR [facility] Organization Address City/State/ZIP Co de Phone Number [facility] [address] [place] [address] from Last 3 Months or Most Recently Relevant to Health Maintenance Care Teams Bulk Pallet Builder Relationship Specialty Start Date End Date Mitch James MD [address] [place], [place] [id number] PCP - General 01/25/22
--- OUTSIDE RECORDS SUMMARY | 2024-03-25 13:32 | XMS_ITS | Encounter Summary ---
Author Organization [facility] Facility Care Team Providers Care Manager Of Revenue Name Role Phone Fady Noble Primary Care Provide r Leo Maya MD Primary Care Provid er Mj Marquis MD Unavailable [phone] Berna De León Unavailable [phone] Zayda Bauman LPN Unavailable [phone] Berna De León Unavailable [phone] Mitch James MD Primary Care Provider [phone] Encounter Details Date Type Department Care Team (Latest Contact Info) Description 07/06/2017 Orders Only [facility] CLINCONV ProviderHarjinder MD [address] [place] [address] Social History Tobacco Use Types Packs/Day Years Used Date Smoking Tobacco: Former Comments Unknown Sex and Gender Information Value Date Recorded Sex Assigned at Not on file Legal Sex Female 1:20 AM ARTIST'S REPRESENTATIVE Gender Identity Not on file Sexual Orientation Not on file documented as of this encounter Plan of Treatment Not on file documented as of this encounter Procedures Procedure Name Priority Date/Time Associated Diagnosis Comments SCAN - LABS 07/06/2017 12:00 AM CDT CARDIOLOGY REPORT 07/06/2017 12: 00 AM CDT documented in this encounter Results * SCAN - LABS (07/06/2017 12:00 AM CDT) Narrative 07/06/2017 12:00 AM CDT Ordered by an unspecified provider. us Historical Provider Final Res ult * CARDIOLOGY REPORT (07/06/2017 12:00 AM CDT) Anatomical Region Laterality Modality Other Narrative 07/06/2017 12:00 AM CDT Ordered by an unspecified provider. us Historical Provider CV CARDIAC SERVICES PROCE JOLLY Final Result documented in this encounter Visit Diagnoses Not on filedocumented in this encounter Care Teams Manager Of Revenue Relationship Specialty Start Date End Date Fady Noble PA [address] [place] [address] PCP - General 01/27/17 06/03/18 Leo Maya MD [address] [place] [address] PCP - General Family Medicine 06/04/18 02/28/22 Mitch James MD [address] [place] [address] [address] [place] [address] PCP - General Internal Medicine 03/01/22 Mj Marquis MD [address] [place] [address] Surgeon Surgery 09/04/20 Berna De León [address] [place] [address] [address] [place] [address] ACO Care Operations Examiner 09/05/20 09/05/20 Zayda Bauman LPN [address] [place] [address] [address] [place] [address] Can Machine Operator 09/07/20 09/07/20 Berna De León [address] [place] [address] ACO Care Operations Examiner 09/07/20 09/14/20 documented as of this encounter
--- OUTSIDE RECORDS SUMMARY | 2024-03-25 13:32 | XMS_ITS | Encounter Summary ---
Author Organization [facility] Facility Care Team Providers Care Specialty Molder Name Role Phone Fady Noble Primary Care Provide r Leo Maya MD Primary Care Provid er Mj Marquis MD Unavailable [phone] Berna De León Unavailable [phone] Zayda Bauman LPN Unavailable [phone] Berna De León Unavailable [phone] Mitch James MD Primary Care Provider [phone] Encounter Details Date Type Department Care Team (Latest Contact Info) Description 03/11/2017 Orders Only [facility] CLINCONV ProviderHarjinder MD [address] [place] [address] Social History Tobacco Use Types Packs/Day Years Used Date Smoking Tobacco: Former Comments Unknown Sex and Gender Information Value Date Recorded Sex Assigned at Not on file Legal Sex Female 1:20 AM COMMERCIAL DIRECTOR Gender Identity Not on file Sexual Orientation Not on file documented as of this encounter Plan of Treatment Not on file documented as of this encounter Procedures Procedure Name Priority Date/Time Associated Diagnosis Comments SCAN - LABS 03/17/2017 12:00 AM COMMERCIAL DIRECTOR documented in this encounter Results * SCAN - LABS (03/17/2017 12:00 AM COMMERCIAL DIRECTOR) Narrative 03/17/2017 12:00 AM COMMERCIAL DIRECTOR Ordered by an unspecified provider. us Historical Provider Final Res ult documented in this encounter Visit Diagnoses Not on filedocumented in this encounter Care Teams Specialty Molder Relationship Specialty Start Date End Date Fady Noble PA [address] [facility] [place] [address] PCP - General 01/27/17 06/03/18 Leo Maya MD [address] [place] [address] PCP - General Family Medicine 06/04/18 02/28/22 Mitch James MD [address] [place] [address] [address] [place] [address] PCP - General Internal Medicine 03/01/22 Mj Marquis MD [address] [facility] [address] [place] [address] Surgeon Surgery 09/04/20 Berna De León [facility] [address] [place] [address] ACO Care Resident Caregiver 09/05/20 09/05/20 Zayda Bauman LPN [address] [place] [address] [address] [place] [address] Cane Burner 09/07/20 09/07/20 Berna De León [address] [place] [address] [place] [address] ACO Care Resident Caregiver 09/07/20 09/14/20 documented as of this encounter
--- OUTSIDE RECORDS SUMMARY | 2024-03-25 13:32 | XMS_ITS | Patient Health Summary ---
Author Organization [facility] Address [address] [facility] [place] [address] Care Team Providers Care Title Curative Specialist Name Role Phone Mitch James MD Primary Care Provider [phone] Note from [facility],non-owned Affiliates and Associated Physician Practices is amultiple site organization consisting of ambulatory clinics and hospital sitesin [place], [place], [place] and [place]. This disclosure is being madepursuant to the Care Everywhere program and may not contain all information available regarding this patient. Last updated 17.[facility] Allergies * Adhesive Sensitivity(Itching,Rash) -Medium Criticality * Diazepam(Other) -High Criticality Medications * Be aware that medications may not be up to date on this document. Alwaysverify current medications with the patient. * acetaminophen (TYLENOL) 500 MG capsule 500 mg every 6 hours * Garlic 1000 MG 1,000 mg * aspirin EC (ECOTRIN) 325 MG tablet(Started 08/15/2015) Take 325 mg by mouth once daily * atorvastatin (LIPITOR) 40 MG tablet(Started 02/24/2017) 40 mg once daily * Cholecalciferol (VITAMIN D-[address]) 1000 units 1,000 Units once daily * DULoxetine (CYMBALTA) 60 MG capsule(Started 01/29/2017) Take 60 mg by mouth once daily * folic acid (FOLVITE) 1 MG tablet 1 mg once daily * lisinopril (PRINIVIL; ZESTRIL) 20 MG tablet(Started 05/31/2018) * metoprolol succinate XL 24hr (TOPROL XL) 25 MG tablet 25 mg once daily * omeprazole (PRILOSEC) 20 MG capsule 20 mg once daily * OXcarbazepine (TRILEPTAL) 600 MG tablet(Started 04/16/2017) TAKE 1 AND 1/2 TABLETS BY MOUTH TWICE DAILY * oxybutynin (DITROPAN) 5 MG tablet(Started 11/11/2018) TAKE 1 TABLET BY MOUTH AT BEDTIME * PARoxetine (PAXIL) 20 MG tablet(Started 07/20/2018) Take 20 mg by mouth once daily * tiZANidine (ZANAFLEX) 4 MG tablet(Started 10/14/2018) Take 4 mg by mouth Active Problems No known active problems Immunizations * Pneumococcal Pcv13 Conj(Given 07/18/2010) * TDAP (7yrs+)(Given 05/16/2017) Social History Tobacco Use Types Packs/Day Years [...] Mass Index 41.27 11/12/2018 1:52 PM CDT Procedures * ECHOCARDIOGRAM 2D WITH DOPPLER(Performed 11/24/2018) Performed for Hyponatremia, Congestive heart failure, unspecified HF chronicity, unspecified heart failure type (HCC) * SODIUM URINE RANDOM(Performed 11/19/2018) Performed for Hyponatremia * OSMOLALITY URINE(Performed 11/19/2018) Performed for Hyponatremia * RENAL FUNCTION PANEL(Performed 11/19/2018) Performed for Hyponatremia * DERMATOPATHOLOGY(Performed 01/19/2018) Results * ECHOCARDIOGRAM 2D WITH DOPPLER (11/24/2018 3:10 PM CDT) 11/24/2018 3:10 PM CDT Narrative [facility] - 11/26/2018 4:48 PM CDT [facility] [place] [facility] [id number] [place] [address] [place] [address] Transthoracic Echocardiogram 2D, M-mode, Doppler, and Color Doppler Patient: RACHEL ANGELA MR number: [id number] Height: 65 in Weight: 248 lb BSA: 2.17 m Study date: 24-Nov-2018 : 1950 Age: 67 years Gender: Female Race: 2 Allergies: DIAZEPAM, ADHESIVE SENSITIVITY Reading Physician: Marquez Brand MD SPRAY GUN SIZER: Luciana Amador [facility] Cardiology Group: [facility] Summary: - Clinical question: - Syncope,Rule out CHF,Edema - History: - Smoker,HTN,Tremor,CVA - Left ventricle: - Systolic function was normal. Ejection fraction was estimated in the range of 55 % to 65 %. - There were no regional wall motion abnormalities. - Wall thickness was mildly increased. - Left atrium: - The atrium was mildly dilated. Indications: Syncope,Rule out CHF,Edema History: Prior history: Smoker,HTN,Tremor,CVA Procedure: The study was performed in the [facility]. The transthoracic approach was used. The study included complete 2D imaging, M-mode, complete spectral Doppler, and color Doppler. The heart rate was 63 bpm. Systolic blood pressure was 130 mmHg. Diastolic blood pressure was 70 mmHg. Image quality was adequate. Left ventricle: Size was normal. Systolic function was normal. Ejection fraction was estimated in the range of 55 % to 65 %. There were no regional wall motion abnormalities. Wall thickness was mildly increased. Aortic valve: demonstrated normal excursion. Doppler: There was trivial regurgitation. Mitral valve: There was normal leaflet separation. Doppler: There was trivial regurgitation. Left atrium: The atrium was mildly dilated. Right ventricle: The size was normal. Pulmonic valve: Doppler: There was no significant regurgitation. Tricuspid valve: There was normal leaflet separation. Right atrium: Size was normal. Pericardium: There was no pericardial effusion. The pericardium was normal in appearance. System measurement tables 2D LVOT Diam: 2 cm LVEDV MOD A4C: 84.6 ml LVESV MOD A4C: 28.5 ml CW PV Vmax: 0.9 m/s AV VTI: 38.4 cm AV Vmax: 1.6 m/s AV Vmean: 1 m/s AV maxP.8 mmHg AV meanP mmHg PV maxP.6 mmHg MM LA Diam: 4.2 cm Ao Diam: 2.4 cm IVSd: 1.4 cm LVIDd: 4.6 cm LVIDs: 2.4 cm LVPWd: 1.5 cm TAPSE: 3.1 cm PW LVOT Vmax: 1.1 m/s JORDAN (VTI): 2.4 cm2 JORDAN Vmax: 2.3 cm2 E' Av.1 m/s E' Lat: 0.1 m/s E' Sept: 0.1 m/s E/E' Av.6 E/E' Lat: 11.9 E/E' Sept: 13.4 LVOT VTI: 28.5 cm MV A Ralf: 0.6 m/s MV Dec [place]: 4.1 m/s2 MV E Ralf: 1.1 m/s MV E/A Ratio: 1.7 RV S': 0.1 m/s Prepared and signed by Marquez Brand MD Signed 26-Nov-2018 16:48:09 Procedure Note Unknown, Provider, - 11/26/2018 [facility] [place] [address] Transthoracic Echocardiogram 2D, M-mode, Doppler, and Color Doppler Patient: RACHEL ANGELA MR number: [id number] Height: 65 in Weight: 248 lb BSA: 2.17 m Study date: 24-Nov-2018 : 1950 Age: 67 years Gender: Female Race: 2 Allergies: DIAZEPAM, ADHESIVE SENSITIVITY Reading Physician: Marquez Brand MD SPRAY GUN SIZER: Luciana Amador [facility] Cardiology Group: [facility] Summary: - Clinical question: - Syncope,Rule out CHF,Edema - History: - Smoker,HTN,Tremor,CVA - Left ventricle: - Systolic function was normal. Ejection fraction was estimated in the range of 55 % to 65 %. - There were no regional wall motion abnormalities. - Wall thickness was mildly increased. - Left atrium: - The atrium was mildly dilated. Indications: Syncope,Rule out CHF,Edema History: Prior history: Smoker,HTN,Tremor,CVA Procedure: The study was performed in the [facility]. The transthoracic approach was used. The study included complete 2D imaging, M-mode, complete spectral Doppler, and color Doppler. The heart rate was 63 bpm. Systolic blood pressure was 130 mmHg. Diastolic blood pressure was 70 mmHg. Image quality was adequate. Left ventricle: Size was normal. Systolic function was normal. Ejection fraction was estimated in the range of 55 % to 65 %. There were no regional wall motion abnormalities. Wall thickness was mildly increased. Aortic valve: demonstrated normal excursion. Doppler: There was trivial regurgitation. Mitral valve: There was normal leaflet separation. Doppler: There was trivial regurgitation. Left atrium: The atrium was mildly dilated. Right ventricle: The size was normal. Pulmonic valve: Doppler: There was no significant regurgitation. Tricuspid valve: There was normal leaflet separation. Right atrium: Size was normal. Pericardium: There was no pericardial effusion. The pericardium was normal in appearance. System measurement tables 2D LVOT Diam: 2 cm LVEDV MOD A4C: 84.6 ml LVESV MOD A4C: 28.5 ml CW PV Vmax: 0.9 m/s AV VTI: 38.4 cm AV Vmax: 1.6 m/s AV Vmean: 1 m/s AV maxP.8 mmHg AV meanP mmHg PV maxP.6 mmHg MM LA Diam: 4.2 cm Ao Diam: 2.4 cm IVSd: 1.4 cm LVIDd: 4.6 cm LVIDs: 2.4 cm LVPWd: 1.5 cm TAPSE: 3.1 cm PW LVOT Vmax: 1.1 m/s JORDAN (VTI): 2.4 cm2 JORDAN Vmax: 2.3 cm2 E' Av.1 m/s E' Lat: 0.1 m/s E' Sept: 0.1 m/s E/E' Av.6 E/E' Lat: 11.9 E/E' Sept: 13.4 LVOT VTI: 28.5 cm MV A Ralf: 0.6 m/s MV Dec [place]: 4.1 m/s2 MV E Ralf: 1.1 m/s MV E/A Ratio: 1.7 RV S': 0.1 m/s Prepared and signed by Marquez Brand MD Signed 26-Nov-2018 16:48:09 Authorizing Provider Result Abraham Chakraborty MD ECHO ORDERABLES [facility] * SODIUM URINE RANDOM (11/19/2018 6:00 PM CDT) Sodium Urine 110 28 - 272 mmol/L [facility] Comment: Test Performed at: [facility] [id number] [place] [address] MARIA M FORD DO,MPH Urine URINE SPECIMEN OBTAINED BY CLEAN CATCH PROCEDURE / Unknown 11/19/2018 3:01 AM CDT Narrative Authorizing Provider Result Abraham Chakraborty MD LAB - URINE CHEMISTR Y ORDERABLES Performing Organization Address City/[facility] Co de Phone Number [facility] [address] [place] [address] * (ABNORMAL) RENAL FUNCTION PANEL (11/19/2018 6:00 [...] approximately 13% higher for people identified as -[place]gr[place]. eGFR by MDRD 62 > OR = [...] 5.1 g/dL [facility] Comment: Test Performed at: [facility] [id number] [place] [address] MARIA M FORD DO,MPH Blood BLOOD SPECIMEN / Unknown 11/19/2018 3:01 AM CDT Presley Chakraborty MD LAB - CHEMISTRY ORDE RABLES Performing Organization Address [facility] de Phone Number [facility] [address] [place] [address] * OSMOLALITY URINE (11/19/2018 6:00 PM CDT) Osmolality Urine 448 50 - 1200 mOsm/kg [facility] Comment: NO COLLECTION DATE RECEIVED. WE HAVE USED THE DATE THE SPECIMEN WAS RECEIVED BY THIS LABORATORY THE COLLECTION DATE. IF THIS IS INCORRECT, PLEASE CONTACT CLIENT SERVICES. PHONE NUMBER: [phone] Test Performed at: [facility] [id number] [place] [address] MARIA M FORD DO,MPH Urine URINE SPECIMEN OBTAINED BY CLEAN CATCH PROCEDURE / Unknown 11/19/2018 3:01 AM CDT Presley Chakraborty MD LAB - URINE CHEMISTR Y ORDERABLES Performing Organization Address [facility] Phone Number [facility] [address] [place] [address] * DERMATOPATHOLOGY (01/19/2018 12:00 AM GARBAGE TRUCK DISPATCHER) Case Report Dermatopathology Report Case: [id number] Authorizing Provider: Leo Maya MD Collected: 01/19/2018 12:00 AM Pathologist: Gemma Duff MD Received: 01/22/2018 08:17 AM Specimen: Skin, right chest 8 3:18 PM GARBAGE TRUCK DISPATCHER DERMATOPATHOLOGY LABORATORY Final Diagnosis Specimen A. 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 Check margins. 8 3:18 PM GARBAGE TRUCK DISPATCHER DERMATOPATHOLOGY LABORATORY Gross Description Specimen A: Received is one formalin filled container labeled with the patient's name and designated right chest. The specimen consists of a shave biopsy measuring [id number]. The margin is inked green. The specimen is bisected and submitted in 1 cassette. Jar 0. 8 3:18 PM [facility] DERMATOPATHOLOGY LABORATORY Microscopic Description Specimen A. SKIN, right chest: There are nests of cytologically bland melanocytes within the dermis. Some of these melanocytes are concentrated around blood vessels and adnexal structures. This lesion is present at the margin of the specimen. 8 3:18 PM [facility] DERMATOPATHOLOGY LABORATORY Disclaimer An external and internal positive and negative controls are appropriate for the histochemical, immunohistochemical and immunofluorescence stain(s) in this case (if any), except where stated explicitly. The performance characteristics of the stain(s) cited in this report were developed and its performance characteristic determined by the Dermatopathology Laboratory at [facility]. These tests need not be, and therefore are not, approved by the [place] Food and Drug Administration. The tests are used for clinical purposes. Billing Codes Specimen Charges Stain Charges 15032 1 8 3:18 PM [facility] DERMATOPATHOLOGY LABORATORY Embedded Images 8 3:18 PM [facility] DERMATOPATHOLOGY LABORATORY Pathology/Cytolog y TISSUE SPECIMEN FROM SKIN / Unknown 01/19/2018 01/22/2018 8:17 AM GARBAGE TRUCK DISPATCHER Leo Maya MD LAB - PATHOLOGY/CYTO LOGY ORDERABLES DERMATOPATHOLOGY LABORATORY [facility] - Department of Dermatology [address] [place] [address], 5th Floor Lab [address] [phone] Care Teams Title Curative Specialist Relationship Specialty Start Date End Date Mitch James MD [address] [place] [address] PCP - General 01/25/22
--- OUTSIDE RECORDS SUMMARY | 2024-03-25 13:32 | XMS_ITS | Encounter Summary ---
Author Organization [facility] Facility Care Team Providers Care Motion Picture Set Up Worker Name Role Phone Fady Noble Primary Care Provide r Leo Maya MD Primary Care Provid er Mj Marquis MD Unavailable [phone] Berna De León Unavailable [phone] Zayda Bauman LPN Unavailable [phone] Berna De León Unavailable [phone] Mitch James MD Primary Care Provider [phone] Encounter Details Date Type Department Care Team (Latest Contact Info) Description 02/04/2017 Orders Only [facility] CLINCONV ProviderHarjinder MD [address] [place] [address] Social History Tobacco Use Types Packs/Day Years Used Date Smoking Tobacco: Former Comments Unknown Sex and Gender Information Value Date Recorded Sex Assigned at Not on file Legal Sex Female 1:20 AM MERCHANDISE APPRAISER Gender Identity Not on file Sexual Orientation Not on file documented as of this encounter Plan of Treatment Not on file documented as of this encounter Procedures Procedure Name Priority Date/Time Associated Diagnosis Comments CARDIOLOGY REPORT 02/04/2017 12: 00 AM MERCHANDISE APPRAISER documented in this encounter Results * CARDIOLOGY REPORT (02/04/2017 12:00 AM MERCHANDISE APPRAISER) Anatomical Region Laterality Modality Other Narrative 02/04/2017 12:00 AM MERCHANDISE APPRAISER Ordered by an unspecified provider. us Historical Provider [facility] SHALINI AZEVEDO Final Result documented in this encounter Visit Diagnoses Not on filedocumented in this encounter Care Teams Motion Picture Set Up Worker Relationship Specialty Start Date End Date Fady Noble PA [address] [place] [address] PCP - General 01/27/17 06/03/18 Leo Maya MD [facility] [address] [place] [address] PCP - General Family Medicine 06/04/18 02/28/22 Mitch James MD [address] [place] [address] [address] [place] [address] PCP - General Internal Medicine 03/01/22 Mj Marquis MD [address] [place] [address] Surgeon Surgery 09/04/20 Berna De León [address] [place] [address] [place] [address] ACO Care Tuber Machine Cutter 09/05/20 09/05/20 Zayda Bauman LPN [address] [place] [address] [place] [address] Silk Spooler 09/07/20 09/07/20 Berna De León [address] [place] [address] [place] [address] ACO Care Tuber Machine Cutter 09/07/20 09/14/20 documented as of this encounter
--- OUTSIDE RECORDS SUMMARY | 2024-03-25 13:32 | XMS_ITS | Encounter Summary ---
Author Organization [facility] Address [address] [place] [address] Care Team Providers Care Structural Drafter Name Role Phone Leo Maya MD Primary Care Provider [phone] Mitch James MD Primary Care Provider [phone] Encounter Details Date Type Department Care Team (Late st Contact Info) Description 01/22/[address] [facility] DermPath Lab [address] [facility] [place] [address] Leo Maya MD [address] [address] Social History Tobacco Use Types Packs/Day Years Used Date Smoking Tobacco: Never Assessed Sex and Gender Information Value Date Recorded Sex Assigned at Not on file Gender Identity Not on file Sexual Orientation Not on file documented as of this encounter Plan of Treatment Not on file documented as of this encounter Procedures Procedure Name Priority Date/Time Associated Diagnosis Comments DERMATOPATHOLOGY Routine 01/19/2018 12:0 0 AM AMBULANCE DRIVER PARAMEDIC documented in this encounter Results * DERMATOPATHOLOGY (01/19/2018 12:00 AM AMBULANCE DRIVER PARAMEDIC) Case Report Dermatopathology Report Case: [id number] Authorizing Provider: Leo Maya MD Collected: 01/19/2018 12:00 AM Pathologist: Gemma Duff MD Received: 01/22/2018 08:17 AM Specimen: Skin, right chest 12/07/201 8 3:18 PM [facility] DERMATOPATHOLOGY LABORATORY Final Diagnosis Specimen A. 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 Check margins. 3:18 PM [facility] DERMATOPATHOLOGY LABORATORY Gross Description Specimen A: Received is one formalin filled container labeled with the patient's name and designated right chest. The specimen consists of a shave biopsy measuring [id number]. The margin is inked green. The specimen is bisected and submitted in 1 cassette. Jar 0. 3:18 PM [facility] DERMATOPATHOLOGY LABORATORY Microscopic Description Specimen A. SKIN, right chest: There are nests of cytologically bland melanocytes within the dermis. Some of these melanocytes are concentrated around blood vessels and adnexal structures. This lesion is present at the margin of the specimen. 3:18 PM [facility] DERMATOPATHOLOGY LABORATORY Disclaimer An external and internal positive and negative controls are appropriate for the histochemical, immunohistochemical and immunofluorescence stain(s) in this case (if any), except where stated explicitly. The performance characteristics of the stain(s) cited in this report were developed and its performance characteristic determined by the Dermatopathology Laboratory at [facility]. These tests need not be, and therefore are not, approved by the [place] Food and Drug Administration. The tests are used for clinical purposes. Billing Codes Specimen Charges Stain Charges 67470 1 3:18 PM [facility] DERMATOPATHOLOGY LABORATORY Embedded Images 3:18 PM [facility] DERMATOPATHOLOGY LABORATORY Pathology/Cytolog y TISSUE SPECIMEN FROM SKIN / Unknown 01/19/2018 01/22/2018 8:17 AM [facility] Leo Maya MD LAB - PATHOLOGY/CYTO LOGY ORDERABLES DERMATOPATHOLOGY LABORATORY [facility] - Department of Dermatology [address] [place] [address], 5th Floor Lab [address] [phone] documented in this encounter Visit Diagnoses Not on filedocumented in this encounter Care Teams Structural Drafter Relationship Specialty Start Date End Date Leo Maya MD PCP - General Family Medicine 09/21/18 01/24/22 Mitch James MD [address] [place] [id number] PCP - General 01/25/22 documented as of this encounter
--- OUTSIDE RECORDS SUMMARY | 2024-03-25 13:32 | XMS_ITS | Encounter Summary ---
Author Organization [facility] Facility Care Team Providers Care Change Control Manager Name Role Phone Fady Noble Primary Care Provide r Leo Maya MD Primary Care Provid er Mj Marquis MD Unavailable [phone] Berna De León Unavailable [phone] Zayda Bauman LPN Unavailable [phone] Berna De León Unavailable [phone] Mitch James MD Primary Care Provider [phone] Encounter Details Date Type Department Care Team (Latest Contact Info) Description 02/20/2017 Orders Only [facility] CLINCONV ProviderHarjinder MD [address] [place] [address] Social History Tobacco Use Types Packs/Day Years Used Date Smoking Tobacco: Former Comments Unknown Sex and Gender Information Value Date Recorded Sex Assigned at Not on file Legal Sex Female 1:20 AM NEUROPSYCHOLOGY SERVICE DIRECTOR Gender Identity Not on file Sexual Orientation Not on file documented as of this encounter Plan of Treatment Not on file documented as of this encounter Procedures Procedure Name Priority Date/Time Associated Diagnosis Comments CARDIOLOGY REPORT 02/20/2017 12: 00 AM NEUROPSYCHOLOGY SERVICE DIRECTOR documented in this encounter Results * CARDIOLOGY REPORT (02/20/2017 12:00 AM NEUROPSYCHOLOGY SERVICE DIRECTOR) Anatomical Region Laterality Modality Other Narrative 02/20/2017 12:00 AM NEUROPSYCHOLOGY SERVICE DIRECTOR Ordered by an unspecified provider. us Historical Provider [facility] SHALINI AZEVEDO Final Result documented in this encounter Visit Diagnoses Not on filedocumented in this encounter Care Teams Change Control Manager Relationship Specialty Start Date End Date Fady Noble PA [address] [facility] [address] [place] [address] PCP - General 01/27/17 06/03/18 Leo Maya MD [facility] [address] [place] [address] PCP - General Family Medicine 06/04/18 02/28/22 Mitch James MD [address] [place] [address] [address] [place] [address] PCP - General Internal Medicine 03/01/22 Mj Marquis MD [address] [facility] [address] [place] [address] Surgeon Surgery 09/04/20 Berna De León [address] [place] [address] [place] [address] ACO Care Transition Mgr 09/05/20 09/05/20 Zayda Bauman LPN [address] [place] [address] [place] [address] Account Collector 09/07/20 09/07/20 Berna De León [address] [place] [address] [place] [address] ACO Care Transition Mgr 09/07/20 09/14/20 documented as of this encounter
--- OUTSIDE RECORDS SUMMARY | 2024-03-25 13:32 | XMS_ITS | Clinical Summary ---
Author Organization [facility] Address [facility] [place] [address] Care Team Providers Care Executive Admin Name Role Phone Mitch James MD Primary Care Provider [phone] Hussein Rao MD Unavailable Allergies Active Allergy Reactions Criticality Noted Date Comments Tape Rash Low 11/12/2018 Diazepam Syncope 11/12/2018 Medications TYLENOL 325 MG Cap Take 650 mg by mouth every 6 (six) hours as needed. 0 12/28/19 18 Active Garlic 1000 MG capsule Take 1,000 mg by mouth daily. Active albuterol sulfate HFA 108 (90 Base) MCG/ACT inhaler Inhale 2 puffs into the lungs every 4 (four) hours as needed for Wheezing. Or sob 5 10/21/19 19 Active aspirin 325 MG tablet Take 325 mg by mouth daily. Active atorvastatin 40 MG tablet 40 mg nightly at bedtime. 02/24/19 18 Active vitamin B-12 (CYANOCOBALAMIN) [address] 1,000 mcg under the tongue daily. 08/15/19 16 Active duloxetine 60 MG capsule Take 60 mg by mouth daily. 01/30/20 17 Active folic acid 1 MG tablet Take 1 mg by mouth daily. Active lisinopril 20 MG tablet Take 20 mg by mouth 2 (two) times a day. 10/23/19 19 Active metoprolol succinate ER 25 MG 24 hr tablet Take 25 mg by mouth daily. Active omeprazole 20 MG capsule Take 20 mg by mouth daily. Active OXcarbazepine 600 MG Tab tablet Take 900 mg by mouth nightly. 04/16/19 18 Active oxybutynin 5 MG tablet Take 5 mg by mouth 2 (two) times daily. 1.5 twice daily 11/13/19 19 Active paroxetine 20 MG tablet Take 20 mg by mouth nightly. 11/13/19 19 Active tizanidine 4 MG tabletIndications: hadn't been taken recently due to hallucinations Take 4 mg by mouth nightly as needed. Indications: hadn't been taken recently due to hallucinations 10/15/19 19 Active CALCIUM CITRATE-VITAMIN D OR Take 1 tablet by mouth daily. Calcium citrate plus 800 mg + D-3 800 iu + 400 mg Magnesium Active buPROPion SR 150 MG 12 hr tablet Take 150 mg by mouth 2 (two) times daily. Active meloxicam 7.5 MG tablet Take 1 tablet by mouth daily. 04/03/19 20 Active CALCIUM-MAGNESUIUM -ZINC 333-133-8.3 MG Tab Take 500 mg by mouth daily. Active Active Problems Problem Noted Date Diagnosed Date Encephalopathy 11/13/2018 CVA, old, alterations of sensations 11/13/2018 Hypertension 11/13/2018 Essential tremor 11/13/2018 Hyponatremia 11/13/2018 Syncope 11/13/2018 Seizure disorder ([facility]) 11/13/2018 Cerebrovascular accident (CV A) due to embolism of cerebral artery ([facility]) 06/17/2018 Neuropathy 06/04/2018 Nicotine dependence, cigarettes, uncomplicated 1 History of renal cell cancer 07/07/2017 Carotid occlusion, right 03/06/2017 Anxiety about health 01/31/2017 Atherosclerosis of both carotid arteries 017 Essential (primary) hypertension 01/31/2017 Bilateral carotid artery disease 01/27/2017 Overview (11/13/2018): Last Assessment & Plan: Patient has stable carotid disease with 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 Her new symptoms I do not suspect are secondary to her extracranial vascular disease. She has established with a neurologist in the past and given her new movement disorder and memory loss I suspect that she has an underlying neurological etiology. My recommendation is to revisit her neurologist. Continue anti-platelet therapy and follow-up with me in 1 year for surveillance duplex for contralateral stenosis Immunizations Name Administration Dates Next Due Afluria 36 MONTHS+ (Prefille d Syringe IIV4) 11/13/2018(Deferred: Patient/family declined) Family History Medical History Relation Comments Heart Disease Brother multiple myelloma Father Heart Disease Mother Heart Disease Sister 1 Heart Disease Sister 2 Relation Status Comments Brother Daughter 1 Alive Daughter 2 Alive Father Mother Sister 1 Alive Sister 2 Alive Son Alive Social History Tobacco Use Types Packs/Day Years Used Date Smoking Tobacco: Every Day Cigarettes Smokeless Tobacco: Never Tobacco Cessation:Ready to Q uit: No; Counseling Given: No Alcohol Use Standard Drinks/Week Comments No 0 (1 standard drink = 0.6 oz pur e alcohol) AUDIT-C Answer Date Recorded Frequency of Alcohol Consumption Never 11/12/2018 Average Number of Drinks Not on file 019 Frequency of Binge Drinking Not on file 10/19 Comments No Sex and Gender Information Value Date Recorded Sex Assigned at Not on file Legal Sex Female 11:59 PM CDT Gender Identity Not on file Sexual Orientation Not on file Last Filed Vital Signs Vital Sign Reading Time Taken Comments Blood Pressure 170/74 2023 1:42 PM CDT Manual Recheck in right arm 140/84 Pulse 64 2023 1:42 PM CDT Temperature 37.1 C (98.8 F) 11/13/2018 12:36 PM CDT Respiratory Rate 18 2023 1:42 PM CDT Oxygen Saturation 96% 2023 1:4 2 PM CDT Inhaled Oxygen Concentration - - Weight 102.8 kg (226 lb 9.6 oz) 2023 1:42 PM CDT Height 165.1 cm (5' 5 ) 2023 1:42 PM CDT Body Mass Index 37.71 2023 1:42 PM CDT Plan of Treatment Health Maintenance Due Date Last Done Comments ASCVD Statin 1950 Colorectal Cancer Screening Colonoscopy (10 Years) 1950 Hepatitis C 12/01/1969 ASCVD LDL 02/09/2016 02/08/2015 Annual Medicare Wellness Visit 12/01/2016 Dexa Scan (General) 12/01/2016 Mammogram Screening 03/07/2019 03/07/2017 COVID-19 Vaccine (1 - 2023-2 5 season) 2023 Influenza Adult (#1) 2023 01/28/2022 RSV Immunization or 60+ Years (1 - 1-dose 75+ series) 12/01/2026 DTaP, Tdap and Td Vaccines ( 3 - Td or Tdap) 02/27/2029 02/27/2019, 05/16/2017 Pneumococcal Vaccine: 65+ Years Completed 10/23/2022, 07/18/2010 Zoster Vaccines Completed 03/06/2023, 11/30/2022 Meningococcal B Vaccine Aged Out No l onger eligible based on patient's age to complete this topic Meningococcal Vaccine Aged Out No avani delphine eligible based on patient's age to complete this topic RSV Immunizations Under 20 Months Aged Out No longer eligible b ased on patient's age to complete this topic Procedures Procedure Name Priority Date/Time Associated Diagnosis Comments LIPID PANEL Routine 02/08/2015 12:00 AM CONCRETE BOOM OPERATOR from Last 3 Months or Most Recently Relevant to Health Maintenance Results * LIPID PANEL (02/08/2015 12:00 AM CONCRETE BOOM OPERATOR) TRIGLYCERIDES 337 0 - 150 mg/dl [employer] TO EPIC CONVERSION CHOLESTEROL 190 0 - 200 mg/dl [employer] TO EPIC CONVERSION HDL 46 40 - 59 mg/dl [employer] TO EPIC CONVERSION LDL CONVERSION 77 0 - 100 mg/dl [employer] TO EPIC CONVERSION DIRECT LDL 99 0 - 100 mg/dL [employer] TO EPIC CONVERSION CHOL/HDL RATIO 4.1 <4.0 (Calc) [employer] TO EPIC CONVERSION NON HDL CHOLESTEROL 144 0 - 130 mg/dL [employer]IN[employer] TO EPIC CONVERSION 02/08/2015 02/08/2015 us Generic Conversion Md [facility] Final R esult MEDINFORMATIX TO EPIC CONVERSION from Last 3 Months or Most Recently Relevant to Health Maintenance Insurance AETNA AETNA Advance Directives * Full Code (Latest Code Status on File) Date Activated Date Inactivated Comments 11/13/2018 1:58 AM 11/13/2018 8:01 PM Care Teams Executive Admin Relationship Specialty Start Date End Date Mitch James MD [address] [place] [address] PCP - General INTERNAL MEDICINE 11/20/23 Hussein Rao MD [address] [place] [address] Consulting Physician INTERNAL MEDICINE 11/20/23
--- OUTSIDE RECORDS SUMMARY | 2024-03-25 13:32 | XMS_ITS | Encounter Summary ---
Author Organization [facility] Address [address] [place] [id number] Care Team Providers Care Finisher Operator Name Role Phone Leo Maya MD Primary Care Provider [phone] Mitch James MD Primary Care Provider [phone] Hussein Rao MD Unavailable Encounter Details Date Type Department Care Team (Late st Contact Info) Description 04/23/2019 Prep for Procedure [facility] [address] [place], [place] [id number] Zayda Yip, ARTIFICIAL STONE APPLICATOR [address] [place], [place] [id number] Social History Tobacco Use Types Packs/Day Years Used Date Smoking Tobacco: Every Day Cigarettes Smokeless Tobacco: Never Alcohol Use Standard Drinks/Week Comments No 0 [...] on file documented as of this encounter Functional Status * RETIRED Are you deaf or do you have serious difficulty hearing Answer Date of Assessment Author Status No 11/13/2018 4:53 PM CDT Activ e * RETIRED Are you blind or do you have serious difficulty seeing, even when wearing glasses? Answer Date of Assessment Author Status No 11/13/2018 4:53 PM CDT Activ e * Do you have serious difficulty walking or climbing stairs? Answer Date of Assessment Author Status Yes 11/13/2018 4:53 PM Verenice Workman R N Active * Do you have difficulty dressing or bathing? Answer Date of Assessment Author Status No 11/13/2018 4:53 PM Verenice Workman R N Active * Because of a physical, mental, or emotional condition, do you have difficulty doing errands alone such as visiting a doctor's office or shopping? Answer Date of Assessment Author Status Yes 11/13/2018 4:53 PM Verenice Workman R N Active documented as of this encounter Mental Status * Because of a physical, mental, or emotional condition, do you have serious difficulty concentrating, remembering, or making decisions? Answer Entry Date Author Status Yes 11/13/2018 4:53 PM Verenice Workman R N Active documented in this encounter Plan of Treatment Not on file documented as of this encounter Visit Diagnoses Diagnosis Preop examination- Primary Preoperative examination, unspecified documented in this encounter Care Teams Finisher Operator Relationship Specialty Start Date End Date Leo Maya MD [address] [place] [address] PCP - General FAMILY PRACTICE 11/12/18 11/19/23 Mitch James MD [address] [place] [address] PCP - General INTERNAL MEDICINE 11/20/23 Hussein Rao MD [address] [place] [address] Consulting Physician INTERNAL MEDICINE 11/20/23 documented as of this encounter
--- OUTSIDE RECORDS SUMMARY | 2024-03-25 13:33 | XMS_ITS | Clinical Summary ---
Author Organization [facility] D Address [address] [place] [address] Care Team Providers Care Shank Tapper Name Role Phone Mj Marquis MD Unavailable [phone] Mitch James MD Primary Care Provider [phone] Allergies Active Allergy Reactions Criticality Noted Date Comments Adhesive Itching,Rash Medium 08/13/2015 Diazepam Syncope High 10/27/2014 Tizanidine Other (See comments) Low 11/16/2019 Nightmares and confusion Medications magnesium oxide (MAG-OX) 500 mg (301.6 mg elemental) tablet Take 1 tablet (500 mg total) by mouth daily Active acetaminophen (TYLENOL EXTRA STRENGTH ORAL) 500 mg every 6 (six) hours Active garlic 1,000 mg capsule 1,[address] (CYMBALTA) 60 mg capsule Take 1 capsule (60 mg total) by mouth daily 90 capsule 1 09/15/19 19 Active Additional Information Patient taking differently: 90 mgoral Daily, Reported on 04/09/2022 CALCIUM CITRATE-VITAMIN D2 ORAL Take 1 tablet by mouth daily Active PARoxetine (PAXIL) 20 mg tabletIndications: Grief TAKE 1 TABLET ONCE DAILY INTHE MORNING 90 tablet 3 04/07/19 20 Active Additional Information Patient taking differently: 10 mg oral, Pt states takes 1/2 tablet by mouth daily, Reported on 09/02/2022 metroNIDAZOLE (FLAGYL) 500 mg tablet Take 1 tablet (500 mg total) by mouth every 8 (eight) hours 10/05/19 21 Active traMADoL (ULTRAM) 50 mg tabletIndications: Primary generalized (osteo)arthritis TAKE 1-2 TABLETS BY MOUTH DAILY AT NIGHT NEEDED FOR PAIN 60 tablet 2 03/13/19 22 Active OXcarbazepine (TRILEPTAL) 600 mg tablet Take 1.5 tablets (900 mg total) by mouth 2 (two) times a day 270 tablet 1 08/15/19 22 Active lisinopriL (PRINIVIL,ZESTRIL) 20 mg tablet Take 1 tablet (20 mg total) by mouth daily 90 tablet 3 08/15/19 22 Active aspirin 325 mg tablet Take 1 tablet (325 mg total) by mouth daily 90 tablet 3 08/15/19 22 Active clopidogreL (PLAVIX) 75 mg tablet Take 1 tablet (75 mg total) by mouth daily 90 tablet 3 08/15/19 22 Active atorvastatin (LIPITOR) 80 mg tabletIndications: Other hyperlipidemia Take 1 tablet (80 mg total) by mouth daily 90 tablet 3 08/15/19 22 Active furosemide (LASIX) 20 mg tabletIndications: Pedal edema Take 1 tablet (20 mg total) by mouth daily 90 tablet 3 08/15/19 22 Active metoprolol XL (TOPROL-XL) 25 mg extended release tablet Take 1 tablet (25 mg total) by mouth daily 90 tablet 3 08/15/19 22 Active cyanocobalamin (Vitamin B-12) 1,000 mcg tablet Take 1 tablet (1,000 mcg total) by mouth daily 90 tablet 3 08/15/19 22 Active oxybutynin (DITROPAN) 5 mg tablet Take 2 tablets (10 mg total) by mouth nightly Simple dose packaging 180 tablet 3 08/15/[address] (PROTONIX) 40 mg EC tablet Take 1 tablet (40 mg total) by mouth daily 30 tablet 11 09/05/19 22 Active primidone (MYSOLINE) 50 mg tabletIndications: Essential tremor 1/4 tab po qhs 1 week, 1/2 tab qhs 1 week, 1/4 tab qam & 1/2 tab qhs 1 week, 1/2 tab bid 1 w, 1/2 tab qam, 1 tab qhs1 week, then 1 tab bid 120 tablet 3 04/09/19 23 Active montelukast (SINGULAIR) 10 mg tablet Take 1 tablet (10 mg total) by mouth every evening 10/10/19 24 Active Active Problems Problem Noted Date Diagnosed Date Cervical dystonia 04/09/2022 Occipital neuralgia 04/09/2022 Atherosclerosis of z[place] ar heraclio of both lower extremities with intermittent claudication 06/04/2020 Assessment & Plan (07/25/2020 9:58 PM CDT): Impression: Patient reports she is doing well status post bilateral lower extremity angiogram, balloon angioplasty, and stenting to superficial femoral arteries. Distal pulses are palpable to bilateral lower extremity. Plan: Follow-up in 3 months with arterial duplex for re-evaluation. Assessment & Plan (06/04/2020 8:35 PM CDT): Impression: Patient with history of disabling claudication of both lower extremities that is disruptive of her activities of daily living. She recently underwent right lower extremity angiogram with endovascular intervention and states her disabling claudication of her right lower extremity has since subsided. She still has ongoing disabling claudication of her left lower extremity. No rest pain or ischemic ulceration. Her disabling claudication is disruptive of her activities of daily living. Plan: I recommended further surgical intervention to include a left lower extremity angiogram with possible intervention to be performed by Dr. Marquis. The procedure and associated risks were discussed with the patient detail in which she acknowledged and agreed to proceed. Claudication in peripheral vascular disease 04/18 Assessment & Plan (05/08/2020 9:44 PM CDT): Patient has developed progressive and now disabling claudication of bilateral lower extremities right leg being more affected than the left. Have recommended right lower extremity angiogram possible intervention. The procedure, indications and all risks have been thoroughly explained to the patient she understands and agrees to proceed TIA (transient ischemic attack) 11/23/2019 Uncontrolled hypertension 11/23/2019 Assessment & Plan (06/04/2020 8:33 PM CDT): Impression: Stable chronic hypertension. Plan: Medications reviewed and recommend continuing daily antihypertensive regimen as directed by patient's primary care physician. History of CVA (cerebrovascular accident) 2019 Hx of seizure disorder 11/23/2019 CVA, old, alterations of sensations 11/13/2018 Encephalopathy 11/13/2018 Seizure disorder (CMS/HCC) 11/13/2018 Essential tremor 11/13/2018 Syncope 11/13/2018 Hyponatremia 10/14/2018 Cerebral infarction due to stenosis of right car otid artery 06/17/2018 Vitamin B12 deficiency (non anemic) 06/17/2018 Neuropathy 06/04/2018 Nicotine dependence, cigarettes, uncomplicated 1 Assessment & Plan (07/25/2020 9:54 PM CDT): Discussed in length of greater than 3 minutes the importance of smoking cessation. Patient understands however she states is not ready to quit smoking. History of renal cell cancer 07/07/2017 Malignant neoplasm of left kidney 07/07/2017 Carotid occlusion, right 03/06/2017 Hx of TIA (transient ischemic attack) and stroke 02/04/2017 Pure hypercholesterolemia 02/04/2017 Assessment & Plan (06/04/2020 8:33 PM CDT): Impression: Stable chronic hypercholesterolemia. Plan: Medications reviewed I recommend continuing daily statin regimen as directed by patient's primary care physician. Anxiety about health 01/31/2017 Essential (primary) hypertension 01/31/2017 Assessment & Plan (07/25/2020 9:49 PM CDT): Impression: Blood pressure is elevated in office. Plan: Recommend patient to follow up with primary care provider for further evaluation of elevated blood pressure. Assessment & Plan (05/08/2020 9:43 PM CDT): Per patient controlled. Continue current medical therapy Mixed hyperlipidemia 01/31/2017 Bilateral carotid artery disease 01/27/2017 Assessment & Plan (05/08/2020 9:43 PM CDT): Known right internal carotid artery occlusion with mild to moderate stenosis on the left. Continue yearly duplex surveillance. Continue anti-platelet therapy and risk factor modification Assessment & Plan (06/18/2018 10:09 AM CDT): Patient has stable carotid disease with known [...] year for surveillance duplex for contralateral stenosis Morbid obesity with BMI of 40.0-44.9, adult 10/19 Assessment & Plan (07/25/2020 9:52 PM CDT): Discussed with patient about the importance of lifestyle changes and health modifications. CVA (cerebral vascular accident) 08/13/2015 Chest pain 08/13/2015 Gastroesophageal reflux disease 08/13/2015 Left sided numbness 08/13/2015 Left-sided weakness 08/13/2015 Major depression 08/13/2015 Hyperlipidemia 08/13/2015 Assessment & Plan (07/25/2020 9:50 PM CDT): Impression: Patient states cholesterol is controlled. Plan: Continue cholesterol medication as per primary care provider.~ Nausea 08/13/2015 Lesion of liver 02/16/2015 Resolved Problems Problem Noted Date Diagnosed Date Resolved Date Cerebrovascular accident (CV A) due to embolism of cerebral artery 06/17/2018 09/03/2020 Carotid stenosis, left 03/06/201704/04 Atherosclerosis of both carotid arteries 01/31/2017 04/04/2020 Immunizations Name Administration Dates Next Due Influenza, Unspecified 12/13/2019(Deferred: Cecelia ent Refused) Pneumococcal Conjugate PCV 13 07/18/2010 Pneumococcal Conjugate, Unspecified 07/18/2010 Tdap 02/27/2019,05/16/2017 Surgical History Surgery Date Site/Laterality Comments LIPOMA RESECTION HYSTERECTOMY TONSILLECTOMY ANGIOPLASTY / STENTING FEMORAL 05/22/2020 Right ANGIOPLASTY / STENTING FEMORAL 06/14/2020 Left SFA Medical History Medical History Date Comments Anemia Depression Anxiety Hyperlipidemia Hypertension Seizures (HCC) Partial seizures due to stroke Stroke (HCC) Memory loss Short term due t o stroke Cancer (CMS/HCC) (HCC) Kidney Coronary artery disease Neuropathy (CMS/HCC) in feet, bi lateral Bilateral carotid artery disease (HCC) Peripheral arterial disease (HCC) Headache, tension-type Family History Medical History Relation Name Comments Heart attack Brother Multiple myeloma Father Stroke Father Heart attack Mother Diabetes Sister 1 Heart disease Sister 1 brain tumor Sister 1 Heart disease Sister 2 Kidney disease Sister 2 Lupus Sister 2 Heart disease Sister 3 Relation Name Status Comments Brother Father Mother Sister 1 Sister 2 Sister 3 Social History Tobacco Use Types Packs/Day Years Used Date Smoking Tobacco: Every Day Cigarettes Smokeless Tobacco: Never Tobacco Cessation:Ready to Q uit: Not Asked; Counseling Given: Not Answered Alcohol Use Standard Drinks/Week Comments Not Currently 0 (1 standard drink = 0.6 oz pur e alcohol) PHQ-2 Answer Date Recorded PHQ-2 Total Score (If total score is 3 or more points, staff should administer the PHQ-9) 0 10/11/2020 Personal Safety Answer Date Recorded Getting School Help Needed Not on file 02/22 Comments No Sex and Gender Information Value Date Recorded Sex Assigned at Not on file Legal Sex Female 1:20 AM SLITTER CUT OFF OPERATOR Gender Identity Not on file Sexual Orientation Not on file Obstetrics History Last Filed Vital Signs Vital Sign Reading Time Taken Comments Blood Pressure 131/71 10/13/2023 1:06 PM CDT Pulse 70 10/13/2023 1:06 PM CDT Temperature 36.1 C (97 F) 01/23/2021 9:45 AM SLITTER CUT OFF OPERATOR Respiratory Rate 20 03/24/2023 1:27 PM SLITTER CUT OFF OPERATOR Oxygen Saturation 98% 10/13/2023 1:06 PM CDT Inhaled Oxygen Concentration - - Weight 99 kg (218 lb 3.2 oz) 10/13/2023 1:06 PM CDT Height 165.1 cm (5' 5 ) 10/13/2023 1:06 PM CDT Body Mass Index 36.31 10/13/2023 1:06 PM CDT Plan of Treatment Health Maintenance Due Date Last Done Comments Colon Cancer Screening-Colonoscopy 1950 Hepatitis C Screening 1950 Osteoporosis Screening-Bone Density Scan 1950 Hepatitis B Screening 12/01/1969 Zoster Vaccine (1 of 2) 12/01/2001 Pneumococcal vaccine 65+ (2 of 2 - PPSV23 or PCV20) 09/12/2010 07/18/2010, 07/18/2010 Well Visit 65+ 12/01/2016 Breast Cancer Screening-Mammogram 03/07/2018 018 Fall Risk Assessment 06/05/2019 06/04/2018 Depression Screening 10/11/2021 10/11/2020, 11/18/2018, 06/04/2018, Additional history exists Influenza Vaccine (#1) 2023 DTaP/Tdap/Td Vaccine (3 - Td or Tdap) 02/27/2029 02/27/2019, 05/16/2017 Procedures Procedure Name Priority Date/Time Associated Diagnosis Comments SCREENING MAMMOGRAM 2D BILATERAL Routine 03/07/2017 12:35 PM SLITTER CUT OFF OPERATOR from Last 3 Months or Most Recently Relevant to Health Maintenance Results * Screening Mammogram 2D Bilateral (03/07/2017 12:35 PM SLITTER CUT OFF OPERATOR) Anatomical Region Laterality Modality Breast Bilateral Mammography 03/07/2017 12:3 5 PM SLITTER CUT OFF OPERATOR Impressions 03/11/2017 2:30 PM SLITTER CUT OFF OPERATOR BI-RAD 1 NEGATIVE There is no mammographic evidence of malignancy. A 1 year screening mammogram is recommended. The patient has been or will be contacted. The patient will be entered into a reminder system with a target due date of 1 year for her next screening exam. Electronically signed by: Dr. Mayekl mathis/megha:03/11/2017 14:29:28 Impregnator And Drier: Beth Gonzalez (R)), [facility] letter sent: Normal Exam Reading location: BI-RADS: 1 Negative [EOD] Narrative 03/11/2017 2:30 PM SLITTER CUT OFF OPERATOR - MG BILATERAL DIGITAL SCREENING MAMMOGRAM WITH MEDIOLATERAL OBLIQUE CRANIOCAUDAL: 03/07/2017 The study was acquired using full field digital technology and interpreted from soft copy. CLINICAL: Routine mammogram. Denies any problems today. No personal history of breast cancer. No family history of breast cancer. COMPARISONS: Comparison is made to exams dated: 02/08/2010 mammogram and 03/10/2014 mammogram - [facility]. BREAST TISSUE: The tissue of both breasts is almost entirely fatty. FINDINGS: No significant masses, calcifications, or other findings are seen in either breast. There has been no significant interval change. Procedure Note Provider, MD Harjinder - 07/04/2020 - MG BILATERAL DIGITAL SCREENING MAMMOGRAM WITH MEDIOLATERAL OBLIQUECRANIOCAUDAL: 03/07/2017 The study was acquired using full field digital technology and interpretedfrom soft copy. CLINICAL: Routine mammogram. Denies any problems today. No personalhistory of breast cancer. No family history of breast cancer. COMPARISONS: Comparison is made to exams dated: 02/08/2010 mammogram and 03/10/2014 mammogram - [facility]. BREAST TISSUE: The tissue of both breasts is almost entirely fatty. FINDINGS: No significant masses, calcifications, or other findings areseen in either breast. There has been no significant interval change. IMPRESSION: BI-RAD 1 NEGATIVE There is no mammographic evidence of malignancy. A 1 year screeningmammogram is recommended. The patient has been or will be contacted. The patient will be entered into a reminder system with a target due dateof 1 year for her next screening exam. Electronically signed by: Dr. Maykel Gotti M.D. nd/megha:03/11/2017 14:29:28 Impregnator And Drier: Beth DEVRIES (Uzair)(Natalya), [facility] letter sent: Normal Exam Reading location: BI-RADS: 1 Negative [EOD] us Fady CASAS IMG MAMMO PROCEDURES Final Result from Last 3 Months or Most Recently Relevant to Health Maintenance Insurance [facility] AETNA MEDICARE [facility] Advance Directives For more information, please contact: [phone] * LIMITED - No CPR (Latest Code Status on File) Date Activated Date Inactivated Comments 09/03/2020 8:55 PM 09/04/2020 9:33 PM Question Answer Comments Provide aggressive medical m anagement before a full cardiopulmonary arrest occurs. Use antibiotics, IV Fluids, and medical treatment unless specifically selected below: No intubationNo non-invasive ventilationNo cardioversion Healthcare Agents on File Name Relationship Healthcare Agent Relationshi p Communication Anai Richards Daughter Health Care Agent Care Teams Shank Tapper Relationship Specialty Start Date End Date Mitch James MD [address] [id number] PCP - General Internal Medicine 03/01/22 Mj Marquis MD [address] [facility] [address] [address] Surgeon Surgery 09/04/20
--- OUTSIDE RECORDS SUMMARY | 2024-03-25 13:33 | XMS_ITS | Encounter Summary ---
Author Organization [facility] Care Team Providers Care Cash Applications Coordinator Name Role Phone Fady Noble Primary Care Provide r Leo Maya MD Primary Care Provid er Mj Marquis MD Unavailable [phone] Berna De León Unavailable [phone] Zayda Bauman LPN Unavailable [phone] Berna De León Unavailable [phone] Mitch James MD Primary Care Provider [phone] Encounter Details Date Type Department Care Team (Latest Contact Info) Description 01/19/2018 Orders Only [facility] CLINCONV ProviderHarjinder MD [address] [place] [id number] Social History Tobacco Use Types Packs/Day Years Used Date Smoking Tobacco: Former Comments Unknown Sex and Gender Information Value Date Recorded Sex Assigned at Not on file Legal Sex Female 1:20 AM FUR IRONER Gender Identity Not on file Sexual Orientation Not on file documented as of this encounter Plan of Treatment Not on file documented as of this encounter Procedures Procedure Name Priority Date/Time Associated Diagnosis Comments SCAN - PATHOLOGY 01/23/2018 12:0 0 AM FUR IRONER documented in this encounter Results * SCAN - PATHOLOGY (01/23/2018 12:00 AM FUR IRONER) Narrative 01/23/2018 12:00 AM FUR IRONER Ordered by an unspecified provider. us Historical Provider Final Res ult documented in this encounter Visit Diagnoses Not on filedocumented in this encounter Care Teams Cash Applications Coordinator Relationship Specialty Start Date End Date Fady Noble PA [address] [facility] [address] [place] [address] PCP - General 01/27/17 06/03/18 Leo Maya MD [address] [place] [address] PCP - General Family Medicine 06/04/18 02/28/22 Mitch James MD [address] [place] [address] [place] [address] PCP - General Internal Medicine 03/01/22 Mj Marquis MD [address] [facility] [address] [place] [address] Surgeon Surgery 09/04/20 Berna De León [facility] [address] [place] [address] ACO Care Nuts And Bolts Assembler 09/05/20 09/05/20 Zayda Bauman LPN [address] [place] [address] [place] [address] Fender Mechanic 09/07/20 09/07/20 Berna De León [address] [place] [address] [place] [address] ACO Care Nuts And Bolts Assembler 09/07/20 09/14/20 documented as of this encounter
--- OUTSIDE RECORDS SUMMARY | 2024-03-25 13:33 | XMS_ITS ---
Author Organization [facility] D Address [address] [place] [address] Care Team Providers Care Internal Medicine Hospitalist Name Role Phone Mj Marquis MD Unavailable [phone] Mitch James MD Primary Care Provider [phone] Active Problems Problem Noted Date Diagnosed Date Cervical dystonia 04/09/2022 Occipital neuralgia 04/09/2022 Atherosclerosis of [place] ar heraclio of both lower extremities with [...] provider.~ Nausea 08/13/2015 Lesion of liver 02/16/2015 Current Oncology Plans No current plan information found. Past Plans No past plan information found. Radiation Treatments * No radiation treatments are documented [facility]. Treatments may have been administered in another system. Lifetime Dose Tracking * Chemical Lifetime Dose Automatic Entry Manual Entr y DLP 2,175 mGycm 2,175 mGycm 0 mGycm Resolved Problems Problem Noted Date Diagnosed Date Resolved Date Cerebrovascular accident (CV A) due to embolism of cerebral artery 06/17/2018 09/03/2020 Carotid stenosis, left 03/06/201704/04 Atherosclerosis of both carotid arteries 01/31/2017 04/04/2020
--- OUTSIDE RECORDS SUMMARY | 2024-03-25 13:33 | XMS_ITS | Referral Summary ---
Author Organization [facility] D Address [address] [place] [id number] Care Team Providers Care Outside Dealer Sales Representative Name Role Phone Mj Marquis MD Unavailable [phone] Mitch James MD Primary Care Provider [phone] Allergies Active Allergy Reactions Criticality Noted Date [...] dystonia 04/09/2022 Occipital neuralgia 04/09/2022 Atherosclerosis of [place] ar heraclio of both lower extremities with [...] 07/18/2010 Pneumococcal Conjugate, Unspecified 07/18/2010 Tdap 02/27/2019,05/16/2017 Social History Tobacco Use Types Packs/Day Years [...] on file Legal Sex Female 1:20 AM IRRIGATION INSTALLATION SPECIALIST Gender Identity Not on file Sexual Orientation Not on file Last Filed Vital Signs Vital Sign Reading Time Taken Comments Blood Pressure 131/71 10/13/2023 1:06 PM CDT Pulse 70 10/13/2023 1:06 PM CDT Temperature 36.1 C (97 F) 01/23/2021 9:45 AM IRRIGATION INSTALLATION SPECIALIST Respiratory Rate 20 03/24/2023 1:27 PM IRRIGATION INSTALLATION SPECIALIST Oxygen Saturation 98% 10/13/2023 1:06 PM CDT Inhaled Oxygen Concentration - - Weight 99 kg (218 lb 3.2 oz) 10/13/2023 1:06 PM CDT Height 165.1 cm (5' 5 ) 10/13/2023 1:06 PM CDT Body Mass Index 36.31 10/13/2023 1:06 PM CDT Plan of Treatment Not on file Procedures Procedure Name Priority Date/Time Associated Diagnosis Comments SCREENING MAMMOGRAM 2D BILATERAL Routine 03/07/2017 12:35 PM IRRIGATION INSTALLATION SPECIALIST from Last 3 Months or Most Recently Relevant to Health Maintenance Results * Screening Mammogram 2D Bilateral (03/07/2017 12:35 PM IRRIGATION INSTALLATION SPECIALIST) Anatomical Region Laterality Modality Breast Bilateral Mammography 03/07/2017 12:3 5 PM IRRIGATION INSTALLATION SPECIALIST Impressions 03/11/2017 2:30 PM IRRIGATION INSTALLATION SPECIALIST BI-RAD 1 NEGATIVE There is no mammographic evidence of malignancy. A 1 year screening mammogram is recommended. The patient has been or will be contacted. The patient will be entered into a reminder system with a target due date of 1 year for her next screening exam. Electronically signed by: Dr. Maykel mathis/megha:03/11/2017 14:29:28 Tube Cutter: Beth Gonzalez (R)), [facility] letter sent: Normal Exam Reading location: BI-RADS: 1 Negative [EOD] Narrative 03/11/2017 2:30 PM IRRIGATION INSTALLATION SPECIALIST - MG BILATERAL DIGITAL SCREENING MAMMOGRAM WITH MEDIOLATERAL OBLIQUE CRANIOCAUDAL: 03/07/2017 The study was acquired using full field digital technology and interpreted from soft copy. CLINICAL: Routine mammogram. Denies any problems today. No personal history of breast cancer. No family history of breast cancer. COMPARISONS: Comparison is made to exams dated: 02/08/2010 mammogram and 03/10/2014 mammogram - [facility]. BREAST TISSUE: The tissue of both [...] dated: 02/08/2010 mammogram and 03/10/2014 mammogram - [facility]. BREAST TISSUE: The tissue of both [...] Electronically signed by: Dr. Maykel Gotti M.D. ms/megha:03/11/2017 14:29:28 Tube Cutter: Beth DEVRIES (Uzair)(Natalya), [facility] letter sent: Normal Exam Reading location: BI-RADS: 1 Negative [EOD] us Fady CASAS IMG MAMMO PROCEDURES Final Result from Last 3 Months or Most Recently Relevant to Health Maintenance Insurance [employer] [facility] Advance Directives For more information, please contact: [phone] * LIMITED - No CPR (Latest Code [...] Richards Daughter Health Care Agent Care Teams Outside Dealer Sales Representative Relationship Specialty Start Date End Date Mitch James MD [address] [facility] [address] [place] [address] PCP - General Internal Medicine 03/01/22 Mj Marquis MD [address] [facility] [address] [place] [address] Surgeon Surgery 09/04/20
== END 2024-03-25 13:23 | disposition home or self-care (01) ==
LOC: CHSIMG 13:23
PROVIDERS: PCP Internal Medicine; Visit Provider Internal Medicine
DX: Z12.31 Encounter for screening mammogram for malignant neoplasm of breast (principal)
CPT/HCPCS: 77063; 77067